=== PATIENT | male | born 1955 | race Caucasian/White ===

== ENCOUNTER 2018-09-21 05:11 | Emergency (ER) | payer MEDICAID, OTHER ==
[2018-09-21] MEDS ORDERED: TRANDATE 20 MG/5 ML SYRINGE IV ONE ×2 (05:46→06:04)
[2018-09-21] MEDS ORDERED: Sodium Chloride 0.9% 1000 ML 1,000 ML ONE (05:48)
[2018-09-21] MEDS ORDERED: Sodium Chloride 0.9% 1000 ML 1,000 ML IV SCH (06:00)
--- NOTE | 2018-09-21 06:01 | ERPHSYRPT ---
- History of Present Illness Source: family Exam Limitations: clinical condition Timing/Duration: today Severity: severe Character of Deficits: general (difuse) Deficits: cannot stand, cannot walk Baseline/Normal Cognition: alert oriented x 3 Current Cognition: alert but confused Baseline Gait: walks w/o assistance Associated Symptoms: denies symptoms <MATILDEVANI - Last Filed: 09/21/18 07:07> <RICHAR DURBIN - Last Filed: 09/21/18 11:16> - History of Present Illness Time Seen by Provider: 09/21/18 05:40 Physician History: According to his ex , he called is neighbor about one hour ago. His neighbor rushed to his home, she found him on the floor, he is alert, lethargic , verbally responding but confused. Upon arrival his rectal temperature is 93.4 F. He answers simple questions, denies any pain, headaches, chest pain, SOB, nausea, he moves all 4 extremities.His blood pressure was found elevated. According to his ex he has not been taking any medications. (VANI CLAYTON ) Allergies/Adverse Reactions: naproxen Allergy (Verified 09/21/18 05:14) - Review of Systems Constitutional: Other (hypothermia) Respiratory: No Symptoms Cardiac: No Symptoms Abdominal/Gastrointestinal: No Symptoms All Other Systems: Unable due to condition <VANI CLAYTON - Last Filed: 09/21/18 07:07> - [place] Coma Scale Best Eye Response ([place]): (4) open spontaneously Best Verbal Response (Vin[place]): (4) confused conversation Best Motor Response (Vin[place]): (5) localizes to pain [place] Total: 13 - Physical Exam General Appearance: no apparent distress Eye Exam: bilateral eye: PERRL, EOMI Ears, Nose, Throat Exam: normal ENT inspection, pharynx normal, moist mucous membranes Neck Exam: normal inspection, non-tender, supple, No carotid bruit, No JVD Respiratory: normal breath sounds, lungs clear, airway intact, No chest tenderness, No respiratory distress Cardiovascular: regular rate/rhythm, normal heart sounds, normal peripheral pulses, No murmur Gastrointestinal: soft, normal bowel sounds, No tenderness, No distention, No mass, No guarding, No ecchymosis, No pulsatile mass, No rebound, No organomegaly Male Genitalia: normal genitalia Back Exam: normal inspection, No CVA tenderness Extremity Exam: normal inspection, pelvis stable Peripheral Pulses: carotid (R): 3+, carotid (L): 3+, femoral (R): 2+, femoral (L ): 2+, dorsalis-pedis (R): 2+, dorsalis-pedis (L): 2+ Mental Status: alert, disoriented to place, disoriented to time, lethargy improvement manager Exam: normal speech Motor/Sensory: no motor deficit DTR: bicep (R): 2+, bicep (L): 2+, knee (R): 2+, knee (L): 2+, ankle (R): 2+, ankle (L): 2+ Skin Exam: normal color, warm, dry, No rash SpO2 Interpretation: normal O2 Delivery: Room Air <LEELAUNRULYVANI Filed: 09/21/18 07:07> - Nursing Vital Signs Nursing Vital Signs: Initial Vital Signs Temperature 93.2 F 09/21/18 05:15 Pulse Rate 66 09/21/18 05:15 Respiratory Rate 18 09/21/18 05:15 Blood Pressure 212/110 09/21/18 05:15 O2 Sat by Pulse Oximetry 94 L 09/21/18 05:15 Pain Scale Pain Intensity 0 - Course Nursing assessment & vital signs reviewed: Yes EKG Interpreted by Me: RATE (61/min), NORMAL AXIS, NORMAL INTERVALS, Right Bundle Branch Block, Non-specific ST Changes <LEELAUNRULYVANI Filed: 09/21/18 07:07> Ordered Tests: Active Orders 24 hr Category Date Time Status Crop Duster STAT Care 09/21/18 05:49 Active EKG-ER Only STAT Care 09/21/18 05:46 Active IV Insertion STAT Care 09/21/18 05:46 Active CERVICAL SPINE WO CONTRAST [CT] Stat Exams 09/21/18 05:51 Completed CHEST 1 VIEW (PORTABLE) Stat Exams 09/21/18 05:49 Completed HEAD WITHOUT CONTRAST [CT] Stat Exams 09/21/18 05:52 Completed PELVIS WITHOUT CONTRAST [CT] Stat Exams 09/21/18 07:08 Completed ARTERIAL BLOOD GASES Urgent Lab 09/21/18 06:07 Completed BLOOD CULTURE Stat Lab 09/21/18 07:56 Received CBC W DIFF Stat Lab 09/21/18 06:00 Completed CK-Creatinine Phosphokinase Stat Lab 09/21/18 06:00 Completed CMP Stat Lab 09/21/18 06:00 Completed ETHYL ALCOHOL Stat Lab 09/21/18 06:00 Completed Glucose,Critical Care Stat Lab 09/21/18 07:45 Completed Lactic Acid Stat Lab 09/21/18 06:07 Completed Lactic Acid Stat Lab 09/21/18 08:11 Completed Lactic Acid Stat Lab 09/21/18 10:45 Ordered MAGNESIUM Stat Lab 09/21/18 06:00 Completed NT PRO BNP Stat Lab 09/21/18 06:00 Completed PROTIME WITH INR Stat Lab 09/21/18 06:00 Completed PTT Stat Lab 09/21/18 06:00 Completed TROPONIN Q3H Lab 09/21/18 06:00 Completed TROPONIN Q3H Lab 09/21/18 07:52 Completed Medication Summary Discontinued Medications Generic Name Dose Route Start Last Admin Trade Name Freq PRN Reason Stop Dose Admin Sodium Chloride Confirm 09/21/18 05:48 Sodium Chloride 0.9% 1000 Ml Administered 09/21/18 05:49 Dose 1,000 mls @ ud .ROUTE .STK-MED ONE Sodium Chloride 1,000 mls @ 150 mls/hr 09/21/18 06:00 09/21/18 06:06 Sodium Chloride 0.9% 1000 Ml IV 10/21/18 05:59 150 mls/hr .Q6H40M BRUCE Administration Labetalol HCl 200 mg/ Sodium 190 mls @ 120 mls/hr 09/21/18 08:15 Chloride IV 10/21/18 08:14 .Q1H35M BRUCE Labetalol HCl 20 mg 09/21/18 05:46 09/21/18 06:05 Trandate 20 Mg/5 Ml Syringe IV 09/21/18 05:47 20 mg STAT ONE Administration Labetalol HCl Confirm 09/21/18 06:04 Trandate 20 Mg/5 Ml Syringe Administered 09/21/18 06:05 Dose 20 mg IV .STK-MED ONE Lab/Rad Data: Laboratory Result Diagrams 09/21/18 06:00 09/21/18 06:00 Laboratory Results 09/21/18 09/21/18 09/21/18 Range/Units 08:11 07:52 07:45 WBC (4.0-10.5) K/mm3 RBC (4.1-5.6) M/mm3 Hgb (12.5-18.0) gm/dl Hct (42-50) % MCV (78-100) fl MCH (26-32) pg MCHC (32-36) g/dl RDW (11.5-14.0) % Plt Count (150-450) K/mm3 MPV (6-9.5) fl Gran % (36.0-66.0) % Eos # (Auto) (0-0.5) Absolute Lymphs (auto) (1.0-4.6) Absolute Monos (auto) (0.0-1.3) Lymphocytes % (24.0-44.0) % Monocytes % (0.0-12.0) % Eosinophils % (0.00-5.0) % Basophils % (0.0-0.4) % Absolute Granulocytes (1.4-6.9) Basophils # (0-0.4) PT (8.83-12.87) SECONDS INR (0.8-3.0) APTT (24.1-36.1) SECONDS Puncture Site pCO2 (35-45) mmHg pO2 (75-100) mmHg Base Excess (-2.0-2.0) O2 Saturation (94-100) g/dF ABG pH (7.35-7.45) ABG HCO3 (22-28) ABG O2 Sat (Measured) (95-100) % Taiwo Test A-a Gradient a/A Ratio Hemoglobin Carboxyhemoglobin (0.0-6.9) % THgb Methemoglobin (1.4-1.5) % Temperature C POC O2 Flow Rate % Sodium (137-145) mmol/L Potassium (3.5-5.1) mmol/L Chloride (98-107) mmol/L Carbon Dioxide (22-30) mmol/L Anion Gap (5-15) MEQ/L BUN (9-20) mg/dL Creatinine (0.66-1.25) mg/dL Estimated GFR ML/MIN Glucose 215 H (74-106) mg/dL Lactic Acid 2.2 H (0.4-2.0) Calcium (8.4-10.2) mg/dL Magnesium (1.6-2.3) mg/dL Total Bilirubin (0.2-1.3) mg/dL AST (17-59) U/L ALT (0-50) U/L Alkaline Phosphatase (38-126) U/L Creatine Kinase (55-170) U/L Troponin I 0.026 (0.000-0.034) ng/mL NT-Pro-B Natriuret Pep (0-900) pg/mL Serum Total Protein (6.3-8.2) g/dL Albumin (3.5-5.0) g/dL Ethyl Alcohol (0-10) mg/dL 09/21/18 09/21/18 09/21/18 Range/Units 06:07 06:07 06:00 WBC (4.0-10.5) K/mm3 RBC (4.1-5.6) M/mm3 Hgb (12.5-18.0) gm/dl Hct (42-50) % MCV (78-100) fl MCH (26-32) pg MCHC (32-36) g/dl RDW (11.5-14.0) % Plt Count (150-450) K/mm3 MPV (6-9.5) fl Gran % (36.0-66.0) % Eos # (Auto) (0-0.5) Absolute Lymphs (auto) (1.0-4.6) Absolute Monos (auto) (0.0-1.3) Lymphocytes % (24.0-44.0) % Monocytes % (0.0-12.0) % Eosinophils % (0.00-5.0) % Basophils % (0.0-0.4) % Absolute Granulocytes (1.4-6.9) Basophils # (0-0.4) PT (8.83-12.87) SECONDS INR (0.8-3.0) APTT (24.1-36.1) SECONDS Puncture Site LEFT BRACHIAL pCO2 45 (35-45) mmHg pO2 71 L (75-100) mmHg Base Excess 1.7 (-2.0-2.0) O2 Saturation 93.4 L (94-100) g/dF ABG pH 7.39 (7.35-7.45) ABG HCO3 27.2 (22-28) ABG O2 Sat (Measured) 96.8 (95-100) % Taiwo Test NOT APPLICABLE A-a Gradient 22 a/A Ratio 0.76 Hemoglobin 15.1 Carboxyhemoglobin 2.7 (0.0-6.9) % THgb Methemoglobin 0.7 L (1.4-1.5) % Temperature 37.0 C POC O2 Flow Rate 21 % Sodium (137-145) mmol/L Potassium 3.0 L (3.5-5.1) mmol/L Chloride (98-107) mmol/L Carbon Dioxide (22-30) mmol/L Anion Gap (5-15) MEQ/L BUN (9-20) mg/dL Creatinine (0.66-1.25) mg/dL Estimated GFR ML/MIN Glucose (74-106) mg/dL Lactic Acid 2.3 H (0.4-2.0) Calcium (8.4-10.2) mg/dL Magnesium (1.6-2.3) mg/dL Total Bilirubin (0.2-1.3) mg/dL AST (17-59) U/L ALT (0-50) U/L Alkaline Phosphatase (38-126) U/L Creatine Kinase (55-170) U/L Troponin I 0.024 (0.000-0.034) ng/mL NT-Pro-B Natriuret Pep (0-900) pg/mL Serum Total Protein (6.3-8.2) g/dL Albumin (3.5-5.0) g/dL Ethyl Alcohol (0-10) mg/dL 09/21/18 09/21/18 09/21/18 Range/Units 06:00 06:00 06:00 WBC 8.2 (4.0-10.5) K/mm3 RBC 5.08 (4.1-5.6) M/mm3 Hgb 14.4 (12.5-18.0) gm/dl Hct 43.7 (42-50) % MCV 86.0 (78-100) fl MCH 28.3 (26-32) pg MCHC 33.0 (32-36) g/dl RDW 14.8 H (11.5-14.0) % Plt Count 305 (150-450) K/mm3 MPV 10.1 H (6-9.5) fl Gran % 71.2 H (36.0-66.0) % Eos # (Auto) 0.15 (0-0.5) Absolute Lymphs (auto) 1.76 (1.0-4.6) Absolute Monos (auto) 0.40 (0.0-1.3) Lymphocytes % 21.5 L (24.0-44.0) % Monocytes % 4.9 (0.0-12.0) % Eosinophils % 1.8 (0.00-5.0) % Basophils % 0.6 (0.0-0.4) % Absolute Granulocytes 5.81 (1.4-6.9) Basophils # 0.05 (0-0.4) PT 12.2 (8.83-12.87) SECONDS INR 1.05 (0.8-3.0) APTT 29.5 (24.1-36.1) SECONDS Puncture Site pCO2 (35-45) mmHg pO2 (75-100) mmHg Base Excess (-2.0-2.0) O2 Saturation (94-100) g/dF ABG pH (7.35-7.45) ABG HCO3 (22-28) ABG O2 Sat (Measured) (95-100) % Taiwo Test A-a Gradient a/A Ratio Hemoglobin Carboxyhemoglobin (0.0-6.9) % THgb Methemoglobin (1.4-1.5) % Temperature C POC O2 Flow Rate % Sodium 140 (137-145) mmol/L Potassium 3.1 L (3.5-5.1) mmol/L Chloride 104 (98-107) mmol/L Carbon Dioxide 28 (22-30) mmol/L Anion Gap 11.9 (5-15) MEQ/L BUN 16 (9-20) mg/dL Creatinine 1.14 (0.66-1.25) mg/dL Estimated GFR > 60.0 ML/MIN Glucose 248 H (74-106) mg/dL Lactic Acid (0.4-2.0) Calcium 9.4 (8.4-10.2) mg/dL Magnesium 2.1 (1.6-2.3) mg/dL Total Bilirubin 0.40 (0.2-1.3) mg/dL AST 23 (17-59) U/L ALT 31 (0-50) U/L Alkaline Phosphatase 86 (38-126) U/L Creatine Kinase 104 (55-170) U/L Troponin I (0.000-0.034) ng/mL NT-Pro-B Natriuret Pep 328 (0-900) pg/mL Serum Total Protein 7.7 (6.3-8.2) g/dL Albumin 4.1 (3.5-5.0) g/dL Ethyl Alcohol < 10 (0-10) mg/dL - Progress Progress: improved <VANI CLAYTON - Last Filed: 09/21/18 07:07> <RICHAR DURBIN - Last Filed: 09/21/18 11:16> - Progress Progress Note: 09/21/18 07:08 Case was discussed with Dr Durbin, he will follow up on patient's results. ( VANI CLAYTON) 09/21/18 07:57 + This is a 63-year-old white male initially seen by Dr. Umanzor patient apparently found on a somewhat lethargic is noted to be hypertensive and hypothermic on arrival. Patient is just back from CT. he appears to have a celebellar bleed on Ct my read. Patient is somnolent but does answer questions and opens eyes to command moves to command. Patient initially given labetalol on arrival initial blood pressure 212/110. Blood pressure is now 179/100. Call has been placed to [facility] family and consumer sciences teacher for possible transfer . 09/21/18 08:[address] intercranial bleed cerebellar area. Chest x-ray no acute disease process noted. CT C-spine my read no acute fractures noted. Patient with sinus rhythm 61 bpm normal axis of T wave inversion V1 through V3 no acute ST elevation Patient was hypertensive last blood pressure 179 over 104, labetalol drip is starting, I patient receiving normal saline at 150 mL per hour. Patient with [place] Coma Scale 12-13. I discussed case with Dr. north at [facility] she accepted patient for transfer. Diagnosis mental status change 2. Intercranial bleed 3. Hypertension or. Hypothermia. Patient will be sent by [facility] ambulance given a bear hugger. His 09/21/18 08:28 Physical examination patient will respond to patient's name. Opens eyes to command. Moves to command. Cannot understand speech at this time.. GCS 12-13. Head is atraumatic normocephalic. Eyes PERRLA EOMI fundi are unremarkable. Nose is clear throat is clear. Neck is nontender Lungs are clear. Heart regular rate and rhythm without murmur abdomen soft nontender nondistended positive bowel sounds. Extremities pulses equal symmetrical 2 over 4. Neuro as noted above. 09/21/18 11:15 (RICHAR DURBIN) <VANI CLAYTON - Last Filed: 09/21/18 07:07> - Departure Departure Disposition: Transfer ([facility]) Critical Care Time: No <RICHAR DURBIN - Last Filed: 09/21/18 11:16> - Departure Clinical Impression: Intracranial bleed Change in mental status Qualifiers: Altered mental status type: unspecified Qualified Code(s): R41.82 - Altered mental status, unspecified Hypothermia Qualifiers: Encounter type: initial encounter Qualified Code(s): T68.XXXA - Hypothermia, initial encounter Hypertension Qualifiers: Hypertension type: unspecified Qualified Code(s): I10 - Essential (primary) hypertension Condition: Fair Referrals: RONNIE RICCI PA [Primary Care Provider] -
[2018-09-21 06:18] LABS: BASOPHIL % 0.6 % (0.0-0.4); Basophil (Absolute #) 0.05 (0-0.4); Eosinophil % 1.8 % (0.00-5.0); Eosinophil (Absolute #) 0.15 (0-0.5); Granulocyte Absolute (ANC) 5.81 (1.4-6.9); Granulocytes % 71.2 % (36.0-66.0); Hematocrit 43.7 % (42-50); Hemoglobin 14.4 gm/dl (12.5-18.0); Lymphocyte (Absolute #) 1.76 (1.0-4.6); Lymphocytes % 21.5 % (24.0-44.0); Mean Corpuscular Hemoglobin 28.3 pg (26-32); Mean Platelet Volume 10.1 fl (6-9.5); Monocytes % 4.9 % (0.0-12.0); Platelet Count 305 K/mm3 (150-450); Red Blood Count 5.08 M/mm3 (4.1-5.6); Red Cell Distribution Width 14.8 % (11.5-14.0); White Blood Count 8.2 K/mm3 (4.0-10.5)
[2018-09-21 06:21] LABS: A-aADO2 22; ABG HEMOGLOBIN 15.1; ARTERIAL BLD GAS O2 SATURATION 96.8 % (95-100); ARTERIAL BLOOD GAS BASE EXCESS 1.7 (-2.0-2.0); ARTERIAL BLOOD GAS FIO2 21 %; ARTERIAL BLOOD GAS PCO2 45 mmHg (35-45); ARTERIAL BLOOD GAS PO2 71 mmHg (75-100); ARTERIAL BLOOD GAS pH 7.39 (7.35-7.45); CARBOXYHEMOGLOBIN 2.7 % THgb (0.0-6.9); HCO3- 27.2 (22-28); HGB O2 SAT 93.4 g/dF (94-100); Methhemoglobin 0.7 % (1.4-1.5); paO2 pAO1 0.76
[2018-09-21 06:22] LABS: ABG SITE LEFT BRACHIAL
[2018-09-21 06:24] LABS: Lactic Acid 2.3 (0.4-2.0)
[2018-09-21 06:35] LABS: INR 1.05 (0.8-3.0); PROTIME 12.2 SECONDS (8.83-12.87)
[2018-09-21 06:36] LABS: PTT 29.5 SECONDS (24.1-36.1)
[2018-09-21 06:38] LABS: ALBUMIN 4.1 g/dL (3.5-5.0); ALKALINE PHOSPHATASE 86 U/L (38-126); ANION GAP 11.9 MEQ/L (5-15); BLOOD UREA NITROGEN 16 mg/dL (9-20); CHLORIDE 104 mmol/L (98-107); CK-Creatinine Phosphokinase 104 U/L (55-170); Calcium 9.4 mg/dL (8.4-10.2); Carbon Dioxide 28 mmol/L (22-30); Creatinine 1 1.14 mg/dL (0.66-1.25); ETHYL ALCOHOL < 10 mg/dL (0-10); Glucose 248 mg/dL (74-106); MAGNESIUM 2.1 mg/dL (1.6-2.3); NT PRO BNP 328 pg/mL (0-900); Potassium 3.1 mmol/L (3.5-5.1); SGOT/AST 23 U/L (17-59); SGPT/ALT 31 U/L (0-50); SODIUM 140 mmol/L (137-145); Total Protein 7.7 g/dL (6.3-8.2)
[2018-09-21] MEDS ORDERED: TRANDATE 100 MG/20 ML MDV FOR DRIP*** 200 MG in Sodium Chloride 0.9% 150 ML 150 ML IV SCH (08:15)
[2018-09-21 08:30] VITALS: BP 179/104; PULSE 58; O2SAT 98
--- NOTE | 2018-09-21 08:35 | XRAY ---
Indication: Found unresponsive on floor. Multiple contiguous axial images obtained through the cervical spine. Sagittal and coronal reformatted images obtained. Comparison: None Axial images negative for acute fracture, suspicious bony lesions, or spinal canal stenosis. Minimal C5-C6 endplate spurring and mild multilevel bilateral degenerative facet hypertrophy. Sagittal and coronal reformatted images demonstrates normal alignment with vertebral body heights/disc spaces maintained. No acute compression fracture, subluxation, or jumped facet. Normal-appearing cranial cervical junction. Visualized noncontrasted soft tissues unremarkable. Incidental biapical pleural-parenchymal fibrosis/scarring. CT head reported separately. Impression: 1. Negative acute fracture/subluxation. 2. Incidental multilevel degenerative changes. CT DI 64.26
--- NOTE | 2018-09-21 08:35 | XRAY ---
Indication: Found unresponsive. Cerebellar bleed. Multiple contiguous axial images obtained through the head without contrast. Comparison: None Left cerebellum demonstrates 1.7 x 2.7 x 2.7 cm focus of acute parenchymal hemorrhage without significant mass effect. Small subcentimeter remote infarct in the left mid periventricular white matter. Fourth ventricle is midline without hydrocephalus. [place]-white matter differentiation preserved. Bony calvarium intact. Visualized paranasal sinuses and mastoid air cells are clear. Impression: 1. Left cerebellum acute parenchymal hemorrhage without mass effect as detailed. Rule out hypertension as etiology. 2. 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 CT DI 50.75
--- NOTE | 2018-09-21 08:41 | XRAY ---
Indication: Found unresponsive. Comparison: None Portable chest is slightly underinflated without focal infiltrate, consolidation, or large effusion. Heart is not enlarged with previous cardiac valvular surgery. Bony thorax intact with mild osteopenia. Impression: Nonacute chest with chronic features.
--- NOTE | 2018-09-21 08:41 | XRAY ---
Indication: Found unresponsive on floor. Multiple contiguous axial images obtained through the pelvis with special attention to the osseous structures. Sagittal and coronal reformatted images obtained. Comparison: None Age-related osteopenia. No acute fracture or suspicious bony lesions. Hips demonstrate mild/moderate degenerative arthropathy, left greater than right. L4-L5 broad-based disc bulge with spinal canal stenosis. Visualized noncontrasted soft tissues demonstrates sigmoid diverticulosis. Significantly distended urinary bladder concerning for outlet obstruction versus neurogenic bladder. [place] benign prostate calcifications and scattered aortoiliac calcifications. Impression: 1. Negative acute fracture/dislocation. 2. Osteopenia and bilateral hip degenerative arthropathy, left greater than right. 3. Abnormally distended urinary bladder. Rule out outlet obstruction versus neurogenic bladder. 4. L4-L5 disc bulge with spinal canal stenosis. Outpatient MRI may yield further information. 5. Sigmoid diverticulosis. CT DI 45.55
[2018-09-21 08:45] LABS: Lactic Acid 2.2 (0.4-2.0)
== END 2018-09-21 08:50 | disposition short-term general hospital (02) ==
LOC: ED 05:11
DX: I62.9 Nontraumatic intracranial hemorrhage, unspecified (principal); T68.XXXA Hypothermia, initial encounter; I10 Essential (primary) hypertension
CPT/HCPCS: 36415; 36600; 70450; 71045; 72125; 72192; 80053; 80307; 82375; 82550; 82803; 82947; 83605; 83735; 83880; 84484; 85025; 85610; 85730; 87040; 93005; 93041; 96374; 99285; 99291; 99292; G0480

== ENCOUNTER 2021-02-06 11:13 | Emergency (ER) | payer MEDICAID, MEDICARE ==
[2021-02-06] MEDS ORDERED: MORPHINE SULFATE 4 MG INJ IV ONE (11:50)
[2021-02-06] MEDS ORDERED: Zofran 4 MG/2 ML VIAL IV ONE (11:50)
[2021-02-06] MEDS ORDERED: Zofran 4 MG/2 ML VIAL ONE (11:56)
[2021-02-06] MEDS ORDERED: MORPHINE SULFATE 4 MG INJ ONE (11:56)
[2021-02-06 12:10] LABS: Absolute Neutrophil Ct (ANC) 3.99 (1.4-6.9); BASOPHIL % 0.5 % (0.0-0.4); Basophil (Absolute #) 0.03 (0-0.4); Eosinophil % 1.1 % (0.00-5.0); Eosinophil (Absolute #) 0.07 (0-0.5); Hemoglobin 14.4 gm/dl (12.5-18.0); Lymphocyte (Absolute #) 1.43 (1.0-4.6); Lymphocytes % 22.3 % (24.0-44.0); Mean Cell Volume 90.9 fl (78-100); Mean Corpuscular Hemoglobin 28.5 pg (26-32); Mean Corpuscular Hgb Concent. 31.3 g/dl (32-36); Mean Platelet Volume 10.2 fl (7.5-11.0); Monocyte (Absolute #) 0.88 (0.0-1.3); Monocytes % 13.8 % (0.0-12.0); Neutrophil % 62.3 % (36.0-66.0); Platelet Count 193 K/mm3 (150-450); Red Blood Count 5.06 M/mm3 (4.1-5.6); Red Cell Distribution Width 15.1 % (11.5-14.0); White Blood Count 6.4 K/mm3 (4.0-10.5)
--- NOTE | 2021-02-06 12:25 | ERPHSYRPT ---
- History of Present Illness Time Seen by Provider: 02/06/21 11:25 Source: patient Patient Subjective Stated Complaint: Pt states "My back really hurts, I am not sure if it is my back or the bottom of my lungs but it only hurts in the back." Triage Nursing Assessment: Pt presented alert and oriented X3, skin pwd Pt ambulates with an upright steady gait, able to speak in clear full sentences pt slightly tachypneic and grunting when he moves. Physician History: Patient is a 65-year-old male presents to emergency department with complaints of back pain that has been ongoing for approximately 1 week. Pain described as an ache that radiates around to the abdominal area. Pain currently rated 9 out of 10. However patient states that pain increased from 4 out of 10. Symptoms are constant. No associated trauma. No fever. No nausea vomiting or diaphoresis. Patient denies chest pain. No shortness of breath. Patient denies injury. No recent back procedures. No change in bowel bladder function. No saddle anesthesia. Patient voices no other complaints or concerns at this time. Timing/Duration: day(s) (3 days ago) Severity: moderate Modifying Factors: Improves With: nothing (RN states that movement reproduces pain however patient states that pain is not related to movement.) Associated Symptoms: denies symptoms Allergies/Adverse Reactions: naproxen Allergy (Verified 09/21/18 05:14) Home Medications: Amlodipine Besylate 10 mg PO HS 02/06/21 [History] Aspirin 81 mg PO DAILY 02/06/21 [History] Atorvastatin Calcium 10 mg PO HS 02/06/21 [History] Famotidine 20 mg PO BID 02/06/21 [History] Gabapentin 400 mg PO DAILY 02/06/21 [History] Hydrochlorothiazide 12.5 mg PO DAILY 02/06/21 [History] Metoprolol Tartrate 50 mg [Lopressor 50 MG] 50 mg PO BID 02/06/21 [H istory] lisinopriL [Lisinopril] 20 mg PO DAILY 02/06/21 [History] Hx Tetanus, Diphtheria Vaccination/Date Given: No Hx Influenza Vaccination/Date Given: No Hx Pneumococcal Vaccination/Date Given: No Immunizations Up to Date: Yes Travel Risk - International Travel Have you traveled outside of the country in past 3 weeks: No - Coronavirus Screening Are you exhibiting any of the following symptoms?: No Close contact with a COVID-19 positive Pt in past 14-21 Days: No - Vaccine Status Have you recieved a Covid-19 vaccination: No - Review of Systems Constitutional: No Symptoms, No Fever, No Chills Eyes: No Symptoms Ears, Nose, & Throat: No Symptoms Respiratory: No Symptoms, No Cough, No Dyspnea Cardiac: No Symptoms, No Chest Pain, No Edema, No Syncope Abdominal/Gastrointestinal: No Symptoms, No Abdominal Pain, No Nausea, No Vomiting, No Diarrhea Genitourinary Symptoms: No Symptoms, No Dysuria Musculoskeletal: No Symptoms, No Back Pain, No Neck Pain Skin: No Symptoms, No Rash Neurological: No Symptoms, No Dizziness, No Focal Weakness, No Sensory Changes Psychological: No Symptoms Endocrine: No Symptoms Hematologic/Lymphatic: No Symptoms Immunological/Allergic: No Symptoms All Other Systems: Reviewed and Negative - Past Medical History Pertinent Past Medical History: Yes Neurological History: No Pertinent History ENT History: No Pertinent History Cardiac History: Coronary Artery Disease Respiratory History: No Pertinent History Endocrine Medical History: No Pertinent History Musculoskeletal History: No Pertinent History GI Medical History: No Pertinent History History: No Pertinent History Psycho-Social History: No Pertinent History Male Reproductive Disorders: No Pertinent History - Past Surgical History Past Surgical History: Yes Neuro Surgical History: No Pertinent History Cardiac: CABG, Valve Replacement Respiratory: No Pertinent History Gastrointestinal: No Pertinent History Genitourinary: No Pertinent History Musculoskeletal: No Pertinent History Male Surgical History: No Pertinent History Other Surgical History: Triple Bypass and Valve Replacement 2009 - Social History Smoking Status: Former smoker Exposure to second hand smoke: Yes Drug Use: none Patient Lives Alone: Yes - Nursing Vital Signs Nursing Vital Signs: Initial Vital Signs Temperature 98.8 F 02/06/21 11:17 Pulse Rate 90 02/06/21 11:17 Respiratory Rate 24 02/06/21 11:17 Blood Pressure 128/84 02/06/21 11:17 O2 Sat by Pulse Oximetry 96 02/06/21 11:17 Pain Scale Pain Intensity [Lower Back] 8 Pain Intensity 0 - Physical Exam General Appearance: no apparent distress, alert Eye Exam: PERRL/EOMI, eyes nml inspection Ears, Nose, Throat Exam: normal ENT inspection, TMs normal, pharynx normal, moist mucous membranes Neck Exam: normal inspection, non-tender, supple, full range of motion Respiratory Exam: normal breath sounds, lungs clear, No respiratory distress Cardiovascular Exam: regular rate/rhythm, normal heart sounds, normal peripheral pulses Gastrointestinal/Abdomen Exam: soft, normal bowel sounds, No tenderness, No mass Back Exam: normal inspection, normal range of motion, other (No focal back tenderness. Unable to reproduce pain with movement and palpation. No signs of trauma.), No CVA tenderness, No vertebral tenderness Extremity Exam: normal inspection, normal range of motion, pelvis stable Neurologic Exam: alert, oriented x 3, cooperative, normal mood/affect, sensation nml, No motor deficits Skin Exam: normal color, warm, dry, No rash Lymphatic Exam: No adenopathy SpO2 Interpretation: normal SpO2: 96 O2 Delivery: Room Air - Course Nursing assessment & vital signs reviewed: Yes EKG Interpreted by Me: RATE (77), Sinus Rhythm, NORMAL AXIS, NORMAL INTERVALS Ordered Tests: Active Orders 24 hr Category Date Time Status EKG-ER Only STAT Care 02/06/21 11:50 Active IV Insertion STAT Care 02/06/21 11:50 Active ABDOMEN AND PELVIS W CONTRAST [CT] Stat Exams 02/06/21 11:51 Completed CBC W DIFF Stat Lab 02/06/21 12:05 Completed CMP Stat Lab 02/06/21 12:05 Completed LIPASE Stat Lab 02/06/21 12:05 Completed TROPONIN Q3H Lab 02/06/21 12:05 Completed TROPONIN Q3H Lab 02/06/21 15:30 Received TROPONIN Q3H Lab 02/06/21 18:00 Ordered TROPONIN Q3H Lab 02/06/21 21:00 Ordered TROPONIN Q3H Lab 02/07/21 00:00 Ordered UA W/RFX UR CULTURE Stat Lab 02/06/21 12:05 Completed Medication Summary Discontinued Medications Generic Name Dose Route Start Last Admin Trade Name Freq PRN Reason Stop Dose Admin Morphine Sulfate 4 mg 02/06/21 11:50 02/06/21 11:57 Morphine Sulfate 4 Mg Inj IV 02/06/21 11:51 4 mg STAT ONE Administration Morphine Sulfate Confirm 02/06/21 11:56 Morphine Sulfate 4 Mg Inj Administered 02/06/21 11:57 Dose 4 mg .ROUTE .STK-MED ONE Ondansetron HCl 4 mg 02/06/21 11:50 02/06/21 11:58 Zofran 4 Mg/2 Ml Vial IV 02/06/21 11:51 4 mg STAT ONE Administration Ondansetron HCl Confirm 02/06/21 11:56 Zofran 4 Mg/2 Ml Vial Administered 02/06/21 11:57 Dose 4 mg .ROUTE .STK-MED ONE Lab/Rad Data: Laboratory Result Diagrams 02/06/21 12:05 02/06/21 12:05 Laboratory Results 02/06/21 02/06/21 02/06/21 Range/Units 12:05 12:05 12:05 WBC (4.0-10.5) K/mm3 RBC (4.1-5.6) M/mm3 Hgb (12.5-18.0) gm/dl Hct (42-50) % MCV (78-100) fl MCH (26-32) pg MCHC (32-36) g/dl RDW (11.5-14.0) % Plt Count (150-450) K/mm3 MPV (7.5-11.0) fl Gran % (36.0-66.0) % Eos # (Auto) (0-0.5) Absolute Lymphs (auto) (1.0-4.6) Absolute Monos (auto) (0.0-1.3) Lymphocytes % (24.0-44.0) % Monocytes % (0.0-12.0) % Eosinophils % (0.00-5.0) % Basophils % (0.0-0.4) % Absolute Granulocytes (1.4-6.9) Basophils # (0-0.4) Sodium 138 (137-145) mmol/L Potassium 4.5 (3.5-5.1) mmol/L Chloride 101 (98-107) mmol/L Carbon Dioxide 26 (22-30) mmol/L Anion Gap 15.8 H (5-15) MEQ/L BUN 18 (9-20) mg/dL Creatinine 1.58 H (0.66-1.25) mg/dL Estimated GFR 46.9 ML/MIN Glucose 196 H (74-106) mg/dL Calcium 9.5 (8.4-10.2) mg/dL Total Bilirubin 0.40 (0.2-1.3) mg/dL AST 39 (17-59) U/L ALT 34 (0-50) U/L Alkaline Phosphatase 65 (38-126) U/L Troponin I < 0.012 (0.000-0.034) ng/mL Serum Total Protein 7.7 (6.3-8.2) g/dL Albumin 4.2 (3.5-5.0) g/dL Lipase 115 (23-300) U/L Urine Color YELLOW (YELLOW) Urine Appearance CLEAR (CLEAR) Urine pH 5.0 (5-6) Ur Specific [place] 1.015 (1.005-1.025) Urine Protein NEGATIVE (Negative) Urine Ketones NEGATIVE (NEGATIVE) Urine Blood NEGATIVE (0-5) Ryan/ul Urine Nitrite NEGATIVE (NEGATIVE) Urine Bilirubin NEGATIVE (NEGATIVE) Urine Urobilinogen NEGATIVE (0-1) mg/dL Ur Leukocyte Esterase NEGATIVE (NEGATIVE) Urine WBC (Auto) NONE (0-5) /HPF Urine RBC (Auto) NONE (0-2) /HPF U Hyaline Cast (Auto) 0-2 (0-2) /LPF Urine Mucus (Auto) SLIGHT (NEGATIVE) /HPF Urine Culture Reflexed NO (NO) Urine Glucose 50 (NEGATIVE) mg/dL 02/06/21 Range/Units 12:05 WBC 6.4 (4.0-10.5) K/mm3 RBC 5.06 (4.1-5.6) M/mm3 Hgb 14.4 (12.5-18.0) gm/dl Hct 46.0 (42-50) % MCV 90.9 (78-100) fl MCH 28.5 (26-32) pg MCHC 31.3 L (32-36) g/dl RDW 15.1 H (11.5-14.0) % Plt Count 193 (150-450) K/mm3 MPV 10.2 (7.5-11.0) fl Gran % 62.3 (36.0-66.0) % Eos # (Auto) 0.07 (0-0.5) Absolute Lymphs (auto) 1.43 (1.0-4.6) Absolute Monos (auto) 0.88 (0.0-1.3) Lymphocytes % 22.3 L (24.0-44.0) % Monocytes % 13.8 H (0.0-12.0) % Eosinophils % 1.1 (0.00-5.0) % Basophils % 0.5 (0.0-0.4) % Absolute Granulocytes 3.99 (1.4-6.9) Basophils # 0.03 (0-0.4) Sodium (137-145) mmol/L Potassium (3.5-5.1) mmol/L Chloride (98-107) mmol/L Carbon Dioxide (22-30) mmol/L Anion Gap (5-15) MEQ/L BUN (9-20) mg/dL Creatinine (0.66-1.25) mg/dL Estimated GFR ML/MIN Glucose (74-106) mg/dL Calcium (8.4-10.2) mg/dL Total Bilirubin (0.2-1.3) mg/dL AST (17-59) U/L ALT (0-50) U/L Alkaline Phosphatase (38-126) U/L Troponin I (0.000-0.034) ng/mL Serum Total Protein (6.3-8.2) g/dL Albumin (3.5-5.0) g/dL Lipase (23-300) U/L Urine Color (YELLOW) Urine Appearance (CLEAR) Urine pH (5-6) Ur Specific [place] (1.005-1.025) Urine Protein (Negative) Urine Ketones (NEGATIVE) Urine Blood (0-5) Ryan/ul Urine Nitrite (NEGATIVE) Urine Bilirubin (NEGATIVE) Urine Urobilinogen (0-1) mg/dL Ur Leukocyte Esterase (NEGATIVE) Urine WBC (Auto) (0-5) /HPF Urine RBC (Auto) (0-2) /HPF U Hyaline Cast (Auto) (0-2) /LPF Urine Mucus (Auto) (NEGATIVE) /HPF Urine Culture Reflexed (NO) Urine Glucose (NEGATIVE) mg/dL - Progress Progress: improved Progress Note: 02/06/21 15:25 Patient's 8.5 mm lung nodule will require follow-up CT in 3 months. Patient is acute renal injury. Creatinine 1.58. Case discussed with Dr. Evans who states he will see patient next week. Patient to call office today to schedule an appointment. Patient to drink plenty of fluids. Per Dr. Evans no indication for admission at this time. Will discharge home. Plan of care discussed with patient. He will follow-up with Dr. Evans within 48 hours to schedule a follow-up appointment. He voices no other complaints or concerns at this time. Pain well controlled. 02/06/21 15:51 Discussed with .: Basia Will see patient in: office Counseled pt/family regarding: lab results, diagnosis, need for follow-up, rad results - Departure Departure Disposition: Home Clinical Impression: Lung nodule, Hepatic steatosis, Supraumbilical hernia, Constipation, D iverticulosis, Arthritis of spine, Acute renal injury Condition: Stable Critical Care Time: No Referrals: VIN EVANS MD [Primary Care Provider] - Additional Instructions: Discharge/Care Plan MARLINE GROVER was seen on 02/06/21 in the Emergency Room. The patient was counseled regarding Diagnosis,Lab results, Imaging studies, need for follow up and when to return to the Emergency Room. Prescriptions given: Discharge Note I have spoken with the patient and/or caregivers. I have explained the patient's condition, diagnosis and treatment plan based on the information available to me at this time. I have answered the patient's and/or caregiver's questions and addressed any concerns. The patient and/or caregivers have as good understanding of the patient's diagnosis, condition and treatment plan as can be expected at this point. The vital signs have been stable. The patient's condition is stable and appropriate for discharge from the emergency department. The patient will pursue further outpatient evaluation with the primary care physician or other designated or consulting physician as outlined in the discharge instructions. The patient and/or caregivers are agreeable to this plan of care and follow-up instructions have been explained in detail. The patient and/or caregivers have received these instruction. The patient/and or caregivers are aware that any significant change in condition or worsening of symptoms should prompt an immediate return to this or the closest emergency department or call 911.
[2021-02-06 12:36] LABS: ALBUMIN 4.2 g/dL (3.5-5.0); ANION GAP 15.8 MEQ/L (5-15); BILIRUBIN,TOTAL 0.4 mg/dL (0.2-1.3); Calcium 9.5 mg/dL (8.4-10.2); Creatinine 1 1.58 mg/dL (0.66-1.25); EST GLOMERULAR FILTRATION RATE 46.9 ML/MIN; Potassium 4.5 mmol/L (3.5-5.1); Total Protein 7.7 g/dL (6.3-8.2)
[2021-02-06 12:40] LABS: Appearance CLEAR (CLEAR); Bilirubin NEGATIVE (NEGATIVE); Blood NEGATIVE Ery/ul (0-5); Glucose 50 mg/dL (NEGATIVE); Hyaline Casts 0-2 /LPF (0-2); Ketones NEGATIVE (NEGATIVE); Leukocyte Esterase NEGATIVE (NEGATIVE); Mucus SLIGHT /HPF (NEGATIVE); Nitrite NEGATIVE (NEGATIVE); Protein,Urine Dip NEGATIVE (Negative); Specific Gravity 1.015 (1.005-1.025); Urobilinogen NEGATIVE mg/dL (0-1)
[2021-02-06 14:05] VITALS: O2SAT 96
--- NOTE | 2021-02-06 14:51 | XRAY ---
Exam: CT of the abdomen and pelvis with IV contrast from 02/06/2021. CTDI: 8.88 mGy Comparison: None. Indication: Flank pain. Technique: Post-IV contrast axial images were obtained through the abdomen and pelvis during automated injection of 80 cc of Isovue-370 contrast material. Reconstructed coronal and sagittal images were created and reviewed. No oral contrast was given. Findings: The visualized lung bases reveal minimal posterior dependent linear atelectasis within the posterior sulci. There is an 8.5 mm relatively round, noncalcified nodule at the anterior right lung base. I have no previous films with which to compare. Management should be based on Fleischner Society guidelines. Whether the patient is at low risk or high risk, soft tissue lung nodules greater than 8 mm in diameter may be managed by a follow-up CT in 3 months, PET-CT fusion scan, or tissue sampling. Of course, if there are any other imaging studies elsewhere at this level to determine whether this finding is new or old, that would be very helpful. The heart size is normal without pericardial effusion. I again see a mitral valve replacement. The liver appears of normal size. There is mild diffuse decreased attenuation within the liver suggestive of hepatic steatosis. No intrahepatic biliary duct distention or liver mass is seen. The spleen is of unremarkable size and reveals no mass. A calcified, mildly tortuous splenic artery is seen. The pancreas and adrenal glands appear unremarkable. The kidneys appear of average size. No renal mass, renal calculi, or hydronephrosis is seen. I believe there is some minimal sclerotic vascular calcification within each kidney. Both kidneys function on delay images. Moderate atherosclerotic vascular calcification is seen within the abdominal aorta and iliac arteries. There is also some vascular calcification within the proximal right renal artery and origin of the left renal artery. I also see mild vascular calcification at the origin of both the celiac axis and SMA. No abdominal aortic aneurysm or abnormal retroperitoneal lymphadenopathy is seen. There is no free peritoneal air or anterior bowel containing ventral hernia. There is minimal protrusion of intraperitoneal fat into the subcutaneous fat at the level of the umbilicus. There is also a tiny fat-containing supraumbilical hernia noted on sagittal image #108. The bowel appears nonobstructed. Moderate scattered stool is seen throughout the colon suggesting some constipation. Sigmoid colon diverticulosis without evidence of diverticulitis is seen. The appendix is identified and reveals no evidence of appendicitis. There is abundant intraperitoneal fat. The pelvis also reveals moderate atherosclerotic vascular calcification. The urinary bladder is distended and reveals a slightly thickened wall measuring up to 5 mm in thickness. Consider bladder wall hypertrophy, perhaps due to bladder outlet obstruction. Cystitis would need to be considered as well. The seminal vesicles appear unremarkable. The prostate gland measures about 4.7 cm in width and 3.9 cm in AP dimension on axial image #90. It contains moderate internal calcification. No other pelvic mass, abnormal pelvic lymphadenopathy, or free intraperitoneal fluid is seen. The skeleton reveals no acute fracture or aggressive bone lesion. Moderate osteophytes are seen within the lower thoracic spine. Smaller vertebral endplate spurs are seen throughout the lumbar spine. The lumbar disc heights remain well-preserved. There appears to be some mild diffuse annular bulging of the L4-L5 disc, more prominent to the right of midline. For example, see axial image #58. There is also seen on some of the sagittal images. For example, see sagittal image #83. Impression: 1. I see no definite renal or ureteral calculi, hydronephrosis, or other evidence of obstructive uropathy. 2. 8.5 mm round noncalcified lung nodule at anterior right lung base within right middle lobe. See above. 3. Hepatic steatosis. 4. Normal appendix. 5. Moderate sigmoid colon diverticulosis without evidence of diverticulitis. I also note moderate scattered fecal residue throughout the colon. There is no evidence of bowel obstruction or free air/free fluid. 6. The urinary bladder wall is mildly prominent in a diffuse manner measuring up to 5 mm in thickness. This could be due to bladder wall hypertrophy, perhaps due to bladder outlet obstruction, or possibly cystitis. Correlate clinically. The prostate gland is mildly enlarged containing significant internal calcification. 7. Broad-based posterior disc bulge involving the right side greater than the left side at L4-L5. See axial image #58. Correlate clinically.
[2021-02-06 15:27] VITALS: BP 117/79; PULSE 92
== END 2021-02-06 16:20 | disposition home or self-care (01) ==
LOC: ED 11:13
DX: N17.9 Acute kidney failure, unspecified (principal); M54.9 Dorsalgia, unspecified; Z79.899 Other long term (current) drug therapy; K76.0 Fatty (change of) liver, not elsewhere classified; K59.00 Constipation, unspecified; K57.90 Diverticulosis of intestine, part unspecified, without perforation or abscess without bleeding; R91.1 Solitary pulmonary nodule; K43.9 Ventral hernia without obstruction or gangrene; M47.9 Spondylosis, unspecified
CPT/HCPCS: 36000; 36415; 74177; 80053; 81001; 83690; 84484; 85025; 93005; 96374; 96375; 99284; J2270; J2405

== ENCOUNTER 2021-05-20 12:37 | Inpatient (IN) | payer MEDICAID, MEDICARE ==
[2021-05-20 13:10] LABS: Hematocrit 47.7 % (42-50); Hemoglobin 14.8 gm/dl (12.5-18.0); Mean Cell Volume 91.6 fl (78-100); Mean Corpuscular Hemoglobin 28.4 pg (26-32); Mean Platelet Volume 10.3 fl (7.5-11.0); Platelet Count 270 K/mm3 (150-450); Red Blood Count 5.21 M/mm3 (4.1-5.6); Red Cell Distribution Width 15.6 % (11.5-14.0)
[2021-05-20] MEDS ORDERED: SUBLIMAZE 100 MCG/2 ML IV ONE (13:15)
[2021-05-20] MEDS ORDERED: Zofran 4 MG/2 ML VIAL IV ONE (13:15)
[2021-05-20] MEDS ORDERED: Zofran 4 MG/2 ML VIAL ONE (13:19)
[2021-05-20] MEDS ORDERED: SUBLIMAZE 100 MCG/2 ML ONE (13:20)
[2021-05-20 13:21] LABS: White Blood Count 12.6 K/mm3 (4.0-10.5)
--- NOTE | 2021-05-20 13:21 | ERPHSYRPT ---
- History of Present Illness Historian: patient Exam Limitations: other (Very poor historian) Patient Subjective Stated Complaint: Pt states "I have belly pain since yesterday." Triage Nursing Assessment: Pt presented alert and oriented X 3, skin pwd Pt moaning and grunting. Pt tachypneic. PT will occasionally hold his abdomen. Physician History: 65 yo wm w infra-unbilical abdominal pain x 1 day. Pt is a very poor historian. Pain is rated 8/10, and he can not describe it. He has had diarrhea, nausea, and vomiting x1. Pt denies melena/hemato chezia/hematemesis/fever/dysuria/hematuria/fever/chest pain/cough/coryza. Timing/Duration: yesterday Activities at Onset: rest Quality: other (Can not describe) Abdominal Pain Onset Location: periumbilical Pain Radiation: no radiation Severity of Pain-Max: severe Severity of Pain-Current: severe Modifying Factors: Improves With: nothing Associated Symptoms: diarrhea, loss of appetite, nausea, vomiting, weakness, No back, No chest pain, No diaphoresis, No fever/chills, No fatigue, No headache, No heartburn, No neck pain, No rash, No shortness of breath, No syncope, No t esticular pain Previous symptoms: no prior history Allergies/Adverse Reactions: naproxen Allergy (Verified 05/20/21 20:19) Home Medications: Amlodipine Besylate 10 mg PO HS 02/06/21 [History] Aspirin 81 mg PO DAILY 02/06/21 [History] Atorvastatin Calcium 20 mg PO HS 02/06/21 [History] Famotidine 20 mg PO BID 02/06/21 [History] Gabapentin 400 mg PO BID 02/06/21 [History] Hydrochlorothiazide 12.5 mg PO DAILY 02/06/21 [History] Metoprolol Tartrate 50 mg [Lopressor 50 MG] 50 mg PO BID 02/06/21 [History] lisinopriL [Lisinopril] 20 mg PO DAILY 02/06/21 [History] Isosorbide Mononitrate [Isosorbide Mononitrate ER] 30 mg PO DAILY 05/20/21 [History] Hx Tetanus, Diphtheria Vaccination/Date Given: No Hx Influenza Vaccination/Date Given: No Hx Pneumococcal Vaccination/Date Given: No Immunizations Up to Date: Yes Travel Risk - International Travel Have you traveled outside of the country in past 3 weeks: No - Coronavirus Screening Are you exhibiting any of the following symptoms?: Yes Symptoms: Vomiting/Diarrhea Close contact with a COVID-19 positive Pt in past 14-21 Days: No - Vaccine Status Have you recieved a Covid-19 vaccination: No - Review of Systems Constitutional: No Symptoms Eyes: No Symptoms Ears, Nose, & Throat: No Symptoms Respiratory: No Symptoms Cardiac: No Symptoms Abdominal/Gastrointestinal: No Symptoms, Abdominal Pain, Nausea, Vomiting, Diarrhea Genitourinary Symptoms: No Symptoms Musculoskeletal: No Symptoms Skin: No Symptoms Neurological: No Symptoms Psychological: No Symptoms Endocrine: No Symptoms Hematologic/Lymphatic: No Symptoms Immunological/Allergic: No Symptoms - Past Medical History Pertinent Past Medical History: Yes Neurological History: No Pertinent History ENT History: No Pertinent History Cardiac History: Coronary Artery Disease Respiratory History: No Pertinent History Endocrine Medical History: No Pertinent History Musculoskeletal History: No Pertinent History GI Medical History: No Pertinent History History: No Pertinent History Psycho-Social History: No Pertinent History Male Reproductive Disorders: No Pertinent History - Past Surgical History Past Surgical History: Yes Neuro Surgical History: No Pertinent History Cardiac: CABG, Valve Replacement Respiratory: No Pertinent History Gastrointestinal: No Pertinent History Genitourinary: No Pertinent History Musculoskeletal: No Pertinent History Male Surgical History: No Pertinent History Other Surgical History: Triple Bypass and Valve Replacement 2009 - Social History Smoking Status: Never smoker Exposure to second hand smoke: No Drug Use: none Patient Lives Alone: No Significant Family History: no pertinent family hx - Nursing Vital Signs Nursing Vital Signs: Initial Vital Signs Temperature 97.1 F 05/20/21 12:38 Pulse Rate 81 05/20/21 12:38 Respiratory Rate 24 05/20/21 12:38 Blood Pressure 130/77 05/20/21 12:38 O2 Sat by Pulse Oximetry 96 05/20/21 12:38 Pain Scale Pain Intensity 6 WNL - Physical Exam General Appearance: mild distress (Due to pain) Eye Exam: PERRL/EOMI, eyes nml inspection Ears, Nose, Throat Exam: normal ENT inspection, TMs normal, pharynx normal, moist mucous membranes Neck Exam: normal inspection, non-tender, supple, full range of motion, No meningismus, No mass, No Brudzinski, No Kernig's Respiratory Exam: normal breath sounds, lungs clear, airway intact, No respiratory distress Cardiovascular Exam: regular rate/rhythm, normal heart sounds, normal peripheral pulses, No murmur Gastrointestinal/Abdomen Exam: soft, tenderness (Infra-umbilical ttp w guardinh), distention Back Exam: normal inspection, normal range of motion, No CVA tenderness Extremity Exam: normal inspection, normal range of motion Neurologic Exam: alert, oriented x 3, cooperative, intensive care unit registered nurse II-XII nml as tested, normal mood/affect, sensation nml, No motor deficits, No sensory deficit Skin Exam: normal color, warm, dry, No rash Lymphatic Exam: No adenopathy SpO2 Interpretation: normal SpO2: 96 O2 Delivery: Room Air - Course Nursing assessment & vital signs reviewed: Yes EKG Interpreted by Me: RATE (NSR/R83/RBBB/Poor Rwave progression/Prolonged QTc/non-specific ST changes) - CT Exams Abdomen/Pelvis CT Interpretation: Discussed w/radiologist (Fluid distended stomach-small bowel loops w fluid leveling/ileus vs gastroenteritis) Ordered Tests: Active Orders 24 hr Category Date Time Status EKG-ER Only STAT Care 05/20/21 12:39 Completed IV Insertion STAT Care 05/20/21 12:39 Completed Clear Liquid Diet 05/20/21 Breakfast Active ABDOMEN AND PELVIS W/0 CONTRAS [CT] Stat Exams 05/20/21 13:45 Completed AMYLASE Stat Lab 05/20/21 13:00 Completed CBC W DIFF Stat Lab 05/20/21 13:00 Results CMP AM.LAB Lab 05/21/21 04:00 Ordered CMP Stat Lab 05/20/21 13:00 Completed LIPASE Stat Lab 05/20/21 13:00 Completed Manual Differential NC Stat Lab 05/20/21 13:00 Results Pathologist Review Stat Lab 05/20/21 13:00 Results TROPONIN Q3H Lab 05/20/21 13:00 Completed TROPONIN Q3H Lab 05/20/21 15:35 Completed TROPONIN Q3H Lab 05/20/21 18:26 Completed TROPONIN Q3H Lab 05/20/21 21:45 Ordered TROPONIN Q3H Lab 05/21/21 00:45 Ordered UA W/RFX UR CULTURE Stat Lab 05/20/21 12:39 Ordered Transfer Order Routine Transfer 05/20/21 Completed Medication Summary Generic Name Dose Route Start Last Admin Trade Name Freq PRN Reason Stop Dose Admin Hydromorphone HCl 0.5 mg 05/20/21 17:35 Hydromorphone 1 Mg/1ml Inj 1 Mg/Ml Syringe IV 05/25/21 17:34 Q4H PRN PRN PAIN Sodium Chloride 1,000 mls @ 100 mls/hr 05/20/21 17:45 05/20/21 20:04 Sodium Chloride 0.9% 1000 Ml IV 06/19/21 17:44 100 mls/hr .Q10H BRUCE Administration Ondansetron HCl 4 mg 05/20/21 17:35 Ondansetron Hcl 4 Mg/2 Ml Vial IV 06/19/21 17:34 Q6H PRN PRN NAUSEA/VOMITING Pantoprazole Sodium 40 mg 05/21/21 10:00 Pantoprazole 40 Mg Vial IV 06/20/21 09:59 Q24H10 BRUCE Discontinued Medications Generic Name Dose Route Start Last Admin Trade Name Freq PRN Reason Stop Dose Admin Fentanyl Citrate 25 mcg 05/20/21 13:15 05/20/21 13:21 Fentanyl Citrate 100 Mcg/2 Ml* Vial IV 05/20/21 13:16 25 mcg STAT ONE Administration Fentanyl Citrate Confirm 05/20/21 13:20 Fentanyl Citrate 100 Mcg/2 Ml* Vial Administered 05/20/21 13:21 Dose 100 mcg .ROUTE .STK-MED ONE Sodium Chloride 1,000 mls @ 999 mls/hr 05/20/21 14:32 05/20/21 15:57 Sodium Chloride 0.9% 1000 Ml IV 05/20/21 15:32 Infused .Q1H1M STA Infusion Sodium Chloride Confirm 05/20/21 14:51 Sodium Chloride 0.9% 1000 Ml Administered 05/20/21 14:52 Dose 1,000 mls @ ud .ROUTE .STK-MED ONE Sodium Chloride 1,000 mls @ 999 mls/hr 05/20/21 18:41 05/20/21 19:00 Sodium Chloride 0.9% 1000 Ml IV 05/20/21 19:41 999 mls/hr .Q1H1M STA Administration Ondansetron HCl 4 mg 05/20/21 13:15 05/20/21 13:21 Ondansetron Hcl 4 Mg/2 Ml Vial IV 05/20/21 13:16 4 mg STAT ONE Administration Ondansetron HCl Confirm 05/20/21 13:19 Ondansetron Hcl 4 Mg/2 Ml Vial Administered 05/20/21 13:20 Dose 4 mg .ROUTE .K-MED ONE Lab/Rad Data: Laboratory Result Diagrams 05/20/21 13:00 05/20/21 13:00 Laboratory Results 05/20/21 05/20/21 05/20/21 Range/Units 18:26 16:30 15:35 WBC (4.0-10.5) K/mm3 RBC (4.1-5.6) M/mm3 Hgb (12.5-18.0) gm/dl Hct (42-50) % MCV (78-100) fl MCH (26-32) pg MCHC (32-36) g/dl RDW (11.5-14.0) % Plt Count (150-450) K/mm3 MPV (7.5-11.0) fl Segmented Neutrophils (36.-66.) % Band Neutrophils (0.0-2.0) % Lymphocytes (Manual) (24-44) % Monocytes (Manual) (0.0-12.0) % Metamyelocytes % Toxic Granulation Dohle Bodies Platelet Estimate (NORMAL) RBC Morphology Anisocytosis Smear Path Review Sodium (137-145) mmol/L Potassium (3.5-5.1) mmol/L Chloride (98-107) mmol/L Carbon Dioxide (22-30) mmol/L Anion Gap (5-15) MEQ/L BUN (9-20) mg/dL Creatinine (0.66-1.25) mg/dL Estimated GFR ML/MIN Glucose (74-106) mg/dL Calcium (8.4-10.2) mg/dL Total Bilirubin (0.2-1.3) mg/dL AST (17-59) U/L ALT (0-50) U/L Alkaline Phosphatase (38-126) U/L Troponin I 0.031 0.027 (0.000-0.034) ng/mL Serum Total Protein (6.3-8.2) g/dL Albumin (3.5-5.0) g/dL Amylase (30-110) U/L Lipase (23-300) U/L Influenza Type A Ag NEGATIVE (NEGATIVE) Influenza Type B Ag NEGATIVE (NEGATIVE) RSV (PCR) NEGATIVE (Negative) SARS-CoV-2 (PCR) NEGATIVE (NEGATIVE) 05/20/21 05/20/21 05/20/21 Range/Units 13:00 13:00 13:00 WBC 12.6 H (4.0-10.5) K/mm3 RBC 5.21 (4.1-5.6) M/mm3 Hgb 14.8 (12.5-18.0) gm/dl Hct 47.7 (42-50) % MCV 91.6 (78-100) fl MCH 28.4 (26-32) pg MCHC 31.0 L (32-36) g/dl RDW 15.6 H (11.5-14.0) % Plt Count 270 (150-450) K/mm3 MPV 10.3 (7.5-11.0) fl Segmented Neutrophils 35 L (36.-66.) % Band Neutrophils 34 H (0.0-2.0) % Lymphocytes (Manual) 16 L (24-44) % Monocytes (Manual) 14 H (0.0-12.0) % Metamyelocytes 1 % Toxic Granulation 1+ Dohle Bodies 1+ Platelet Estimate NORMAL (NORMAL) RBC Morphology ABNORMAL Anisocytosis 1+ Smear Path Review Pending Sodium 136 L (137-145) mmol/L Potassium 4.8 (3.5-5.1) mmol/L Chloride 102 (98-107) mmol/L Carbon Dioxide 17 L (22-30) mmol/L Anion Gap 21.2 H (5-15) MEQ/L BUN 64 H (9-20) mg/dL Creatinine 2.53 H (0.66-1.25) mg/dL Estimated GFR 27.2 ML/MIN Glucose 144 H (74-106) mg/dL Calcium 8.4 (8.4-10.2) mg/dL Total Bilirubin 1.00 (0.2-1.3) mg/dL AST 16 L (17-59) U/L ALT 22 (0-50) U/L Alkaline Phosphatase 75 (38-126) U/L Troponin I 0.035 H (0.000-0.034) ng/mL Serum Total Protein 7.1 (6.3-8.2) g/dL Albumin 4.0 (3.5-5.0) g/dL Amylase < 30 L (30-110) U/L Lipase 24 (23-300) U/L Influenza Type A Ag (NEGATIVE) Influenza Type B Ag (NEGATIVE) RSV (PCR) (Negative) SARS-CoV-2 (PCR) (NEGATIVE) - Progress Progress Note: 05/20/21 16:[address] Norman 05/20/21 20:29 [id number] IV x1/4mg IV Zofran 1L NS bolus x2 Counseled pt/family regarding: lab results, diagnosis, rad results - Departure Departure Disposition: Observation Clinical Impression: Gastroenteritis, Prerenal azotemia Condition: Stable Critical Care Time: No
[2021-05-20 13:24] LABS: ALKALINE PHOSPHATASE 75 U/L (38-126); AMYLASE < 30 U/L (30-110); ANION GAP 21.2 MEQ/L (5-15); BLOOD UREA NITROGEN 64 mg/dL (9-20); CHLORIDE 102 mmol/L (98-107); Calcium 8.4 mg/dL (8.4-10.2); Carbon Dioxide 17 mmol/L (22-30); Creatinine 1 2.53 mg/dL (0.66-1.25); EST GLOMERULAR FILTRATION RATE 27.2 ML/MIN; Glucose 144 mg/dL (74-106); LIPASE 24 U/L (23-300); Potassium 4.8 mmol/L (3.5-5.1); SGOT/AST 16 U/L (17-59); SGPT/ALT 22 U/L (0-50); SODIUM 136 mmol/L (137-145); Total Protein 7.1 g/dL (6.3-8.2)
--- NOTE | 2021-05-20 14:17 | XRAY ---
Indication: Pain and diarrhea. Multiple contiguous axial images obtained through the abdomen and pelvis without contrast. Comparison: February 06, 2021. Lung bases again demonstrates minimal bibasilar dependent atelectasis and 9 mm inferior right middle lobe noncalcified nodule. No infiltrate or effusion. Heart not enlarged again with mitral valve replacement surgery. Stomach and jejunal/ileal bowel loops are now mildly fluid distended up to 3.2 cm in diameter with fluid leveling, ileus versus gastroenteritis. Tiny fluid left colic gutter presumed reactive. Normal appendix. Normal colonic bowel gas with again scattered descending and sigmoid diverticulosis. Urinary bladder is now markedly distended concerning for neurogenic bladder versus solid obstruction. No free air. Stable fatty liver. Remaining liver, gallbladder, pancreas, spleen, adrenal glands, kidneys, ureters, and bladder are unremarkable for noncontrast exam. There remains moderate aortoiliac calcifications without AAA. Stable small distal periaortic nodes. Osseous structures intact again with minimal/mild degenerative changes throughout the thoracolumbar spine. Impression: 1. New fluid distended stomach and small bowel loops with fluid leveling, ileus versus gastroenteritis. Tiny left colic fluid presumed reactive. 2. Again colonic diverticulosis, fatty liver, and chronic bony findings. 3. Stable indeterminant subcentimeter right middle lobe noncalcified nodule. Again recommend follow-up per Fleischner guidelines.
[2021-05-20] MEDS ORDERED: Sodium Chloride 0.9% 1000 ML 1,000 ML IV STA ×2 (14:32→18:41)
[2021-05-20] MEDS ORDERED: Sodium Chloride 0.9% 1000 ML 1,000 ML ONE (14:51)
[2021-05-20 14:54] LABS: BAND 34 % (0.0-2.0); Lymphocytes 16 % (24-44); Metamyelocyte 1 %; Monocyte 14 % (0.0-12.0); Neutrophils 35 % (36.-66.); Total Cells Counted 100
[2021-05-20 14:57] LABS: Dohle Bodies 1+; Toxic Granulation 1+
[2021-05-20 14:58] LABS: ANISOCYTOSIS 1+; Platelet Estimate NORMAL (NORMAL)
[2021-05-20 17:13] LABS: INFLUENZA A NEGATIVE (NEGATIVE); INFLUENZA B NEGATIVE (NEGATIVE); RESPIRATORY SYNCTIAL VIRUS NEGATIVE (Negative); SARS-CoV-2 Xpert Express NEGATIVE (NEGATIVE)
[2021-05-20] MEDS ORDERED: Zofran 4 MG/2 ML VIAL IV PRN (17:35)
[2021-05-20] MEDS: Sodium Chloride 0.9% 1000 ML 1,000 ML IV SCH (20:04)
[2021-05-20 22:38] LABS: Appearance CLEAR (CLEAR); Bilirubin NEGATIVE (NEGATIVE); Blood NEGATIVE Ery/ul (0-5); Glucose NEGATIVE (NEGATIVE); Ketones NEGATIVE (NEGATIVE); Leukocyte Esterase NEGATIVE (NEGATIVE); Mucus SLIGHT /HPF (NEGATIVE); Nitrite NEGATIVE (NEGATIVE); Protein,Urine Dip NEGATIVE (Negative); Specific Gravity 1.018 (1.005-1.025); Urobilinogen NEGATIVE mg/dL (0-1); WBC 0-2 /HPF (0-5)
[2021-05-20] MEDS ORDERED: Lopressor 50 MG PO ONE (23:00)
[2021-05-20] MEDS ORDERED: ZOCOR 20MG PO ONE (23:00)
[2021-05-20] MEDS ORDERED: NORVASC 5 MG PO ONE (23:00)
[2021-05-20] MEDS ORDERED: Neurontin 400 MG PO ONE (23:00)
--- NOTE | 2021-05-21 | PCM.HP ---
History of Present Illness - Chief Complaint Chief Complaint: c/o abdominal pain for 1-2 days History of Present Illness: is a 65 year old male.w infra-unbilical abdominal pain x 1 day. Pt is a very poor historian. Pain is rated 8/10, and he can not describe it. He has had diarrhea, nausea, and vomiting x1. Pt denies melena/hematochezia/hematemesis/fever/dysuria/hematuria/fever/chest pain/cough/coryza. Timing/Duration: yesterday Activities at Onset: rest Quality: other (Can not describe) Abdominal Pain Onset Location: periumbilical Pain Radiation: no radiation Severity of Pain-Max: severe Severity of Pain-Current: severe Modifying Factors: Improves With: nothing Associated Symptoms: diarrhea, loss of appetite, nausea, vomiting, weakness, No back, No chest pain, No diaphoresis, No fever/chills, No fatigue, No headache, No heartburn, No neck pain, No rash, No shortness of breath, No syncope, No testicular pain - Review of Systems Constitutional: No Fever, No Chills Eyes: No Symptoms Ears, Nose, & Throat: No Symptoms Respiratory: No Cough, No Short Of Breath Cardiac: No Chest Pain, No Edema, No Syncope Abdominal/Gastrointestinal: Abdominal Pain, No Nausea, No Vomiting, No Diarrhea Genitourinary Symptoms: No Dysuria Musculoskeletal: No Back Pain, No Neck Pain Skin: No Rash Neurological: No Dizziness, No Focal Weakness, No Sensory Changes Psychological: No Symptoms Endocrine: No Symptoms Hematologic/Lymphatic: No Symptoms Immunological/Allergic: No Symptoms Medications & Allergies Home Medications: Home Medication List Amlodipine Besylate 10 mg PO HS 02/06/21 [History Confirmed 05/20/21] Aspirin 81 mg PO DAILY 02/06/21 [History Confirmed 05/20/21] Atorvastatin Calcium 20 mg PO HS 02/06/21 [History Confirmed 05/20/21] Famotidine 20 mg PO BID 02/06/21 [History Confirmed 05/20/21] Gabapentin 400 mg PO BID 02/06/21 [History Confirmed 05/20/21] Hydrochlorothiazide 12.5 mg PO DAILY 02/06/21 [History Confirmed 05/20/21] Metoprolol Tartrate 50 mg [Lopressor 50 MG] 75 mg PO BID 02/06/21 [History Confirmed 05/20/21] lisinopriL [Lisinopril] 20 mg PO DAILY 02/06/21 [History Confirmed 05/20/21] Isosorbide Mononitrate [Isosorbide Mononitrate ER] 30 mg PO DAILY 05/20/21 [History Confirmed 05/20/21] Allergies/Adverse Reactions: Allergies Allergy/AdvReac Type Severity Reaction Status Date / Time naproxen Allergy Verified 05/20/21 20:19 - Past Medical History Past Medical History: Yes Neurological History: Other ENT History: No Pertinent History Cardiac History: Coronary Artery Disease, Hypertension Respiratory History: No Pertinent History Endocrine Medical History: No Pertinent History Musculoskelatal History: No Pertinent History GI Medical History: GERD History: No Pertinent History Pyscho-Social History: No Pertinent History Male Reproductive Disorders: No Pertinent History - Past Surgical History Past Surgical History: Yes Neuro Surgical History: No Pertinent History Cardiac History: CABG, Valve Replacement Respiratory Surgery: No Pertinent History GI Surgical History: No Pertinent History Genitourinary Surgical Hx: No Pertinent History Musculskeletal Surgical Hx: No Pertinent History Male Surgical History: No Pertinent History Other Surgical History: Triple Bypass and Valve Replacement 2009 - Social History Smoking Status: Former smoker How long have you smoked: 10 years Exposure to second hand smoke: No Alcohol: None Drug Use: none Significant Family History: no pertinent family hx - Physical Exam Vital Signs: Vital Signs - 24 hr Temp Pulse Resp BP Pulse Ox 05/20/21 23:53 93 L 05/20/21 22:55 99.8 F 100 H 16 103/51 93 L 05/20/21 20:31 98.3 F 89 20 107/60 89 L 05/20/21 20:30 96 05/20/21 17:17 97.5 F 85 20 96/64 98 05/20/21 16:37 97.5 F 86 20 125/62 98 05/20/21 15:47 97.1 F 77 20 111/65 98 05/20/21 14:47 97.1 F 88 20 95/62 98 05/20/21 13:46 91 H 16 100/70 98 05/20/21 12:38 97.1 F 81 24 130/77 96 General Appearance: no apparent distress, alert Neurologic Exam: alert, oriented x 3, cooperative, normal mood/affect, nml cerebellar function, nml station & gait, sensation nml, No motor deficits Eye Exam: PERRL/EOMI, eyes nml inspection Ears, Nose, Throat Exam: normal ENT inspection, TMs normal, pharynx normal, moist mucous membranes Neck Exam: normal inspection, non-tender, supple, full range of motion Respiratory Exam: normal breath sounds, lungs clear, No respiratory distress Cardiovascular Exam: regular rate/rhythm, normal heart sounds, normal peripheral pulses Gastrointestinal/Abdomen Exam: soft, normal bowel sounds, No tenderness, No mass Back Exam: normal inspection, normal range of motion, No CVA tenderness, No vertebral tenderness Extremity Exam: normal inspection, normal range of motion, pelvis stable Skin Exam: normal color, warm, dry, No rash Lymphatic Exam: No adenopathy Results - Labs Lab/Micro Results: Lab Results-Last 24 Hours 05/20/21 05/20/21 05/20/21 Range/Units 13:00 13:00 13:00 WBC 12.6 H (4.0-10.5) K/mm3 RBC 5.21 (4.1-5.6) M/mm3 Hgb 14.8 (12.5-18.0) gm/dl Hct 47.7 (42-50) % MCV 91.6 (78-100) fl MCH 28.4 (26-32) pg MCHC 31.0 L (32-36) g/dl RDW 15.6 H (11.5-14.0) % Plt Count 270 (150-450) K/mm3 MPV 10.3 (7.5-11.0) fl Segmented Neutrophils 35 L (36.-66.) % Band Neutrophils 34 H (0.0-2.0) % Lymphocytes (Manual) 16 L (24-44) % Monocytes (Manual) 14 H (0.0-12.0) % Metamyelocytes 1 % Toxic Granulation 1+ Dohle Bodies 1+ Platelet Estimate NORMAL (NORMAL) RBC Morphology ABNORMAL Anisocytosis 1+ Smear Path Review Pending Sodium 136 L (137-145) mmol/L Potassium 4.8 (3.5-5.1) mmol/L Chloride 102 (98-107) mmol/L Carbon Dioxide 17 L (22-30) mmol/L Anion Gap 21.2 H (5-15) MEQ/L BUN 64 H (9-20) mg/dL Creatinine 2.53 H (0.66-1.25) mg/dL Estimated GFR 27.2 ML/MIN Glucose 144 H (74-106) mg/dL Calcium 8.4 (8.4-10.2) mg/dL Total Bilirubin 1.00 (0.2-1.3) mg/dL AST 16 L (17-59) U/L ALT 22 (0-50) U/L Alkaline Phosphatase 75 (38-126) U/L Troponin I 0.035 H (0.000-0.034) ng/mL Serum Total Protein 7.1 (6.3-8.2) g/dL Albumin 4.0 (3.5-5.0) g/dL Amylase < 30 L (30-110) U/L Lipase 24 (23-300) U/L Urine Color (YELLOW) Urine Appearance (CLEAR) Urine pH (5-6) Ur Specific Schuyler (1.005-1.025) Urine Protein (Negative) Urine Ketones (NEGATIVE) Urine Blood (0-5) Ryan/ul Urine Nitrite (NEGATIVE) Urine Bilirubin (NEGATIVE) Urine Urobilinogen (0-1) mg/dL Ur Leukocyte Esterase (NEGATIVE) Urine WBC (Auto) (0-5) /HPF Urine RBC (Auto) (0-2) /HPF U Hyaline Cast (Auto) (0-2) /LPF Urine Bacteria (Auto) (NEGATIVE) /HPF Urine Mucus (Auto) (NEGATIVE) /HPF Urine Culture Reflexed (NO) Urine Glucose (NEGATIVE) mg/dL Influenza Type A Ag (NEGATIVE) Influenza Type B Ag (NEGATIVE) RSV (PCR) (Negative) SARS-CoV-2 (PCR) (NEGATIVE) 05/20/21 05/20/21 05/20/21 Range/Units 15:35 16:30 18:26 WBC (4.0-10.5) K/mm3 RBC (4.1-5.6) M/mm3 Hgb (12.5-18.0) gm/dl Hct (42-50) % MCV (78-100) fl MCH (26-32) pg MCHC (32-36) g/dl RDW (11.5-14.0) % Plt Count (150-450) K/mm3 MPV (7.5-11.0) fl Segmented Neutrophils (36.-66.) % Band Neutrophils (0.0-2.0) % Lymphocytes (Manual) (24-44) % Monocytes (Manual) (0.0-12.0) % Metamyelocytes % Toxic Granulation Dohle Bodies Platelet Estimate (NORMAL) RBC Morphology Anisocytosis Smear Path Review Sodium (137-145) mmol/L Potassium (3.5-5.1) mmol/L Chloride (98-107) mmol/L Carbon Dioxide (22-30) mmol/L Anion Gap (5-15) MEQ/L BUN (9-20) mg/dL Creatinine (0.66-1.25) mg/dL Estimated GFR ML/MIN Glucose (74-106) mg/dL Calcium (8.4-10.2) mg/dL Total Bilirubin (0.2-1.3) mg/dL AST (17-59) U/L ALT (0-50) U/L Alkaline Phosphatase (38-126) U/L Troponin I 0.027 0.031 (0.000-0.034) ng/mL Serum Total Protein (6.3-8.2) g/dL Albumin (3.5-5.0) g/dL Amylase (30-110) U/L Lipase (23-300) U/L Urine Color (YELLOW) Urine Appearance (CLEAR) Urine pH (5-6) Ur Specific Schuyler (1.005-1.025) Urine Protein (Negative) Urine Ketones (NEGATIVE) Urine Blood (0-5) Ryan/ul Urine Nitrite (NEGATIVE) Urine Bilirubin (NEGATIVE) Urine Urobilinogen (0-1) mg/dL Ur Leukocyte Esterase (NEGATIVE) Urine WBC (Auto) (0-5) /HPF Urine RBC (Auto) (0-2) /HPF U Hyaline Cast (Auto) (0-2) /LPF Urine Bacteria (Auto) (NEGATIVE) /HPF Urine Mucus (Auto) (NEGATIVE) /HPF Urine Culture Reflexed (NO) Urine Glucose (NEGATIVE) mg/dL Influenza Type A Ag NEGATIVE (NEGATIVE) Influenza Type B Ag NEGATIVE (NEGATIVE) RSV (PCR) NEGATIVE (Negative) SARS-CoV-2 (PCR) NEGATIVE (NEGATIVE) 05/20/21 05/20/21 Range/Units 22:00 22:00 WBC (4.0-10.5) K/mm3 RBC (4.1-5.6) M/mm3 Hgb (12.5-18.0) gm/dl Hct (42-50) % MCV (78-100) fl MCH (26-32) pg MCHC (32-36) g/dl RDW (11.5-14.0) % Plt Count (150-450) K/mm3 MPV (7.5-11.0) fl Segmented Neutrophils (36.-66.) % Band Neutrophils (0.0-2.0) % Lymphocytes (Manual) (24-44) % Monocytes (Manual) (0.0-12.0) % Metamyelocytes % Toxic Granulation Dohle Bodies Platelet Estimate (NORMAL) RBC Morphology Anisocytosis Smear Path Review Sodium (137-145) mmol/L Potassium (3.5-5.1) mmol/L Chloride (98-107) mmol/L Carbon Dioxide (22-30) mmol/L Anion Gap (5-15) MEQ/L BUN (9-20) mg/dL Creatinine (0.66-1.25) mg/dL Estimated GFR ML/MIN Glucose (74-106) mg/dL Calcium (8.4-10.2) mg/dL Total Bilirubin (0.2-1.3) mg/dL AST (17-59) U/L ALT (0-50) U/L Alkaline Phosphatase (38-126) U/L Troponin I 0.026 (0.000-0.034) ng/mL Serum Total Protein (6.3-8.2) g/dL Albumin (3.5-5.0) g/dL Amylase (30-110) U/L Lipase (23-300) U/L Urine Color YELLOW (YELLOW) Urine Appearance CLEAR (CLEAR) Urine pH 5.0 (5-6) Ur Specific Schuyler 1.018 (1.005-1.025) Urine Protein NEGATIVE (Negative) Urine Ketones NEGATIVE (NEGATIVE) Urine Blood NEGATIVE (0-5) Ryan/ul Urine Nitrite NEGATIVE (NEGATIVE) Urine Bilirubin NEGATIVE (NEGATIVE) Urine Urobilinogen NEGATIVE (0-1) mg/dL Ur Leukocyte Esterase NEGATIVE (NEGATIVE) Urine WBC (Auto) 0-2 (0-5) /HPF Urine RBC (Auto) NONE (0-2) /HPF U Hyaline Cast (Auto) 3-5 (0-2) /LPF Urine Bacteria (Auto) NONE (NEGATIVE) /HPF Urine Mucus (Auto) SLIGHT (NEGATIVE) /HPF Urine Culture Reflexed NO (NO) Urine Glucose NEGATIVE (NEGATIVE) mg/dL Influenza Type A Ag (NEGATIVE) Influenza Type B Ag (NEGATIVE) RSV (PCR) (Negative) SARS-CoV-2 (PCR) (NEGATIVE) - Radiology Impressions Radiology Exams & Impressions: Radiology Procedures Category Date Time Status ABDOMEN AND PELVIS W/0 CONTRAS [CT] Stat Exams 05/20/21 13:45 Completed - Other Procedures and Tests Respiratory Therapy 05/20/21 23:31 Oxygen Nasal Cannula 2 lpm Assessment/Plan (1) Abdominal pain Current Visit: Yes Status: Acute Qualifiers: Abdominal location: periumbilical Qualified Code(s): R10.33 - Periumbilical pain Assessment & Plan: Chief Complaint Diagnosis gastroenteritis Allergies Allergy/AdvReac Type Severity Reaction Status Date / Time naproxen Allergy Verified 05/20/21 20:19 Vital Signs (Last 24 hours) Temp Pulse Resp BP Pulse Ox 05/20/21 23:53 93 L 05/20/21 22:55 99.8 F 100 H 16 103/51 93 L 05/20/21 20:31 98.3 F 89 20 107/60 89 L 05/20/21 20:30 96 05/20/21 17:17 97.5 F 85 20 96/64 98 05/20/21 16:37 97.5 F 86 20 125/62 98 05/20/21 15:47 97.1 F 77 20 111/65 98 05/20/21 14:47 97.1 F 88 20 95/62 98 05/20/21 13:46 91 H 16 100/70 98 05/20/21 12:38 97.1 F 81 24 130/77 96 Home Medications Medication Instructions Recorded Confirmed Last Taken Type Isosorbide Mononitrate [Isosorbide 30 mg PO DAILY 05/20/21 05/20/21 05/19/21 09:00 History Mononitrate ER] Current Medications Generic Name Dose Route Start Last Admin Trade Name Freq PRN Reason Stop Dose Admin Amlodipine Besylate 10 mg 05/20/21 23:00 Amlodipine Besylate 5 Mg Tablet PO 05/20/21 23:01 ONCE ONE Gabapentin 400 mg 05/20/21 23:00 05/20/21 22:58 Gabapentin 400 Mg Capsule PO 05/20/21 23:01 400 mg ONCE ONE Administration Hydromorphone HCl 0.5 mg 05/20/21 17:35 Hydromorphone 1 Mg/1ml Inj 1 Mg/Ml Syringe IV 05/25/21 17:34 Q4H PRN PRN PAIN Sodium Chloride 1,000 mls @ 100 mls/hr 05/20/21 17:45 05/20/21 20:04 Sodium Chloride 0.9% 1000 Ml IV 06/19/21 17:44 100 mls/hr .Q10H BRUCE Administration Metoprolol Tartrate 75 mg 05/20/21 23:00 05/20/21 22:57 Metoprolol Tartrate 50 Mg Tablet PO 05/20/21 23:01 75 mg ONCE ONE Administration Ondansetron HCl 4 mg 05/20/21 17:35 Ondansetron Hcl 4 Mg/2 Ml Vial IV 06/19/21 17:34 Q6H PRN PRN NAUSEA/VOMITING Pantoprazole Sodium 40 mg 05/21/21 10:00 Pantoprazole 40 Mg Vial IV 06/20/21 09:59 Q24H10 BRUCE Simvastatin 20 mg 05/20/21 23:00 05/20/21 22:58 Simvastatin 20 Mg Tablet PO 05/20/21 23:01 20 mg ONCE ONE Administration Discontinued Medications Generic Name Dose Route Start Last Admin Trade Name Freq PRN Reason Stop Dose Admin Fentanyl Citrate 25 mcg 05/20/21 13:15 05/20/21 13:21 Fentanyl Citrate 100 Mcg/2 Ml* Vial IV 05/20/21 13:16 25 mcg STAT ONE Administration Fentanyl Citrate Confirm 05/20/21 13:20 Fentanyl Citrate 100 Mcg/2 Ml* Vial Administered 05/20/21 13:21 Dose 100 mcg .ROUTE .STK-MED ONE Sodium Chloride 1,000 mls @ 999 mls/hr 05/20/21 14:32 05/20/21 15:57 Sodium Chloride 0.9% 1000 Ml IV 05/20/21 15:32 Infused .Q1H1M STA Infusion Sodium Chloride Confirm 05/20/21 14:51 Sodium Chloride 0.9% 1000 Ml Administered 05/20/21 14:52 Dose 1,000 mls @ ud .ROUTE .STK-MED ONE Sodium Chloride 1,000 mls @ 999 mls/hr 05/20/21 18:41 11/29/21 19:00 Sodium Chloride 0.9% 1000 Ml IV 05/20/21 19:41 999 mls/hr .Q1H1M STA Administration Ondansetron HCl 4 mg 05/20/21 13:15 05/20/21 13:21 Ondansetron Hcl 4 Mg/2 Ml Vial IV 05/20/21 13:16 4 mg STAT ONE Administration Ondansetron HCl Confirm 05/20/21 13:19 Ondansetron Hcl 4 Mg/2 Ml Vial Administered 05/20/21 13:20 Dose 4 mg .ROUTE .STK-MED ONE Intake & Output (Last 24 hours) 05/18/21 05/19/21 05/20/21 05/21/21 11:59 11:59 11:59 11:59 Weight 88.4 kg Laboratory Results (Last 24 hours) 05/20/21 05/20/21 05/20/21 22:00 22:00 18:26 WBC RBC Hgb Hct MCV MCH MCHC RDW Plt Count MPV Segmented Neutrophils Band Neutrophils Lymphocytes (Manual) Monocytes (Manual) Metamyelocytes Toxic Granulation Dohle Bodies Platelet Estimate RBC Morphology Anisocytosis Sodium Potassium Chloride Carbon Dioxide Anion Gap BUN Creatinine Estimated GFR Glucose Calcium Total Bilirubin AST ALT Alkaline Phosphatase Troponin I 0.026 0.031 Serum Total Protein Albumin Amylase Lipase Urine Color YELLOW Urine Appearance CLEAR Urine pH 5.0 Ur Specific Schuyler 1.018 Urine Protein NEGATIVE Urine Ketones NEGATIVE Urine Blood NEGATIVE Urine Nitrite NEGATIVE Urine Bilirubin NEGATIVE Urine Urobilinogen NEGATIVE Ur Leukocyte Esterase NEGATIVE Urine WBC (Auto) 0-2 Urine RBC (Auto) NONE U Hyaline Cast (Auto) 3-5 Urine Bacteria (Auto) NONE Urine Mucus (Auto) SLIGHT Urine Culture Reflexed NO Urine Glucose NEGATIVE Influenza Type A Ag Influenza Type B Ag RSV (PCR) SARS-CoV-2 (PCR) 05/20/21 05/20/21 05/20/21 16:30 15:35 13:00 WBC RBC Hgb Hct MCV MCH MCHC RDW Plt Count MPV Segmented Neutrophils Band Neutrophils Lymphocytes (Manual) Monocytes (Manual) Metamyelocytes Toxic Granulation Dohle Bodies Platelet Estimate RBC Morphology Anisocytosis Sodium Potassium Chloride Carbon Dioxide Anion Gap BUN Creatinine Estimated GFR Glucose Calcium Total Bilirubin AST ALT Alkaline Phosphatase Troponin I 0.027 0.035 H Serum Total Protein Albumin Amylase Lipase Urine Color Urine Appearance Urine pH Ur Specific Schuyler Urine Protein Urine Ketones Urine Blood Urine Nitrite Urine Bilirubin Urine Urobilinogen Ur Leukocyte Esterase Urine WBC (Auto) Urine RBC (Auto) U Hyaline Cast (Auto) Urine Bacteria (Auto) Urine Mucus (Auto) Urine Culture Reflexed Urine Glucose Influenza Type A Ag NEGATIVE Influenza Type B Ag NEGATIVE RSV (PCR) NEGATIVE SARS-CoV-2 (PCR) NEGATIVE 05/20/21 05/20/21 13:00 13:00 WBC 12.6 H RBC 5.21 Hgb 14.8 Hct 47.7 MCV 91.6 MCH 28.4 MCHC 31.0 L RDW 15.6 H Plt Count 270 MPV 10.3 Segmented Neutrophils 35 L Band Neutrophils 34 H Lymphocytes (Manual) 16 L Monocytes (Manual) 14 H Metamyelocytes 1 Toxic Granulation 1+ Dohle Bodies 1+ Platelet Estimate NORMAL RBC Morphology ABNORMAL Anisocytosis 1+ Sodium 136 L Potassium 4.8 Chloride 102 Carbon Dioxide 17 L Anion Gap 21.2 H BUN 64 H Creatinine 2.53 H Estimated GFR 27.2 Glucose 144 H Calcium 8.4 Total Bilirubin 1.00 AST 16 L ALT 22 Alkaline Phosphatase 75 Troponin I Serum Total Protein 7.1 Albumin 4.0 Amylase < 30 L Lipase 24 Urine Color Urine Appearance Urine pH Ur Specific Schuyler Urine Protein Urine Ketones Urine Blood Urine Nitrite Urine Bilirubin Urine Urobilinogen Ur Leukocyte Esterase Urine WBC (Auto) Urine RBC (Auto) U Hyaline Cast (Auto) Urine Bacteria (Auto) Urine Mucus (Auto) Urine Culture Reflexed Urine Glucose Influenza Type A Ag Influenza Type B Ag RSV (PCR) SARS-CoV-2 (PCR) Orders (Last 24 hours) Category Date Time Status Bedrest ROUTINE Activity 05/20/21 17:36 Active Code Status Order ROUTINE Care 05/20/21 17:35 Active EKG-ER Only STAT Care 05/20/21 12:39 Completed IV Care Q6H Care 05/20/21 17:35 Active IV Insertion STAT Care 05/20/21 12:[address] in Observation ROUTINE Care 05/20/21 17:35 Active Shoes Salesperson/Discharge Plan ROUTINE Cons 05/20/21 20:54 Active Clear Liquid Diet 05/20/21 Breakfast Active ABDOMEN AND PELVIS W/0 CONTRAS [CT] Stat Exams 05/20/21 13:45 Completed AMYLASE Stat Lab 05/20/21 13:00 Completed CBC W DIFF Stat Lab 05/20/21 13:00 Results CMP AM.LAB Lab 05/21/21 04:00 Ordered CMP Stat Lab 05/20/21 13:00 Completed LIPASE Stat Lab 05/20/21 13:00 Completed Manual Differential NC Stat Lab 05/20/21 13:00 Results Pathologist Review Stat Lab 05/20/21 13:00 Results TROPONIN Q3H Lab 05/20/21 13:00 Completed TROPONIN Q3H Lab 05/20/21 15:35 Completed TROPONIN Q3H Lab 05/20/21 18:26 Completed TROPONIN Q3H Lab 05/20/21 22:00 Completed TROPONIN Q3H Lab 05/21/21 00:45 Ordered UA W/RFX UR CULTURE Stat Lab 05/20/21 22:00 Completed Amlodipine Besylate 5 mg [Norvasc 5 mg] Med 05/20/21 23:00 Once 10 mg PO ONCE ONE Fentanyl Citrate 100 Mcg/2 ml* [Sublimaze 100 Mcg/2 ml* Med 05/20/21 13:20 Discontinued ] 100 mcg .ROUTE .STK-MED ONE Fentanyl Citrate 100 Mcg/2 ml* [Sublimaze 100 Mcg/2 ml* Med 05/20/21 13:15 Discontinued ] 25 mcg IV STAT ONE Gabapentin 400 mg [Neurontin 400 MG] Med 05/20/21 23:00 Once 400 mg PO ONCE ONE Hydromorphone 1 mg/1Ml Inj [Hydromorphone 1 mg/ml Med 05/20/21 17:35 Ordered Injection] 0.5 mg IV Q4H PRN PRN Metoprolol Tartrate 50 mg [Lopressor 50 MG] Med 05/20/21 23:00 Once 75 mg PO ONCE ONE NaCl 0.9% 1000 ml [Sodium Chloride 0.9% 1000 ML] 1,000 Med 05/20/21 14:51 Discontinued ml .ROUTE UD NaCl 0.9% 1000 ml [Sodium Chloride 0.9% 1000 ML] 1,000 Med 05/20/21 17:45 Ordered ml IV 100 mls/hr NaCl 0.9% 1000 ml [Sodium Chloride 0.9% 1000 ML] 1,000 Med 05/20/21 14:32 Discontinued ml IV 999 mls/hr NaCl 0.9% 1000 ml [Sodium Chloride 0.9% 1000 ML] 1,000 Med 05/20/21 18:41 D iscontinued ml IV 999 mls/hr Ondansetron HCl 4 mg/2 ml [Zofran 4 MG/2 ML VIAL] Med 05/20/21 13:19 Discontinued 4 mg .ROUTE .STK-MED ONE Ondansetron HCl 4 mg/2 ml [Zofran 4 MG/2 ML VIAL] Med 05/20/21 17:35 Ordered 4 mg IV Q6H PRN PRN Ondansetron HCl 4 mg/2 ml [Zofran 4 MG/2 ML VIAL] Med 05/20/21 13:15 Discontinued 4 mg IV STAT ONE Pantoprazole 40 mg [Protonix 40 mg IV] Med 05/21/21 10:00 Ordered 40 mg IV Q24H10 Simvastatin 20Mg [Zocor 20Mg] Med 05/20/21 23:00 Once 20 mg PO ONCE ONE Oxygen Nasal Cannula 2 lpm RT 05/20/21 23:31 Active Pulse Oximetry .spot check RT 05/20/21 23:31 Active Transfer Order Routine Transfer 05/20/21 Completed Patient Care Notes (Last 24 hours) 05/20/21 22:43 Nursing Note by Blanca Barone This nurse contacted Dr. Norman and discussed home medications and informed him that patient was hypotensive in ER, most recent BP 107/60. Order received to continue norvasc, lipitor, gabapentin, and metoprolol tartrate. Initialized on 05/20/21 22:43 - END OF NOTE Code(s): R10.9 - UNSPECIFIED ABDOMINAL PAIN (2) Gastroenteritis Current Visit: Yes Status: Acute Code(s): K52.9 - NONINFECTIVE GASTROENTERITIS AND COLITIS, UNSPECIFIED (3) Acute renal injury Current Visit: No Status: Acute Code(s): N17.9 - ACUTE KIDNEY FAILURE, UNSPECIFIED
[2021-05-21] MEDS: TYLENOL 325 MG PO PRN (01:06)
[2021-05-21] MEDS: Sodium Chloride 0.9% 1000 ML 1,000 ML IV SCH ×3 (04:50→21:33)
[2021-05-21 06:23] LABS: Hemoglobin 11.8 gm/dl (12.5-18.0); Mean Cell Volume 93.6 fl (78-100); Mean Corpuscular Hemoglobin 29.1 pg (26-32); Mean Corpuscular Hgb Concent. 31.1 g/dl (32-36); Mean Platelet Volume 10.8 fl (7.5-11.0); Platelet Count 232 K/mm3 (150-450); Red Blood Count 4.06 M/mm3 (4.1-5.6); Red Cell Distribution Width 15.4 % (11.5-14.0); White Blood Count 8.2 K/mm3 (4.0-10.5)
[2021-05-21 07:17] LABS: ALBUMIN 2.7 g/dL (3.5-5.0); ANION GAP 13.1 MEQ/L (5-15); BILIRUBIN,TOTAL 0.5 mg/dL (0.2-1.3); Calcium 7.1 mg/dL (8.4-10.2); Creatinine 1 1.95 mg/dL (0.66-1.25); EST GLOMERULAR FILTRATION RATE 36.8 ML/MIN; Potassium 4.5 mmol/L (3.5-5.1); Total Protein 5.4 g/dL (6.3-8.2)
--- NOTE | 2021-05-21 08:10 | PCM.NOTE ---
Date and Time: 05/21/21808 Subjective Assessment: lethargic - Review of Systems Constitutional: Lethargy, Weakness, No Fever, No Chills Eyes: No Symptoms Ears, Nose, & Throat: No Symptoms Respiratory: No Cough, No Short Of Breath Cardiac: No Chest Pain, No Edema, No Syncope Abdominal/Gastrointestinal: No Abdominal Pain, No Nausea, No Vomiting, No Diarrhea Genitourinary Symptoms: No Dysuria Musculoskeletal: No Back Pain, No Neck Pain Skin: No Rash Neurological: No Dizziness, No Focal Weakness, No Sensory Changes Psychological: No Symptoms Endocrine: No Symptoms Hematologic/Lymphatic: No Symptoms Immunological/Allergic: No Symptoms Objective Exam General Appearance: no apparent distress, alert Neurologic Exam: alert, oriented x 3, cooperative, sensation nml, No motor deficits Skin Exam: normal color, warm, dry Eye Exam: PERRL, EOMI, eyes nml inspection Ears, Nose, Throat Exam: normal ENT inspection, pharynx normal, moist mucous membranes Neck Exam: normal inspection, non-tender, supple, full range of motion Respiratory Exam: normal breath sounds, lungs clear, No respiratory distress Cardiovascular Exam: regular rate/rhythm, normal heart sounds Gastrointestinal/Abdomen Exam: soft, No tenderness, No mass Extremity Exam: normal inspection, normal range of motion Back Exam: normal inspection, normal range of motion, No CVA tenderness, No vertebral tenderness Male Genitalia Exam: deferred Rectal Exam: deferred OBJECTIVE DATA Vital Signs: Vital Signs - 24 hr Temp Pulse Resp BP Pulse Ox 05/21/21 08:00 98.9 F 67 16 101/51 05/21/21 07:43 93 L 05/21/21 06:30 65 99/57 05/21/21 06:01 91 L 05/21/21 06:00 98.9 F 60 16 80/42 90 L 05/21/21 02:04 98.7 F 05/21/21 00:54 100.7 F 84 16 90/55 94 L 05/20/21 23:53 93 L 05/20/21 22:55 99.8 F 100 H 16 103/51 93 L 05/20/21 20:31 98.3 F 89 20 107/60 89 L 05/20/21 20:30 96 05/20/21 17:17 97.5 F 85 20 96/64 98 05/20/21 16:37 97.5 F 86 20 125/62 98 05/20/21 15:47 97.1 F 77 20 111/65 98 05/20/21 14:47 97.1 F 88 20 95/62 98 05/20/21 13:46 91 H 16 100/70 98 05/20/21 12:38 97.1 F 81 24 130/77 96 Pain Assessment - Last Documented Pain Intensity 1 Intake and Output: Intake & Output 05/18/21 05/19/21 05/20/21 05/21/21 11:59 11:59 11:59 11:59 Intake Total 2044 Output Total 650 Balance 1394 Weight 89.8 kg Lab Results: Lab Results-Last 24 Hours 05/20/21 05/20/21 05/20/21 Range/Units 13:00 13:00 13:00 WBC 12.6 H (4.0-10.5) K/mm3 RBC 5.21 (4.1-5.6) M/mm3 Hgb 14.8 (12.5-18.0) gm/dl Hct 47.7 (42-50) % MCV 91.6 (78-100) fl MCH 28.4 (26-32) pg MCHC 31.0 L (32-36) g/dl RDW 15.6 H (11.5-14.0) % Plt Count 270 (150-450) K/mm3 MPV 10.3 (7.5-11.0) fl Segmented Neutrophils 35 L (36.-66.) % Band Neutrophils 34 H (0.0-2.0) % Lymphocytes (Manual) 16 L (24-44) % Monocytes (Manual) 14 H (0.0-12.0) % Metamyelocytes 1 % Toxic Granulation 1+ Dohle Bodies 1+ Platelet Estimate NORMAL (NORMAL) RBC Morphology ABNORMAL Anisocytosis 1+ Smear Path Review Pending Sodium 136 L (137-145) mmol/L Potassium 4.8 (3.5-5.1) mmol/L Chloride 102 (98-107) mmol/L Carbon Dioxide 17 L (22-30) mmol/L Anion Gap 21.2 H (5-15) MEQ/L BUN 64 H (9-20) mg/dL Creatinine 2.53 H (0.66-1.25) mg/dL Estimated GFR 27.2 ML/MIN Glucose 144 H (74-106) mg/dL Calcium 8.4 (8.4-10.2) mg/dL Total Bilirubin 1.00 (0.2-1.3) mg/dL AST 16 L (17-59) U/L ALT 22 (0-50) U/L Alkaline Phosphatase 75 (38-126) U/L Troponin I 0.035 H (0.000-0.034) ng/mL Serum Total Protein 7.1 (6.3-8.2) g/dL Albumin 4.0 (3.5-5.0) g/dL Amylase < 30 L (30-110) U/L Lipase 24 (23-300) U/L Urine Color (YELLOW) Urine Appearance (CLEAR) Urine pH (5-6) Ur Specific [place] (1.005-1.025) Urine Protein (Negative) Urine Ketones (NEGATIVE) Urine Blood (0-5) Ryan/ul Urine Nitrite (NEGATIVE) Urine Bilirubin (NEGATIVE) Urine Urobilinogen (0-1) mg/dL Ur Leukocyte Esterase (NEGATIVE) Urine WBC (Auto) (0-5) /HPF Urine RBC (Auto) (0-2) /HPF U Hyaline Cast (Auto) (0-2) /LPF Urine Bacteria (Auto) (NEGATIVE) /HPF Urine Mucus (Auto) (NEGATIVE) /HPF Urine Culture Reflexed (NO) Urine Glucose (NEGATIVE) mg/dL Influenza Type A Ag (NEGATIVE) Influenza Type B Ag (NEGATIVE) RSV (PCR) (Negative) SARS-CoV-2 (PCR) (NEGATIVE) 05/20/21 05/20/21 05/20/21 Range/Units 15:35 16:30 18:26 WBC (4.0-10.5) K/mm3 RBC (4.1-5.6) M/mm3 Hgb (12.5-18.0) gm/dl Hct (42-50) % MCV (78-100) fl MCH (26-32) pg MCHC (32-36) g/dl RDW (11.5-14.0) % Plt Count (150-450) K/mm3 MPV (7.5-11.0) fl Segmented Neutrophils (36.-66.) % Band Neutrophils (0.0-2.0) % Lymphocytes (Manual) (24-44) % Monocytes (Manual) (0.0-12.0) % Metamyelocytes % Toxic Granulation Dohle Bodies Platelet Estimate (NORMAL) RBC Morphology Anisocytosis Smear Path Review Sodium (137-145) mmol/L Potassium (3.5-5.1) mmol/L Chloride (98-107) mmol/L Carbon Dioxide (22-30) mmol/L Anion Gap (5-15) MEQ/L BUN (9-20) mg/dL Creatinine (0.66-1.25) mg/dL Estimated GFR ML/MIN Glucose (74-106) mg/dL Calcium (8.4-10.2) mg/dL Total Bilirubin (0.2-1.3) mg/dL AST (17-59) U/L ALT (0-50) U/L Alkaline Phosphatase (38-126) U/L Troponin I 0.027 0.031 (0.000-0.034) ng/mL Serum Total Protein (6.3-8.2) g/dL Albumin (3.5-5.0) g/dL Amylase (30-110) U/L Lipase (23-300) U/L Urine Color (YELLOW) Urine Appearance (CLEAR) Urine pH (5-6) Ur Specific [place] (1.005-1.025) Urine Protein (Negative) Urine Ketones (NEGATIVE) Urine Blood (0-5) Ryan/ul Urine Nitrite (NEGATIVE) Urine Bilirubin (NEGATIVE) Urine Urobilinogen (0-1) mg/dL Ur Leukocyte Esterase (NEGATIVE) Urine WBC (Auto) (0-5) /HPF Urine RBC (Auto) (0-2) /HPF U Hyaline Cast (Auto) (0-2) /LPF Urine Bacteria (Auto) (NEGATIVE) /HPF Urine Mucus (Auto) (NEGATIVE) /HPF Urine Culture Reflexed (NO) Urine Glucose (NEGATIVE) mg/dL Influenza Type A Ag NEGATIVE (NEGATIVE) Influenza Type B Ag NEGATIVE (NEGATIVE) RSV (PCR) NEGATIVE (Negative) SARS-CoV-2 (PCR) NEGATIVE (NEGATIVE) 05/20/21 05/20/21 05/21/21 Range/Units 22:00 22:00 00:45 WBC (4.0-10.5) K/mm3 RBC (4.1-5.6) M/mm3 Hgb (12.5-18.0) gm/dl Hct (42-50) % MCV (78-100) fl MCH (26-32) pg MCHC (32-36) g/dl RDW (11.5-14.0) % Plt Count (150-450) K/mm3 MPV (7.5-11.0) fl Segmented Neutrophils (36.-66.) % Band Neutrophils (0.0-2.0) % Lymphocytes (Manual) (24-44) % Monocytes (Manual) (0.0-12.0) % Metamyelocytes % Toxic Granulation Dohle Bodies Platelet Estimate (NORMAL) RBC Morphology Anisocytosis Smear Path Review Sodium (137-145) mmol/L Potassium (3.5-5.1) mmol/L Chloride (98-107) mmol/L Carbon Dioxide (22-30) mmol/L Anion Gap (5-15) MEQ/L BUN (9-20) mg/dL Creatinine (0.66-1.25) mg/dL Estimated GFR ML/MIN Glucose (74-106) mg/dL Calcium (8.4-10.2) mg/dL Total Bilirubin (0.2-1.3) mg/dL AST (17-59) U/L ALT (0-50) U/L Alkaline Phosphatase (38-126) U/L Troponin I 0.026 0.028 (0.000-0.034) ng/mL Serum Total Protein (6.3-8.2) g/dL Albumin (3.5-5.0) g/dL Amylase (30-110) U/L Lipase (23-300) U/L Urine Color YELLOW (YELLOW) Urine Appearance CLEAR (CLEAR) Urine pH 5.0 (5-6) Ur Specific [place] 1.018 (1.005-1.025) Urine Protein NEGATIVE (Negative) Urine Ketones NEGATIVE (NEGATIVE) Urine Blood NEGATIVE (0-5) Ryan/ul Urine Nitrite NEGATIVE (NEGATIVE) Urine Bilirubin NEGATIVE (NEGATIVE) Urine Urobilinogen NEGATIVE (0-1) mg/dL Ur Leukocyte Esterase NEGATIVE (NEGATIVE) Urine WBC (Auto) 0-2 (0-5) /HPF Urine RBC (Auto) NONE (0-2) /HPF U Hyaline Cast (Auto) 3-5 (0-2) /LPF Urine Bacteria (Auto) NONE (NEGATIVE) /HPF Urine Mucus (Auto) SLIGHT (NEGATIVE) /HPF Urine Culture Reflexed NO (NO) Urine Glucose NEGATIVE (NEGATIVE) mg/dL Influenza Type A Ag (NEGATIVE) Influenza Type B Ag (NEGATIVE) RSV (PCR) (Negative) SARS-CoV-2 (PCR) (NEGATIVE) 05/21/21 05/21/21 Range/Units 04:37 04:37 WBC 8.2 (4.0-10.5) K/mm3 RBC 4.06 L (4.1-5.6) M/mm3 Hgb 11.8 L D (12.5-18.0) gm/dl Hct 38.0 L (42-50) % MCV 93.6 (78-100) fl MCH 29.1 (26-32) pg MCHC 31.1 L (32-36) g/dl RDW 15.4 H (11.5-14.0) % Plt Count 232 (150-450) K/mm3 MPV 10.8 (7.5-11.0) fl Segmented Neutrophils (36.-66.) % Band Neutrophils (0.0-2.0) % Lymphocytes (Manual) (24-44) % Monocytes (Manual) (0.0-12.0) % Metamyelocytes % Toxic Granulation Dohle Bodies Platelet Estimate (NORMAL) RBC Morphology Anisocytosis Smear Path Review Sodium 134 L (137-145) mmol/L Potassium 4.5 (3.5-5.1) mmol/L Chloride 110 H (98-107) mmol/L Carbon Dioxide 16 L* (22-30) mmol/L Anion Gap 13.1 (5-15) MEQ/L BUN 60 H (9-20) mg/dL Creatinine 1.95 H (0.66-1.25) mg/dL Estimated GFR 36.8 ML/MIN Glucose 108 H (74-106) mg/dL Calcium 7.1 L D (8.4-10.2) mg/dL Total Bilirubin 0.50 (0.2-1.3) mg/dL AST 11 L (17-59) U/L ALT 13 (0-50) U/L Alkaline Phosphatase 51 (38-126) U/L Troponin I (0.000-0.034) ng/mL Serum Total Protein 5.4 L (6.3-8.2) g/dL Albumin 2.7 L (3.5-5.0) g/dL Amylase (30-110) U/L Lipase (23-300) U/L Urine Color (YELLOW) Urine Appearance (CLEAR) Urine pH (5-6) Ur Specific [place] (1.005-1.025) Urine Protein (Negative) Urine Ketones (NEGATIVE) Urine Blood (0-5) Ryan/ul Urine Nitrite (NEGATIVE) Urine Bilirubin (NEGATIVE) Urine Urobilinogen (0-1) mg/dL Ur Leukocyte Esterase (NEGATIVE) Urine WBC (Auto) (0-5) /HPF Urine RBC (Auto) (0-2) /HPF U Hyaline Cast (Auto) (0-2) /LPF Urine Bacteria (Auto) (NEGATIVE) /HPF Urine Mucus (Auto) (NEGATIVE) /HPF Urine Culture Reflexed (NO) Urine Glucose (NEGATIVE) mg/dL Influenza Type A Ag (NEGATIVE) Influenza Type B Ag (NEGATIVE) RSV (PCR) (Negative) SARS-CoV-2 (PCR) (NEGATIVE) Radiology Exams: Radiology Procedures Category Date Time Status ABDOMEN AND PELVIS W/0 CONTRAS [CT] Stat Exams 05/20/21 13:45 Completed Assessment/Plan (1) Abdominal pain Current Visit: Yes Status: Acute Qualifiers: Abdominal location: periumbilical Qualified Code(s): R10.33 - Periumbilical pain Code(s): R10.9 - UNSPECIFIED ABDOMINAL PAIN (2) Gastroenteritis Current Visit: Yes Status: Acute Code(s): K52.9 - NONINFECTIVE GASTROENTERITIS AND COLITIS, UNSPECIFIED (3) Acute renal injury Current Visit: Yes Status: Acute Code(s): N17.9 - ACUTE KIDNEY FAILURE, UNSPECIFIED
[2021-05-21] MEDS: PROTONIX 40 MG IV IV SCH (09:13)
[2021-05-21 09:34] LABS: A-aADO2 76; ABG HEMOGLOBIN 12.9; ABG POTASSIUM 4.1 (3.5-5.1); ABG SITE LEFT RADIAL; ALLEN TEST OK? YES; ARTERIAL BLD GAS O2 SATURATION 97.1 % (95-100); ARTERIAL BLOOD GAS BASE EXCESS -8.9 (-2.0-2.0); ARTERIAL BLOOD GAS FIO2 28 %; ARTERIAL BLOOD GAS PCO2 35 mmHg (35-45); ARTERIAL BLOOD GAS PO2 80 mmHg (75-100); ARTERIAL BLOOD GAS pH 7.29 (7.35-7.45); CARBOXYHEMOGLOBIN 1.5 % THgb (0.0-6.9); HCO3- 16.8 (22-28); Lactic Acid 0.5 (0.4-2.0); Methhemoglobin 1.7 % (1.4-1.5)
[2021-05-21 10:39] LABS: ANISOCYTOSIS 1+; ATYPICAL LYMPHS 1 %; Eosinophil 2 % (0.00-3.0); Lymphocytes 33 % (24-44); Monocyte 11 % (0.0-12.0); Neutrophils 53 % (36.-66.); Platelet Estimate NORMAL (NORMAL); Total Cells Counted 100
[2021-05-21] MEDS: ROCEPHIN 1 Gm-D5w 50 ml Bag** 1 G/50 ML IVPB IV SCH (13:06)
[2021-05-21] MEDS: hydroDIURIL 25 MG PO SCH (17:05)
[2021-05-21] MEDS: Imdur 30 MG PO SCH (17:05)
[2021-05-21] MEDS: ECOTRIN 81 MG PO SCH (17:05)
[2021-05-21] MEDS: Zestril 20 MG PO SCH (17:06)
[2021-05-21] MEDS: Neurontin 400 MG PO SCH (21:34)
[2021-05-21] MEDS: Lopressor 50 MG PO SCH (21:34)
[2021-05-21] MEDS: ZOCOR 20MG PO SCH (21:35)
[2021-05-21] MEDS: Pepcid 20 MG PO SCH (21:35)
[2021-05-21] MEDS: Lopressor 25MG Tab PO SCH (21:35)
[2021-05-21] MEDS ORDERED: NON-FORMULARY ITEM (Amlodipine Besylate [Amlodipine Besylate] 10 MG Tablet) PO SCH (22:00)
[2021-05-21] MEDS ORDERED: NON-FORMULARY ITEM (Atorvastatin Calcium [Atorvastatin Calcium] 10 MG Tablet) PO SCH (22:00)
[2021-05-21] MEDS: NORVASC 5 MG PO SCH (23:47)
[2021-05-22] MEDS: Sodium Chloride 0.9% 1000 ML 1,000 ML IV SCH ×3 (05:35→21:59)
[2021-05-22] MEDS: ROCEPHIN 1 Gm-D5w 50 ml Bag** 1 G/50 ML IVPB IV SCH (09:47)
[2021-05-22] MEDS: TYLENOL 325 MG PO PRN (09:47)
[2021-05-22] MEDS: hydroDIURIL 25 MG PO SCH (09:48)
[2021-05-22] MEDS: Neurontin 400 MG PO SCH ×2 (09:48→22:40)
[2021-05-22] MEDS: Zestril 20 MG PO SCH (09:48)
[2021-05-22] MEDS: Imdur 30 MG PO SCH (09:48)
[2021-05-22] MEDS: Pepcid 20 MG PO SCH ×2 (09:48→21:58)
[2021-05-22] MEDS: Lopressor 50 MG PO SCH ×2 (09:48→22:40)
[2021-05-22] MEDS: ECOTRIN 81 MG PO SCH (09:48)
[2021-05-22] MEDS: PROTONIX 40 MG IV IV SCH (09:49)
[2021-05-22] MEDS: Lopressor 25MG Tab PO SCH ×2 (09:49→21:58)
[2021-05-22 09:55] LABS: Absolute Neutrophil Ct (ANC) 4.28 (1.4-6.9); BASOPHIL % 0.1 % (0.0-0.4); Basophil (Absolute #) 0.01 (0-0.4); Eosinophil % 6.6 % (0.00-5.0); Eosinophil (Absolute #) 0.48 (0-0.5); Hematocrit 37.2 % (42-50); Hemoglobin 11.4 gm/dl (12.5-18.0); Lymphocyte (Absolute #) 1.65 (1.0-4.6); Lymphocytes % 22.7 % (24.0-44.0); Mean Cell Volume 94.4 fl (78-100); Mean Corpuscular Hemoglobin 28.9 pg (26-32); Mean Corpuscular Hgb Concent. 30.6 g/dl (32-36); Mean Platelet Volume 10.5 fl (7.5-11.0); Monocyte (Absolute #) 0.86 (0.0-1.3); Monocytes % 11.8 % (0.0-12.0); Neutrophil % 58.8 % (36.0-66.0); Platelet Count 211 K/mm3 (150-450); Red Blood Count 3.94 M/mm3 (4.1-5.6); White Blood Count 7.3 K/mm3 (4.0-10.5)
[2021-05-22] MEDS ORDERED: NON-FORMULARY ITEM (Aspirin [Aspirin] 81 MG Tablet) PO SCH (10:00)
[2021-05-22] MEDS ORDERED: NON-FORMULARY ITEM (Hydrochlorothiazide [Hydrochlorothiazide] 12.5 MG Capsule) PO SCH (10:00)
[2021-05-22 10:08] LABS: ALBUMIN 2.7 g/dL (3.5-5.0); ANION GAP 9.4 MEQ/L (5-15); BILIRUBIN,TOTAL 0.3 mg/dL (0.2-1.3); Calcium 7.3 mg/dL (8.4-10.2); Creatinine 1 1.48 mg/dL (0.66-1.25); EST GLOMERULAR FILTRATION RATE 50.5 ML/MIN; Potassium 4.7 mmol/L (3.5-5.1); Total Protein 5.4 g/dL (6.3-8.2)
[2021-05-22] MEDS: NORVASC 5 MG PO SCH (21:59)
[2021-05-22] MEDS: ZOCOR 20MG PO SCH (21:59)
[2021-05-23] MEDS: Hydromorphone 1 mg/ml Injection IV PRN (01:23)
[2021-05-23 06:07] LABS: Hematocrit 38.2 % (42-50); Hemoglobin 11.6 gm/dl (12.5-18.0); Mean Cell Volume 93.6 fl (78-100); Mean Corpuscular Hemoglobin 28.4 pg (26-32); Mean Corpuscular Hgb Concent. 30.4 g/dl (32-36); Mean Platelet Volume 10.6 fl (7.5-11.0); Platelet Count 239 K/mm3 (150-450); Red Blood Count 4.08 M/mm3 (4.1-5.6); Red Cell Distribution Width 14.9 % (11.5-14.0); White Blood Count 9.9 K/mm3 (4.0-10.5)
[2021-05-23 06:22] LABS: ANION GAP 10.4 MEQ/L (5-15); BILIRUBIN,TOTAL 0.3 mg/dL (0.2-1.3); Calcium 7.8 mg/dL (8.4-10.2); Creatinine 1 1.28 mg/dL (0.66-1.25); EST GLOMERULAR FILTRATION RATE 59.8 ML/MIN; Potassium 4.6 mmol/L (3.5-5.1); Total Protein 5.7 g/dL (6.3-8.2)
[2021-05-23] MEDS: DUONEB 0.5-3 MG/3 ml Neb IH SCH ×6 (07:05→22:55)
[2021-05-23] MEDS ORDERED: Lasix 20 MG/2 ML IV ONE (07:12)
[2021-05-23 08:09] LABS: BAND 2 % (0.0-2.0); Eosinophil 1 % (0.00-3.0); Lymphocytes 20 % (24-44); Monocyte 5 % (0.0-12.0); Neutrophils 72 % (36.-66.); Platelet Estimate NORMAL (NORMAL); Total Cells Counted 100
--- NOTE | 2021-05-23 08:48 | XRAY ---
Indication: Short of breath. Comparison: September 21, 2018. Portable chest demonstrates new diffuse bilateral hazy airspace disease, right greater than left without consolidation/large effusion. Heart not enlarged again with cardiac valve replacement surgery. Bony thorax intact.
[2021-05-23] MEDS: Sodium Chloride 0.9% 1000 ML 1,000 ML IV SCH (09:01)
[2021-05-23] MEDS: Lopressor 50 MG PO SCH ×2 (09:17→22:05)
[2021-05-23] MEDS: Imdur 30 MG PO SCH (09:17)
[2021-05-23] MEDS: PROTONIX 40 MG IV IV SCH (09:17)
[2021-05-23] MEDS: Lopressor 25MG Tab PO SCH ×2 (09:17→22:05)
[2021-05-23] MEDS: Pepcid 20 MG PO SCH ×2 (09:17→22:04)
[2021-05-23] MEDS: ECOTRIN 81 MG PO SCH (09:17)
[2021-05-23] MEDS: Neurontin 400 MG PO SCH ×2 (09:18→22:05)
[2021-05-23] MEDS: hydroDIURIL 25 MG PO SCH (09:18)
[2021-05-23] MEDS: ROCEPHIN 1 Gm-D5w 50 ml Bag** 1 G/50 ML IVPB IV SCH (09:18)
[2021-05-23] MEDS: Zestril 20 MG PO SCH (09:19)
--- NOTE | 2021-05-23 10:40 | XRAY ---
Indication: Abdomen pain. Constipation. Bloating. Multiple contiguous axial images obtained through the abdomen and pelvis without contrast. Comparison: May 20, 2021. Lung bases demonstrates new posterior bibasilar consolidating/nonconsolidating airspace disease and new small bibasilar effusions. Aspiration pneumonia is of primary concern. Stable 9 mm right middle lobe noncalcified nodule. Heart not enlarged. Noncontrasted stomach unremarkable. Noncontrasted bowel loops again demonstrates mild fluid distended small bowel loops with fluid leveling similar to previous exam, again ileus versus enteritis. Normal air-filled appendix. No free fluid/air. Normal colonic bowel gas throughout. Stable descending/sigmoid diverticulosis, enlarged prostate gland, and mild diffuse fatty liver. Remaining liver, gallbladder, pancreas, spleen, adrenal glands, kidneys, ureters, and bladder are unremarkable for noncontrast exam. Stable scattered aortoiliac calcifications including both renal arteries. Stable small distal periaortic lymph nodes, none pathologically enlarged. Impression: 1. New posterior bibasilar consolidating/nonconsolidating airspace disease with new bibasilar effusions. Rule out aspiration pneumonia. 2. Grossly stable mild fluid distended small bowel loops with fluid leveling, again ileus versus enteritis. 3. Again incidental colonic diverticulosis, fatty liver, and small indeterminant right middle lobe noncalcified nodule.
[2021-05-23] MEDS: Zithromax 500 MG/ 250 ML NaCl Premix 500 MG/250 ML IVPB IV SCH (15:57)
--- NOTE | 2021-05-23 17:57 | XRAY ---
Indication: Pain. Two-dimensional right upper quadrant abdominal sonogram performed. Comparison: None Diffuse fatty echogenic liver without focal solid/cystic mass or ascites. Gallbladder normally distended with minimal sludge in the dependent portion. No gallstones, wall thickening, or pericholecystic fluid. Common bile duct measures 2.8 mm. Remaining visualized pancreas and right kidney are sonographically unremarkable. Right kidney measures 9.3 cm in length. Impression: 1. Gallbladder sludge and fatty liver. 2. Remaining right upper quadrant sonogram negative.
--- NOTE | 2021-05-23 18:56 | PCM.NOTE ---
05/22/2021 Subjective Assessment: abdominal pain and shortness of breath - Review of Systems Constitutional: No Fever, No Chills Eyes: No Symptoms Ears, Nose, & Throat: No Symptoms Respiratory: Short Of Breath, No Cough Cardiac: No Chest Pain, No Edema, No Syncope Abdominal/Gastrointestinal: Abdominal Pain, No Nausea, No Vomiting, No Diarrhea Genitourinary Symptoms: No Dysuria Musculoskeletal: No Back Pain, No Neck Pain Skin: No Rash Neurological: No Dizziness, No Focal Weakness, No Sensory Changes Psychological: No Symptoms Endocrine: No Symptoms Hematologic/Lymphatic: No Symptoms Immunological/Allergic: No Symptoms Objective Exam General Appearance: mild distress, alert Neurologic Exam: alert, oriented x 3, cooperative, normal mood/affect, nml cerebellar function, sensation nml, No motor deficits Skin Exam: normal color, warm, dry Eye Exam: PERRL, EOMI, eyes nml inspection Ears, Nose, Throat Exam: normal ENT inspection, pharynx normal, moist mucous membranes Neck Exam: normal inspection, non-tender, supple, full range of motion Respiratory Exam: diminished breath sounds, crackles/rales, rhonchi, wheezing, No respiratory distress Cardiovascular Exam: regular rate/rhythm, normal heart sounds Gastrointestinal/Abdomen Exam: soft, No tenderness, No mass Extremity Exam: normal inspection, normal range of motion Back Exam: normal inspection, normal range of motion, No CVA tenderness, No vertebral tenderness Male Genitalia Exam: deferred Rectal Exam: deferred OBJECTIVE DATA Vital Signs: Vital Signs - 24 hr Temp Pulse Resp BP Pulse Ox 05/23/21 15:56 98.9 F 74 16 138/70 96 05/23/21 14:15 78 24 90 L 05/23/21 12:00 100.2 F 76 18 150/75 94 L 05/23/21 10:46 79 22 91 L 05/23/21 07:55 100.4 F 90 26 H 186/86 92 L 05/23/21 07:51 92 L 05/23/21 07:08 93 H 24 87 L 05/23/21 03:59 100.7 F 76 22 136/64 92 L 05/23/21 00:00 100.2 F 71 18 147/67 93 L 05/22/21 20:00 96.9 F 78 18 180/84 95 Pain Assessment - Last Documented Pain Intensity 3 Pain Scale Used FLACC Intake and Output: Intake & Output 11/30/21 12/01/21 12/02/21 12/03/21 11:59 11:59 11:59 11:59 Intake Total 3116 4462 5569 Output Total 501 5879 0885 300 Balance 7445 1912 -8410 -300 Weight 89.8 kg Lab Results: Lab Results-Last 24 Hours 05/23/21 05/23/21 Range/Units 05:51 05:51 WBC 9.9 (4.0-10.5) K/mm3 RBC 4.08 L (4.1-5.6) M/mm3 Hgb 11.6 L (12.5-18.0) gm/dl Hct 38.2 L (42-50) % MCV 93.6 (78-100) fl MCH 28.4 (26-32) pg MCHC 30.4 L (32-36) g/dl RDW 14.9 H (11.5-14.0) % Plt Count 239 (150-450) K/mm3 MPV 10.6 (7.5-11.0) fl Segmented Neutrophils 72 H (36.-66.) % Band Neutrophils 2 (0.0-2.0) % Lymphocytes (Manual) 20 L (24-44) % Monocytes (Manual) 5 (0.0-12.0) % Eosinophils (Manual) 1 (0.00-3.0) % Platelet Estimate NORMAL (NORMAL) RBC Morphology NORMAL Sodium 142 (137-145) mmol/L Potassium 4.6 (3.5-5.1) mmol/L Chloride 113 H (98-107) mmol/L Carbon Dioxide 23 (22-30) mmol/L Anion Gap 10.4 (5-15) MEQ/L BUN 19 (9-20) mg/dL Creatinine 1.28 H (0.66-1.25) mg/dL Estimated GFR 59.8 ML/MIN Glucose 124 H (74-106) mg/dL Calcium 7.8 L (8.4-10.2) mg/dL Total Bilirubin 0.30 (0.2-1.3) mg/dL AST 14 L (17-59) U/L ALT 12 (0-50) U/L Alkaline Phosphatase 68 (38-126) U/L Serum Total Protein 5.7 L (6.3-8.2) g/dL Albumin 3.0 L (3.5-5.0) g/dL Radiology Exams: Radiology Procedures Category Date Time Status ABDOMEN AND PELVIS W/0 CONTRAS [CT] Urgent Exams 05/23/21 09:28 Completed ABDOMINAL-LIMITED [US] Urgent Exams 05/23/21 16:45 Completed CHEST 1 VIEW (PORTABLE) Stat Exams 05/23/21 07:15 Completed ECHO W/2D AND DOPPLER [US] Routine Exams 05/23/21 15:24 Taken MODIFIED BARIUM SWALLOW (RAD) [MODIFIED BARIUM SWALLOW Exams 05/24/21 13:00 Ordered EXAM] Routine Assessment/Plan (1) Abdominal pain Current Visit: Yes Status: Acute Qualifiers: Abdominal location: periumbilical Qualified Code(s): R10.33 - Periumbilical pain Code(s): R10.9 - UNSPECIFIED ABDOMINAL PAIN (2) Gastroenteritis Current Visit: Yes Status: Acute Code(s): K52.9 - NONINFECTIVE GASTROENTERITIS AND COLITIS, UNSPECIFIED (3) Acute renal injury Current Visit: Yes Status: Acute Code(s): N17.9 - ACUTE KIDNEY FAILURE, UNSPECIFIED (4) Hypoxia Current Visit: Yes Status: Acute Code(s): R09.02 - HYPOXEMIA
--- NOTE | 2021-05-23 19:00 | PCM.NOTE ---
Date and Time: 05/23/211855 Subjective Assessment: had hypoxic episode last night - Review of Systems Constitutional: No Fever, No Chills Eyes: No Symptoms Ears, Nose, & Throat: No Symptoms Respiratory: Orthopnea, Short Of Breath, No Cough Cardiac: No Chest Pain, No Edema, No Syncope Abdominal/Gastrointestinal: No Abdominal Pain, No Nausea, No Vomiting, No Diarrhea Genitourinary Symptoms: No Dysuria Musculoskeletal: No Back Pain, No Neck Pain Skin: No Rash Neurological: No Dizziness, No Focal Weakness, No Sensory Changes Psychological: No Symptoms Endocrine: No Symptoms Hematologic/Lymphatic: No Symptoms Immunological/Allergic: No Symptoms Objective Exam General Appearance: no apparent distress, alert Neurologic Exam: alert, oriented x 3, cooperative, normal mood/affect, nml cerebellar function, sensation nml, No motor deficits Skin Exam: normal color, warm, dry Eye Exam: PERRL, EOMI, eyes nml inspection Ears, Nose, Throat Exam: normal ENT inspection, pharynx normal, moist mucous membranes Neck Exam: normal inspection, non-tender, supple, full range of motion Respiratory Exam: diminished breath sounds, crackles/rales, rhonchi, wheezing, No respiratory distress Cardiovascular Exam: regular rate/rhythm, normal heart sounds Gastrointestinal/Abdomen Exam: soft, No tenderness, No mass Extremity Exam: normal inspection, normal range of motion Back Exam: normal inspection, normal range of motion, No CVA tenderness, No vertebral tenderness Male Genitalia Exam: deferred Rectal Exam: deferred OBJECTIVE DATA Vital Signs: Vital Signs - 24 hr Temp Pulse Resp BP Pulse Ox 05/23/21 15:56 98.9 F 74 16 138/70 96 05/23/21 14:15 78 24 90 L 05/23/21 12:00 100.2 F 76 18 150/75 94 L 05/23/21 10:46 79 22 91 L 05/23/21 07:55 100.4 F 90 26 H 186/86 92 L 05/23/21 07:51 92 L 05/23/21 07:08 93 H 24 87 L 05/23/21 03:59 100.7 F 76 22 136/64 92 L 05/23/21 00:00 100.2 F 71 18 147/67 93 L 05/22/21 20:00 96.9 F 78 18 180/84 95 Pain Assessment - Last Documented Pain Intensity 3 Pain Scale Used FLACC Intake and Output: Intake & Output 05/21/21 05/22/21 05/23/21 05/24/21 11:59 11:59 11:59 11:59 Intake Total 1535 8281 2422 Output Total 129 5294 9304 300 Balance 1394 2015 -2617 -300 Weight 89.8 kg Lab Results: Lab Results-Last 24 Hours 05/23/21 05/23/21 Range/Units 05:51 05:51 WBC 9.9 (4.0-10.5) K/mm3 RBC 4.08 L (4.1-5.6) M/mm3 Hgb 11.6 L (12.5-18.0) gm/dl Hct 38.2 L (42-50) % MCV 93.6 (78-100) fl MCH 28.4 (26-32) pg MCHC 30.4 L (32-36) g/dl RDW 14.9 H (11.5-14.0) % Plt Count 239 (150-450) K/mm3 MPV 10.6 (7.5-11.0) fl Segmented Neutrophils 72 H (36.-66.) % Band Neutrophils 2 (0.0-2.0) % Lymphocytes (Manual) 20 L (24-44) % Monocytes (Manual) 5 (0.0-12.0) % Eosinophils (Manual) 1 (0.00-3.0) % Platelet Estimate NORMAL (NORMAL) RBC Morphology NORMAL Sodium 142 (137-145) mmol/L Potassium 4.6 (3.5-5.1) mmol/L Chloride 113 H (98-107) mmol/L Carbon Dioxide 23 (22-30) mmol/L Anion Gap 10.4 (5-15) MEQ/L BUN 19 (9-20) mg/dL Creatinine 1.28 H (0.66-1.25) mg/dL Estimated GFR 59.8 ML/MIN Glucose 124 H (74-106) mg/dL Calcium 7.8 L (8.4-10.2) mg/dL Total Bilirubin 0.30 (0.2-1.3) mg/dL AST 14 L (17-59) U/L ALT 12 (0-50) U/L Alkaline Phosphatase 68 (38-126) U/L Serum Total Protein 5.7 L (6.3-8.2) g/dL Albumin 3.0 L (3.5-5.0) g/dL Radiology Exams: Radiology Procedures Category Date Time Status ABDOMEN AND PELVIS W/0 CONTRAS [CT] Urgent Exams 05/23/21 09:28 Completed ABDOMINAL-LIMITED [US] Urgent Exams 05/23/21 16:45 Completed CHEST 1 VIEW (PORTABLE) Stat Exams 05/23/21 07:15 Completed ECHO W/2D AND DOPPLER [US] Routine Exams 05/23/21 15:24 Taken MODIFIED BARIUM SWALLOW (RAD) [MODIFIED BARIUM SWALLOW Exams 05/24/21 13:00 Ordered EXAM] Routine US/ABDOMINAL-LIMITED Indication: Pain. Two-dimensional right upper quadrant abdominal sonogram performed. Comparison: None Diffuse fatty echogenic liver without focal solid/cystic mass or ascites. Gallbladder normally distended with minimal sludge in the dependent portion. No gallstones, wall thickening, or pericholecystic fluid. Common bile duct measures 2.8 mm. Remaining visualized pancreas and right kidney are sonographically unremarkable. Right kidney measures 9.3 cm in length. Impression: 1. Gallbladder sludge and fatty liver. 2. Remaining right upper quadrant sonogram negative. Assessment/Plan (1) Abdominal pain Current Visit: Yes Status: Acute Qualifiers: Abdominal location: periumbilical Qualified Code(s): R10.33 - Periumbilical pain Code(s): R10.9 - UNSPECIFIED ABDOMINAL PAIN (2) Gastroenteritis Current Visit: Yes Status: Acute Code(s): K52.9 - NONINFECTIVE GASTROENTERITIS AND COLITIS, UNSPECIFIED (3) Acute renal injury Current Visit: Yes Status: Acute Code(s): N17.9 - ACUTE KIDNEY FAILURE, UNSPECIFIED (4) Hypoxia Current Visit: Yes Status: Acute Code(s): R09.02 - HYPOXEMIA (5) Pneumonia Current Visit: Yes Status: Acute Qualifiers: Pneumonia type: aspiration pneumonia Laterality: bilateral Lung location: lower lobe of lung Assessment & Plan: Chief Complaint Diagnosis PNEUMONIA, GASTROENTERITIS Allergies Allergy/AdvReac Type Severity Reaction Status Date / Time naproxen Allergy Verified 05/20/21 20:19 Vital Signs (Last 24 hours) Temp Pulse Resp BP Pulse Ox 05/23/21 15:56 98.9 F 74 16 138/70 96 05/23/21 14:15 78 24 90 L 05/23/21 12:00 100.2 F 76 18 150/75 94 L 05/23/21 10:46 79 22 91 L 05/23/21 07:55 100.4 F 90 26 H 186/86 92 L 05/23/21 07:51 92 L 05/23/21 07:08 93 H 24 87 L 05/23/21 03:59 100.7 F 76 22 136/64 92 L 05/23/21 00:00 100.2 F 71 18 147/67 93 L 05/22/21 20:00 96.9 F 78 18 180/84 95 Home Medications Medication Instructions Recorded Confirmed Last Taken Type Isosorbide Mononitrate [Isosorbide 30 mg PO DAILY 05/20/21 05/20/21 05/19/21 09:00 History Mononitrate ER] Current Medications Generic Name Dose Route Start Last Admin Trade Name Freq PRN Reason Stop Dose Admin Acetaminophen 650 mg 05/21/21 00:45 05/22/21 09:47 Acetaminophen 325 Mg Tablet PO 06/20/21 00:44 650 mg Q4H PRN PRN Administration PAIN, FEVER, HEADACHE Albuterol/Ipratropium 3 ml 05/23/21 07:00 05/23/21 14:14 Ipratropium/Albuterol Sulfate 3 Ml Ampul.Neb IH 06/22/21 06:59 3 ml Q4HRT BRUCE Administration Amlodipine Besylate 10 mg 05/21/21 22:00 05/22/21 21:59 Amlodipine Besylate 5 Mg Tablet PO 06/20/21 21:59 10 mg HS BRUCE Administration Aspirin 81 mg 05/21/21 16:00 05/23/21 09:17 Aspirin 81 Mg Tablet.Ec PO 06/20/21 15:59 81 mg DAILY BRUCE Administration Famotidine 20 mg 05/21/21 22:00 05/23/21 09:17 Famotidine 20 Mg Tablet PO 06/20/21 21:59 20 mg BID BRUCE Administration Gabapentin 400 mg 05/21/21 22:00 05/23/21 09:18 Gabapentin 400 Mg Capsule PO 06/20/21 21:59 400 mg BID BRUCE Administration Hydrochlorothiazide 12.5 mg 05/21/21 16:00 05/23/21 09:18 Hydrochlorothiazide 25 Mg Tablet PO 06/20/21 15:59 12.5 mg DAILY RBUCE Administration Hydromorphone HCl 0.5 mg 05/20/21 17:35 05/23/21 01:23 Hydromorphone 1 Mg/1ml Inj 1 Mg/Ml Syringe IV 05/25/21 17:34 0.5 mg Q4H PRN PRN Administration PAIN Sodium Chloride 1,000 mls @ 25 mls/hr 05/20/21 17:45 05/23/21 09:01 Sodium Chloride 0.9% 1000 Ml IV 06/19/21 17:44 25 mls/hr .Q24H BRUCE Administration Ceftriaxone Sodium/Dextrose 1 g in 50 mls @ 100 mls/hr 05/21/21 13:00 05/23/21 09:18 Rocephin 1 Gm-D5w 50 Ml Bag IV 05/25/21 12:59 100 mls/hr Q24H10 BRUCE Administration Azithromycin 500 mg in 250 mls @ 250 mls/hr 05/23/21 15:00 05/23/21 15:57 Zithromax 500 Mg/ 250 Ml Nacl Premix IV 06/22/21 14:59 250 mls/hr Q24H10 BRUCE Administration Isosorbide Mononitrate 30 mg 05/21/21 16:00 05/23/21 09:17 Isosorbide Mononitrate 30 Mg Tab PO 06/20/21 15:59 30 mg DAILY BRUCE Administration Lisinopril 20 mg 05/21/21 16:00 05/23/21 09:19 Lisinopril 20 Mg Tablet PO 06/20/21 15:59 20 mg DAILY BRUCE Administration Metoprolol Tartrate 50 mg 05/21/21 22:00 05/23/21 09:17 Metoprolol Tartrate 50 Mg Tablet PO 06/20/21 21:59 50 mg BID BRUCE Administration Metoprolol Tartrate 25 mg 05/21/21 22:00 05/23/21 09:17 Metoprolol Tartrate 25 Mg Tab PO 06/20/21 21:59 25 mg BID BRUCE Administration Ondansetron HCl 4 mg 05/20/21 17:35 Ondansetron Hcl 4 Mg/2 Ml Vial IV 06/19/21 17:34 Q6H PRN PRN NAUSEA/VOMITING Pantoprazole Sodium 40 mg 05/21/21 10:00 05/23/21 09:17 Pantoprazole 40 Mg Vial IV 06/20/21 09:59 40 mg Q24H10 BRUCE Administration Simvastatin 20 mg 05/21/21 22:00 05/22/21 21:59 Simvastatin 20 Mg Tablet PO 06/20/21 21:59 20 mg HS BRUCE Administration Discontinued Medications Generic Name Dose Route Start Last Admin Trade Name Gregorio PRN Reason Stop Dose Admin Amlodipine Besylate 10 mg 05/20/21 23:00 05/21/21 00:56 Amlodipine Besylate 5 Mg Tablet PO 05/20/21 23:01 Not Given ONCE ONE Fentanyl Citrate 25 mcg 05/20/21 13:15 05/20/21 13:21 Fentanyl Citrate 100 Mcg/2 Ml* Vial IV 05/20/21 13:16 25 mcg STAT ONE Administration Fentanyl Citrate Confirm 05/20/21 13:20 Fentanyl Citrate 100 Mcg/2 Ml* Vial Administered 05/20/21 13:21 Dose 100 mcg .ROUTE .STK-MED ONE Furosemide 20 mg 05/23/21 07:12 05/23/21 07:35 Furosemide 20 Mg/Vial IV 05/23/21 07:13 20 mg ONCE ONE Administration Gabapentin 400 mg 05/20/21 23:00 05/20/21 22:58 Gabapentin 400 Mg Capsule PO 05/20/21 23:01 400 mg ONCE ONE Administration Sodium Chloride 1,000 mls @ 999 mls/hr 05/20/21 14:32 05/20/21 15:57 Sodium Chloride 0.9% 1000 Ml IV 05/20/21 15:32 Infused .Q1H1M STA Infusion Sodium Chloride Confirm 05/20/21 14:51 Sodium Chloride 0.9% 1000 Ml Administered 05/20/21 14:52 Dose 1,000 mls @ ud .ROUTE .STK-MED ONE Sodium Chloride 1,000 mls @ 999 mls/hr 05/20/21 18:41 05/20/21 19:00 Sodium Chloride 0.9% 1000 Ml IV 05/20/21 19:41 999 mls/hr .Q1H1M STA Administration Metoprolol Tartrate 75 mg 05/20/21 23:00 05/20/21 22:57 Metoprolol Tartrate 50 Mg Tablet PO 05/20/21 23:01 75 mg ONCE ONE Administration Ondansetron HCl 4 mg 05/20/21 13:15 05/20/21 13:21 Ondansetron Hcl 4 Mg/2 Ml Vial IV 05/20/21 13:16 4 mg STAT ONE Administration Ondansetron HCl Confirm 05/20/21 13:19 Ondansetron Hcl 4 Mg/2 Ml Vial Administered 05/20/21 13:20 Dose 4 mg .ROUTE .STK-MED ONE Simvastatin 20 mg 05/20/21 23:00 05/20/21 22:58 Simvastatin 20 Mg Tablet PO 05/20/21 23:01 20 mg ONCE ONE Administration Intake & Output (Last 24 hours) 05/21/21 05/22/21 05/23/21 05/24/21 11:59 11:59 11:59 11:59 Intake Total 6963 9802 5440 Output Total 650 1547 3074 300 Balance 1394 2015 -2617 -300 Weight 89.8 kg Microbiology Results (Last 24 hours) 05/23/21 16:45 Stool Salmonella/Shigella Screen - Pending 05/23/21 16:45 Stool Stool Culture Result 1 - Final Not Reportable 05/23/21 16:45 Stool Stool Culture Result 2 - Final Not Reportable 05/23/21 16:45 Stool Stool Culture Result 3 - Final Not Reportable 05/23/21 16:45 Stool Stool Culture Result 4 - Final Not Reportable 05/23/21 16:45 Stool Stool Culture Organism Suscept - Final Not Reportable 05/23/21 16:45 Stool Campylobacter Culture - Pending 05/23/21 16:45 Stool Campylobacter Result 1 - Final Not Reportable 05/23/21 16:45 Stool Campylobacter Result 2 - Final Not Reportable 05/23/21 16:45 Stool Campylobactor Result 3 - Final Not Reportable 05/23/21 16:45 Stool Campylobacter Result 4 - Final Not Reportable 05/23/21 16:45 Stool Campylobactor Susceptibility - Final Not Reportable 05/23/21 16:45 Stool Escherichia coli Shiga Toxins EIA - Pending 05/23/21 16:45 Stool Ova and Parasite Concentrate Exam - Pending 05/23/21 16:45 Stool Ova and Parasite Result 1 - Pending 05/23/21 16:45 Stool Ova and Parasite Result 2 - Pending 05/23/21 16:45 Stool Ova and Parasite Result 3 - Pending 05/23/21 16:45 Stool Ova and Parasite Result 4 - Pending 05/23/21 16:45 Stool Antimicrobic Susceptibility - Pending 05/23/21 16:45 Stool Giardia lamblia (PCR) - Pending 05/23/21 16:45 Stool Cryptosporidium Antigen - Pending 05/21/21 09:28 Blood Blood Culture Gram Stain - Pending 05/21/21 09:28 Blood Blood Culture - Preliminary NO GROWTH TO DATE 05/21/21 09:40 Blood Blood Culture Gram Stain - Pending 05/21/21 09:40 Blood Blood Culture - Preliminary NO GROWTH TO DATE 05/21/21 Unknown Clean Catch Midstream Urine Culture - Final NO GROWTH Laboratory Results (Last 24 hours) 05/23/21 05/23/21 05:51 05:51 WBC 9.9 RBC 4.08 L Hgb 11.6 L Hct 38.2 L MCV 93.6 MCH 28.4 MCHC 30.4 L RDW 14.9 H Plt Count 239 MPV 10.6 Segmented Neutrophils 72 H Band Neutrophils 2 Lymphocytes (Manual) 20 L Monocytes (Manual) 5 Eosinophils (Manual) 1 Platelet Estimate NORMAL RBC Morphology NORMAL Sodium 142 Potassium 4.6 Chloride 113 H Carbon Dioxide 23 Anion Gap 10.4 BUN 19 Creatinine 1.28 H Estimated GFR 59.8 Glucose 124 H Calcium 7.8 L Total Bilirubin 0.30 AST 14 L ALT 12 Alkaline Phosphatase 68 Serum Total Protein 5.7 L Albumin 3.0 L Orders (Last 24 hours) Category Date Time Status Admission Status Change [Change to Full Admit] ROUTINE Care 05/23/21 07:22 Active Consult Surgery ROUTINE Cons 05/23/21 14:30 Completed NPO Diet 05/23/21 14:30 Active ABDOMEN AND PELVIS W/0 CONTRAS [CT] Urgent Exams 05/23/21 09:28 Completed ABDOMINAL-LIMITED [US] Urgent Exams 05/23/21 16:45 Completed CHEST 1 VIEW (PORTABLE) Stat Exams 05/23/21 07:15 Completed ECHO W/2D AND DOPPLER [US] Routine Exams 05/23/21 15:24 Taken MODIFIED BARIUM SWALLOW (RAD) [MODIFIED BARIUM SWALLOW Exams 05/24/21 13:00 Ordered EXAM] Routine C.Difficile by PCR Urgent Lab 05/23/21 16:45 Ordered CBC W DIFF AM.LAB Lab 05/23/21 05:51 Completed CMP AM.LAB Lab 05/23/21 05:51 Completed Manual Differential NC Routine Lab 05/23/21 05:51 Completed O&P+Crypto+Giardia [MR] Urgent Lab 05/23/21 16:45 Ordered Stool Culture [MR] Urgent Lab 05/23/21 16:45 Ordered Albuterol/Ipratropium 3ml Neb* [DUONEB 0.5-3 MG/3 ml Med 05/23/21 07:00 Active Neb] 3 ml IH Q4HRT Azithromycin 500 mg/250 ml [Zithromax 500 MG/ 250 ML Med 05/23/21 15:00 Active NaCl Premix] 500 mg in 250 ml IV Q24H10 Furosemide 20 mg/2 ml [Lasix 20 MG/2 ML] Med 05/23/21 07:12 Discontinued 20 mg IV ONCE ONE Respiratory Therapy Assessment DAILY RT 05/23/21 07:[address] Eval & Treat ( Order) .as ordered ST 05/23/21 16:58 Active Patient Care Notes (Last 24 hours) 05/23/21 18:14 Nursing Note by Yisel Vázquez Reported abdominal ultrasound results to Ernestina Marie at this time. Ernestina Marie states she will be in to check on pt tomorrow afternoon and is ok with pt starting a clear liqud diet and advancing as tolerated after having modified barium swallow and passing. Initialized on 05/23/21 18:14 - END OF NOTE 05/23/21 16:25 Nursing Note by Kamila Barnett is here rounding on patient for a new consult. Initialized on 05/23/21 16:25 - END OF NOTE 05/23/21 07:22 SBAR Note by Asuncion Lou SITUATION I am calling about MARLINE GROVER the patient's code status is Full Code The problem I am calling about is: pt co difficulty breathing, RT called placed on 3 L O2, fluids decreased from 125/hr to 25/hr, lung sounds-rales/wheezes. ASSESSMENT RECOMMENDATION Physician notified at 07 New Orders received: lasix 20mg IV x one, CXR Vital Signs (Last 4 hours) Temp Pulse Resp BP Pulse Ox 05/23/21 07:08 93 H 24 87 L 05/23/21 03:59 100.7 F 76 22 136/64 92 L Diagnois, Code Status Date of Arrival on Unit 05/20/21 Admitted From Emergency Dept Diagnosis c/o abdominal pain for 1-2 days Resucitation Status Full Code Intake and Output 12 Hours 05/23/21 05/23/21 06:59 18:59 Intake Total 2358 Output Total 3325 Balance -967 Intake: Intake, Oral Amount 880 Intake, IV Amount 1478 Output: Output, Urine Amount 3325 Other: Number of Voids 1 Physical Assessment Anxiety Level Sleeping Mental Status Alert Patient Orientation Person,Place,Time Coma Scale Total 15 Breath Sounds [Anterior/ Crackles Posterior Right Bases] Breath Sounds [Anterior] Clear,Diminished Breath Sounds [Anterior/ Wheezes,Diminished Posterior Bilateral Throughout ] Bowel Sounds [All Quadrants] Present Abdomen Description Soft,Large,Round,Tender Urine Appearance Clear Urine Color Pale,Yellow Skin Color Normal for Race Skin Temperature Warm Pain Scale (Last 12 Hours) Pain Intensity 0 Pain Intensity 0 Pain Intensity 5 Pain Intensity 0 PAST MEDICAL HISTORY Neurological History Other ENT History No Pertinent History Endocrine Medical History No Pertinent History Respiratory History No Pertinent History Cardiac History Coronary Artery Disease,Hypertension GI Medical History GERD History No Pertinent History Pyscho-Social History No Pertinent History Communicable Disease No Pertinent History Lab Results (Last 12 Hours) 05/23/21 05/23/21 Range/Units 05:51 05:51 WBC 9.9 (4.0-10.5) K/mm3 RBC 4.08 L (4.1-5.6) M/mm3 Hgb 11.6 L (12.5-18.0) gm/dl Hct 38.2 L (42-50) % MCV 93.6 (78-100) fl MCH 28.4 (26-32) pg MCHC 30.4 L (32-36) g/dl RDW 14.9 H (11.5-14.0) % Plt Count 239 (150-450) K/mm3 MPV 10.6 (7.5-11.0) fl Sodium 142 (137-145) mmol/L Potassium 4.6 (3.5-5.1) mmol/L Chloride 113 H (98-107) mmol/L Carbon Dioxide 23 (22-30) mmol/L Anion Gap 10.4 (5-15) MEQ/L BUN 19 (9-20) mg/dL Creatinine 1.28 H (0.66-1.25) mg/dL Estimated GFR 59.8 ML/MIN Glucose 124 H (74-106) mg/dL Calcium 7.8 L (8.4-10.2) mg/dL Total Bilirubin 0.30 (0.2-1.3) mg/dL AST 14 L (17-59) U/L ALT 12 (0-50) U/L Alkaline Phosphatase 68 (38-126) U/L Serum Total Protein 5.7 L (6.3-8.2) g/dL Albumin 3.0 L (3.5-5.0) g/dL Microbiology Results (Last 12 Hours) 05/21/21 09:28 Blood Culture Gram Stain - Pending Blood Blood Culture - Preliminary NO GROWTH TO DATE 05/21/21 09:40 Blood Culture Gram Stain - Pending Blood Blood Culture - Preliminary NO GROWTH TO DATE 05/21/21 Unknown Urine Culture - Final Clean Catch Midstream NO GROWTH Orders (Last 12 Hours) Category Date Time Status CHEST 1 VIEW (PORTABLE) Stat Exams 05/23/21 07:15 Ordered Albuterol/Ipratropium 3ml Neb* [DUONEB 0.5-3 MG/3 ml Med 05/23/21 07:00 Active Neb] 3 ml IH Q4HRT Respiratory Therapy Assessment DAILY RT 05/23/21 07:08 Active Active Visit Medications Generic Name Dose Route Start Last Admin Trade Name Freq PRN Reason Stop Dose Admin Acetaminophen 650 mg 05/21/21 00:45 05/22/21 09:47 Acetaminophen 325 Mg Tablet PO 06/20/21 00:44 650 mg Q4H PRN PRN Administration PAIN, FEVER, HEADACHE Albuterol/Ipratropium 3 ml 05/23/21 07:00 05/23/21 07:05 Ipratropium/Albuterol Sulfate 3 Ml Ampul.Neb IH 06/22/21 06:59 3 ml Q4HRT BRUCE Administration Amlodipine Besylate 10 mg 05/21/21 22:00 05/22/21 21:59 Amlodipine Besylate 5 Mg Tablet PO 06/20/21 21:59 10 mg HS BRUCE Administration Aspirin 81 mg 05/21/21 16:00 05/22/21 09:48 Aspirin 81 Mg Tablet.Ec PO 06/20/21 15:59 81 mg DAILY BRUCE Administration Famotidine 20 mg 05/21/21 22:00 05/22/21 21:58 Famotidine 20 Mg Tablet PO 06/20/21 21:59 20 mg BID BRUCE Administration Gabapentin 400 mg 05/21/21 22:00 05/22/21 22:40 Gabapentin 400 Mg Capsule PO 06/20/21 21:59 400 mg BID BRUCE Administration Hydrochlorothiazide 12.5 mg 05/21/21 16:00 05/22/21 09:48 Hydrochlorothiazide 25 Mg Tablet PO 06/20/21 15:59 12.5 mg DAILY BRUCE Administration Hydromorphone HCl 0.5 mg 05/20/21 17:35 05/23/21 01:23 Hydromorphone 1 Mg/1ml Inj 1 Mg/Ml Syringe IV 05/25/21 17:34 0.5 mg Q4H PRN PRN Administration PAIN Sodium Chloride 1,000 mls @ 125 mls/hr 05/20/21 17:45 05/22/21 21:59 Sodium Chloride 0.9% 1000 Ml IV 06/19/21 17:44 100 mls/hr .Q8H BRUCE Administration Ceftriaxone Sodium/Dextrose 1 g in 50 mls @ 100 mls/hr 05/21/21 13:00 05/22/21 09:47 Rocephin 1 Gm-D5w 50 Ml Bag IV 05/24/21 12:59 100 mls/hr Q24H10 BRUCE Administration Isosorbide Mononitrate 30 mg 05/21/21 16:00 05/22/21 09:48 Isosorbide Mononitrate 30 Mg Tab PO 06/20/21 15:59 30 mg DAILY BRUCE Administration Lisinopril 20 mg 05/21/21 16:00 05/22/21 09:48 Lisinopril 20 Mg Tablet PO 06/20/21 15:59 Not Given DAILY BRUCE Metoprolol Tartrate 50 mg 05/21/21 22:00 05/22/21 22:40 Metoprolol Tartrate 50 Mg Tablet PO 06/20/21 21:59 50 mg BID BRUCE Administration Metoprolol Tartrate 25 mg 05/21/21 22:00 05/22/21 21:58 Metoprolol Tartrate 25 Mg Tab PO 06/20/21 21:59 25 mg BID BRUCE Administration Ondansetron HCl 4 mg 05/20/21 17:35 Ondansetron Hcl 4 Mg/2 Ml Vial IV 06/19/21 17:34 Q6H PRN PRN NAUSEA/VOMITING Pantoprazole Sodium 40 mg 05/21/21 10:00 05/22/21 09:49 Pantoprazole 40 Mg Vial IV 06/20/21 09:59 40 mg Q24H10 BRUCE Administration Simvastatin 20 mg 05/21/21 22:00 05/22/21 21:59 Simvastatin 20 Mg Tablet PO 06/20/21 21:59 20 mg HS BRUCE Administration Home Medications Medication Instructions Recorded Confirmed Last Taken Type Isosorbide Mononitrate [Isosorbide 30 mg PO DAILY 05/20/21 05/20/21 05/19/21 09:00 History Mononitrate ER] Initialized on 05/23/21 07:22 - END OF NOTE Code(s): J18.9 - PNEUMONIA, UNSPECIFIED ORGANISM (6) Gall bladder disease Current Visit: Yes Status: Acute Code(s): K82.9 - DISEASE OF GALLBLADDER, UNSPECIFIED
[2021-05-23] MEDS: ZOCOR 20MG PO SCH (22:04)
[2021-05-23] MEDS: NORVASC 5 MG PO SCH (22:05)
[2021-05-24] MEDS: DUONEB 0.5-3 MG/3 ml Neb IH SCH ×5 (02:53→19:04)
--- NOTE | 2021-05-24 07:24 | PCM.NOTE ---
Date and Time: 05/24/21719 Subjective Assessment: doing little better. still cough and chest congestion. c/o abdominal distension - Review of Systems Constitutional: No Fever, No Chills Eyes: No Symptoms Ears, Nose, & Throat: No Symptoms Respiratory: Cough, Short Of Breath Cardiac: No Chest Pain, No Edema, No Syncope Abdominal/Gastrointestinal: Constipation, No Nausea, No Vomiting, No Diarrhea Genitourinary Symptoms: No Dysuria Musculoskeletal: No Back Pain, No Neck Pain Skin: No Rash Neurological: No Dizziness, No Focal Weakness, No Sensory Changes Psychological: No Symptoms Endocrine: No Symptoms Hematologic/Lymphatic: No Symptoms Immunological/Allergic: No Symptoms Objective Exam General Appearance: no apparent distress, alert Neurologic Exam: alert, oriented x 3, cooperative, normal mood/affect, nml cerebellar function, sensation nml, No motor deficits Skin Exam: normal color, warm, dry Eye Exam: PERRL, EOMI, eyes nml inspection Ears, Nose, Throat Exam: normal ENT inspection, pharynx normal, moist mucous membranes Neck Exam: normal inspection, non-tender, supple, full range of motion Respiratory Exam: diminished breath sounds, crackles/rales, rhonchi, wheezing, No respiratory distress Cardiovascular Exam: regular rate/rhythm, normal heart sounds Gastrointestinal/Abdomen Exam: distention, No tenderness, No mass Extremity Exam: normal inspection, normal range of motion Back Exam: normal inspection, normal range of motion, No CVA tenderness, No vertebral tenderness Male Genitalia Exam: deferred Rectal Exam: deferred OBJECTIVE DATA Vital Signs: Vital Signs - 24 hr Temp Pulse Resp BP Pulse Ox 05/24/21 03:00 98.6 F 68 18 142/76 95 05/24/21 02:53 65 18 95 05/23/21 23:00 100.2 F 63 18 120/58 94 L 05/23/21 19:11 64 20 91 L 05/23/21 19:00 97.5 F 73 18 138/66 95 05/23/21 15:56 98.9 F 74 16 138/70 96 05/23/21 14:15 78 24 90 L 05/23/21 12:00 100.2 F 76 18 150/75 94 L 05/23/21 10:46 79 22 91 L 05/23/21 07:55 100.4 F 90 26 H 186/86 92 L 05/23/21 07:51 92 L Pain Assessment - Last Documented Pain Intensity 0 Pain Scale Used FLACC Intake and Output: Intake & Output 05/21/21 05/22/21 05/23/21 05/24/21 11:59 11:59 11:59 11:59 Intake Total 2044 4140 2358 Output Total 650 6752 2812 1250 Balance 1394 9953 -1234 -1250 Weight 89.8 kg Lab Results: Lab Results-Last 24 Hours 05/23/21 Range/Units 05:51 Segmented Neutrophils 72 H (36.-66.) % Band Neutrophils 2 (0.0-2.0) % Lymphocytes (Manual) 20 L (24-44) % Monocytes (Manual) 5 (0.0-12.0) % Eosinophils (Manual) 1 (0.00-3.0) % Platelet Estimate NORMAL (NORMAL) RBC Morphology NORMAL Radiology Exams: Radiology Procedures Category Date Time Status ABDOMEN AND PELVIS W/0 CONTRAS [CT] Urgent Exams 05/23/21 09:28 Completed ABDOMINAL-LIMITED [US] Urgent Exams 05/23/21 16:45 Completed CHEST 1 VIEW (PORTABLE) Stat Exams 05/23/21 07:15 Completed ECHO W/2D AND DOPPLER [US] Routine Exams 05/23/21 15:24 Taken MODIFIED BARIUM SWALLOW (RAD) [MODIFIED BARIUM SWALLOW Exams 05/24/21 13:00 Ordered EXAM] Routine 0007 CT/ABDOMEN AND PELVIS W/0 CONTRAS Indication: Abdomen pain. Constipation. Bloating. Multiple contiguous axial images obtained through the abdomen and pelvis without contrast. Comparison: May 20, 2021. Lung bases demonstrates new posterior bibasilar consolidating/nonconsolidating airspace disease and new small bibasilar effusions. Aspiration pneumonia is of primary concern. Stable 9 mm right middle lobe noncalcified nodule. Heart not enlarged. Noncontrasted stomach unremarkable. Noncontrasted bowel loops again demonstrates mild fluid distended small bowel loops with fluid leveling similar to previous exam, again ileus versus enteritis. Normal air-filled appendix. No free fluid/air. Normal colonic bowel gas throughout. Stable descending/sigmoid diverticulosis, enlarged prostate gland, and mild diffuse fatty liver. Remaining liver, gallbladder, pancreas, spleen, adrenal glands, kidneys, ureters, and bladder are unremarkable for noncontrast exam. Stable scattered aortoiliac calcifications including both renal arteries. Stable small distal periaortic lymph nodes, none pathologically enlarged. Impression: 1. New posterior bibasilar consolidating/nonconsolidating airspace disease with new bibasilar effusions. Rule out aspiration pneumonia. 2. Grossly stable mild fluid distended small bowel loops with fluid leveling, again ileus versus enteritis. 3. Again incidental colonic diverticulosis, fatty liver, and small indeterminant right middle lobe noncalcified nodule. US/ABDOMINAL-LIMITED Indication: Pain. Two-dimensional right upper quadrant abdominal sonogram performed. Comparison: None Diffuse fatty echogenic liver without focal solid/cystic mass or ascites. Gallbladder normally distended with minimal sludge in the dependent portion. No gallstones, wall thickening, or pericholecystic fluid. Common bile duct measures 2.8 mm. Remaining visualized pancreas and right kidney are sonographically unremarkable. Right kidney measures 9.3 cm in length. Impression: 1. Gallbladder sludge and fatty liver. 2. Remaining right upper quadrant sonogram negative. Assessment/Plan (1) Pneumonia Current Visit: Yes Status: Acute Qualifiers: Pneumonia type: aspiration pneumonia Laterality: bilateral Lung location: lower lobe of lung Assessment & Plan: Chief Complaint Diagnosis PNEUMONIA, GASTROENTERITIS Allergies Allergy/AdvReac Type Severity Reaction Status Date / Time naproxen Allergy Verified 05/20/21 20:19 Vital Signs (Last 24 hours) Temp Pulse Resp BP Pulse Ox 05/24/21 03:00 98.6 F 68 18 142/76 95 05/24/21 02:53 65 18 95 05/23/21 23:00 100.2 F 63 18 120/58 94 L 05/23/21 19:11 64 20 91 L 05/23/21 19:00 97.5 F 73 18 138/66 95 05/23/21 15:56 98.9 F 74 16 138/70 96 05/23/21 14:15 78 24 90 L 05/23/21 12:00 100.2 F 76 18 150/75 94 L 05/23/21 10:46 79 22 91 L 05/23/21 07:55 100.4 F 90 26 H 186/86 92 L 05/23/21 07:51 92 L Home Medications Medication Instructions Recorded Confirmed Last Taken Type Isosorbide Mononitrate [Isosorbide 30 mg PO DAILY 05/20/21 05/20/21 05/19/21 09:00 History Mononitrate ER] Current Medications Generic Name Dose Route Start Last Admin Trade Name Frejayy PRN Reason Stop Dose Admin Acetaminophen 650 mg 05/21/21 00:45 05/22/21 09:47 Acetaminophen 325 Mg Tablet PO 06/20/21 00:44 650 mg Q4H PRN PRN Administration PAIN, FEVER, HEADACHE Albuterol/Ipratropium 3 ml 05/23/21 07:00 05/24/21 02:53 Ipratropium/Albuterol Sulfate 3 Ml Ampul.Neb IH 06/22/21 06:59 3 ml Q4HRT BRUCE Administration Amlodipine Besylate 10 mg 05/21/21 22:00 05/23/21 22:05 Amlodipine Besylate 5 Mg Tablet PO 06/20/21 21:59 10 mg HS BRUCE Administration Aspirin 81 mg 05/21/21 16:00 05/23/21 09:17 Aspirin 81 Mg Tablet.Ec PO 06/20/21 15:59 81 mg DAILY BRUCE Administration Famotidine 20 mg 05/21/21 22:00 05/23/21 22:04 Famotidine 20 Mg Tablet PO 06/20/21 21:59 20 mg BID BRUCE Administration Gabapentin 400 mg 05/21/21 22:00 05/23/21 22:05 Gabapentin 400 Mg Capsule PO 06/20/21 21:59 400 mg BID BRUCE Administration Hydrochlorothiazide 12.5 mg 05/21/21 16:00 05/23/21 09:18 Hydrochlorothiazide 25 Mg Tablet PO 06/20/21 15:59 12.5 mg DAILY BRUCE Administration Hydromorphone HCl 0.5 mg 05/20/21 17:35 05/23/21 01:23 Hydromorphone 1 Mg/1ml Inj 1 Mg/Ml Syringe IV 05/25/21 17:34 0.5 mg Q4H PRN PRN Administration PAIN Sodium Chloride 1,000 mls @ 25 mls/hr 05/20/21 17:45 05/23/21 09:01 Sodium Chloride 0.9% 1000 Ml IV 06/19/21 17:44 25 mls/hr .Q24H BRUCE Administration Ceftriaxone Sodium/Dextrose 1 g in 50 mls @ 100 mls/hr 05/21/21 13:00 05/23/21 09:18 Rocephin 1 Gm-D5w 50 Ml Bag IV 05/25/21 12:59 100 mls/hr Q24H10 BRUCE Administration Azithromycin 500 mg in 250 mls @ 250 mls/hr 05/23/21 15:00 05/23/21 15:57 Zithromax 500 Mg/ 250 Ml Nacl Premix IV 06/22/21 14:59 250 mls/hr Q24H10 BRUCE Administration Isosorbide Mononitrate 30 mg 05/21/21 16:00 05/23/21 09:17 Isosorbide Mononitrate 30 Mg Tab PO 06/20/21 15:59 30 mg DAILY BRUCE Administration Lisinopril 20 mg 05/21/21 16:00 05/23/21 09:19 Lisinopril 20 Mg Tablet PO 06/20/21 15:59 20 mg DAILY BRUCE Administration Metoprolol Tartrate 50 mg 05/21/21 22:00 05/23/21 22:05 Metoprolol Tartrate 50 Mg Tablet PO 06/20/21 21:59 50 mg BID BRUCE Administration Metoprolol Tartrate 25 mg 05/21/21 22:00 05/23/21 22:05 Metoprolol Tartrate 25 Mg Tab PO 06/20/21 21:59 25 mg BID BRUCE Administration Ondansetron HCl 4 mg 05/20/21 17:35 Ondansetron Hcl 4 Mg/2 Ml Vial IV 06/19/21 17:34 Q6H PRN PRN NAUSEA/VOMITING Pantoprazole Sodium 40 mg 05/21/21 10:00 05/23/21 09:17 Pantoprazole 40 Mg Vial IV 06/20/21 09:59 40 mg Q24H10 BRUCE Administration Simvastatin 20 mg 05/21/21 22:00 05/23/21 22:04 Simvastatin 20 Mg Tablet PO 06/20/21 21:59 20 mg HS BRUCE Administration Discontinued Medications Generic Name Dose Route Start Last Admin Trade Name Freq PRN Reason Stop Dose Admin Amlodipine Besylate 10 mg 05/20/21 23:00 05/21/21 00:56 Amlodipine Besylate 5 Mg Tablet PO 05/20/21 23:01 Not Given ONCE ONE Fentanyl Citrate 25 mcg 05/20/21 13:15 05/20/21 13:21 Fentanyl Citrate 100 Mcg/2 Ml* Vial IV 05/20/21 13:16 25 mcg STAT ONE Administration Fentanyl Citrate Confirm 05/20/21 13:20 Fentanyl Citrate 100 Mcg/2 Ml* Vial Administered 05/20/21 13:21 Dose 100 mcg .ROUTE .STK-MED ONE Furosemide 20 mg 05/23/21 07:12 05/23/21 07:35 Furosemide 20 Mg/Vial IV 05/23/21 07:13 20 mg ONCE ONE Administration Gabapentin 400 mg 05/20/21 23:00 05/20/21 22:58 Gabapentin 400 Mg Capsule PO 05/20/21 23:01 400 mg ONCE ONE Administration Sodium Chloride 1,000 mls @ 999 mls/hr 05/20/21 14:32 05/20/21 15:57 Sodium Chloride 0.9% 1000 Ml IV 05/20/21 15:32 Infused .Q1H1M STA Infusion Sodium Chloride Confirm 05/20/21 14:51 Sodium Chloride 0.9% 1000 Ml Administered 05/20/21 14:52 Dose 1,000 mls @ ud .ROUTE .STK-MED ONE Sodium Chloride 1,000 mls @ 999 mls/hr 05/20/21 18:41 05/20/21 19:00 Sodium Chloride 0.9% 1000 Ml IV 05/20/21 19:41 999 mls/hr .Q1H1M STA Administration Metoprolol Tartrate 75 mg 05/20/21 23:00 05/20/21 22:57 Metoprolol Tartrate 50 Mg Tablet PO 05/20/21 23:01 75 mg ONCE ONE Administration Ondansetron HCl 4 mg 05/20/21 13:15 05/20/21 13:21 Ondansetron Hcl 4 Mg/2 Ml Vial IV 05/20/21 13:16 4 mg STAT ONE Administration Ondansetron HCl Confirm 05/20/21 13:19 Ondansetron Hcl 4 Mg/2 Ml Vial Administered 05/20/21 13:20 Dose 4 mg .ROUTE .STK-MED ONE Simvastatin 20 mg 05/20/21 23:00 05/20/21 22:58 Simvastatin 20 Mg Tablet PO 05/20/21 23:01 20 mg ONCE ONE Administration Intake & Output (Last 24 hours) 05/21/21 05/22/21 05/23/21 05/24/21 11:59 11:59 11:59 11:59 Intake Total 2045 4140 2358 Output Total 650 2125 4975 1250 Balance 1394 9635 -9937 -3610 Weight 89.8 kg Microbiology Results (Last 24 hours) 05/23/21 16:45 Stool Salmonella/Shigella Screen - Pending 05/23/21 16:45 Stool Stool Culture Result 1 - Final Not Reportable 05/23/21 16:45 Stool Stool Culture Result 2 - Final Not Reportable 05/23/21 16:45 Stool Stool Culture Result 3 - Final Not Reportable 05/23/21 16:45 Stool Stool Culture Result 4 - Final Not Reportable 05/23/21 16:45 Stool Stool Culture Organism Suscept - Final Not Reportable 05/23/21 16:45 Stool Campylobacter Culture - Pending 05/23/21 16:45 Stool Campylobacter Result 1 - Final Not Reportable 05/23/21 16:45 Stool Campylobacter Result 2 - Final Not Reportable 05/23/21 16:45 Stool Campylobactor Result 3 - Final Not Reportable 05/23/21 16:45 Stool Campylobacter Result 4 - Final Not Reportable 05/23/21 16:45 Stool Campylobactor Susceptibility - Final Not Reportable 05/23/21 16:45 Stool Escherichia coli Shiga Toxins EIA - Pending 05/23/21 16:45 Stool Ova and Parasite Concentrate Exam - Pending 05/23/21 16:45 Stool Ova and Parasite Result 1 - Pending 05/23/21 16:45 Stool Ova and Parasite Result 2 - Pending 05/23/21 16:45 Stool Ova and Parasite Result 3 - Pending 05/23/21 16:45 Stool Ova and Parasite Result 4 - Pending 05/23/21 16:45 Stool Antimicrobic Susceptibility - Pending 05/23/21 16:45 Stool Giardia lamblia (PCR) - Pending 05/23/21 16:45 Stool Cryptosporidium Antigen - Pending 05/21/21 09:28 Blood Blood Culture Gram Stain - Pending 05/21/21 09:28 Blood Blood Culture - Preliminary NO GROWTH TO DATE 05/21/21 09:40 Blood Blood Culture Gram Stain - Pending 05/21/21 09:40 Blood Blood Culture - Preliminary NO GROWTH TO DATE 05/21/21 Unknown Clean Catch Midstream Urine Culture - Final NO GROWTH Laboratory Results (Last 24 hours) 05/23/21 05:51 Segmented Neutrophils 72 H Band Neutrophils 2 Lymphocytes (Manual) 20 L Monocytes (Manual) 5 Eosinophils (Manual) 1 Platelet Estimate NORMAL RBC Morphology NORMAL Orders (Last 24 hours) Category Date Time Status Admission Status Change [Change to Full Admit] ROUTINE Care 05/23/21 07:22 Active Consult Surgery ROUTINE Cons 05/23/21 14:30 Completed NPO Diet 05/23/21 14:30 Active ABDOMEN AND PELVIS W/0 CONTRAS [CT] Urgent Exams 05/23/21 09:28 Completed ABDOMINAL-LIMITED [US] Urgent Exams 05/23/21 16:45 Completed CHEST 1 VIEW (PORTABLE) Stat Exams 05/23/21 07:15 Completed ECHO W/2D AND DOPPLER [US] Routine Exams 05/23/21 15:24 Taken MODIFIED BARIUM SWALLOW (RAD) [MODIFIED BARIUM SWALLOW Exams 05/24/21 13:00 Ordered EXAM] Routine C.Difficile by PCR Urgent Lab 05/23/21 16:45 Ordered O&P+Crypto+Giardia [MR] Urgent Lab 05/23/21 16:45 Ordered Stool Culture [MR] Urgent Lab 05/23/21 16:45 Ordered Albuterol/Ipratropium 3ml Neb* [DUONEB 0.5-3 MG/3 ml Med 05/23/21 07:00 Active Neb] 3 ml IH Q4HRT Azithromycin 500 mg/250 ml [Zithromax 500 MG/ 250 ML Med 05/23/21 15:00 Active NaCl Premix] 500 mg in 250 ml IV Q24H10 Furosemide 20 mg/2 ml [Lasix 20 MG/2 ML] Med 05/23/21 07:12 Discontinued 20 mg IV ONCE ONE Respiratory Therapy Assessment DAILY RT 05/23/21 07:[address] Eval & Treat ( Order) .as ordered ST 05/23/21 16:58 Active Patient Care Notes (Last 24 hours) 05/23/21 18:14 Nursing Note by Yisel Vázquez Reported abdominal ultrasound results to Ernestina Marie at this time. Ernestina Marie states she will be in to check on pt tomorrow afternoon and is ok with pt starting a clear liqud diet and advancing as tolerated after having modified barium swallow 05/23/21 16:25 Nursing Note by Kamila Barnett is here rounding on patient for a new consult. Code(s): J18.9 - PNEUMONIA, UNSPECIFIED ORGANISM (2) Abdominal pain Current Visit: Yes Status: Acute Qualifiers: Abdominal location: periumbilical Qualified Code(s): R10.33 - Periumbilical pain Code(s): R10.9 - UNSPECIFIED ABDOMINAL PAIN (3) Gastroenteritis Current Visit: Yes Status: Acute Code(s): K52.9 - NONINFECTIVE GASTROENTERITIS AND COLITIS, UNSPECIFIED (4) Acute renal injury Current Visit: Yes Status: Acute Code(s): N17.9 - ACUTE KIDNEY FAILURE, UNSPECIFIED (5) Hypoxia Current Visit: Yes Status: Acute Code(s): R09.02 - HYPOXEMIA (6) Gall bladder disease Current Visit: Yes Status: Acute Code(s): K82.9 - DISEASE OF GALLBLADDER, UNSPECIFIED
--- NOTE | 2021-05-24 08:32 | CONS ---
CONSULT DATE: 05/23/2021 HISTORY: This is a 65-year-old gentleman at [facility] who was admitted a couple days back with some abdominal pain and concern for possible sepsis. He had an elevated white blood cell count as well. He was worked up by the medical team at that time. He had a CT scan that was nonspecific and nonsurgical. They continued to treat him medically. He improved significantly per her registered nurse. On our discussion however, he then had an episode where he started having pain after eating and then he also had abdominal distention and shortness of breath. At this time he was then further worked up. He was given Lasix and he had a CT scan ordered. After the CT scan was complete, we were consulted and the CT scan reads that there is a questionable aspiration pneumonia with mild fluid distention of the small bowel, possible mild ileus versus gastroenteritis. I discussed this with the patient his history. He states that he does have some upper abdominal pain after eating that pain radiates lower in his abdomen. He did have some nausea, vomiting and diarrhea prior to coming to the hospital. He does not know if he had any sick contacts. He did say that he knows that stomach flu is going around but he is not sure if anyone that he was in contact with had the stomach flu. He is not sure of anything he ate caused these symptoms. I did ask if he had ever had any of the symptoms whether it be nausea, vomiting, diarrhea or pain in the past or currently and he stated that he is not sure. It is hard to gather a history from him regarding these symptoms in the past. He said he might have had these symptoms but they were not as bad. He also notes that he is still having some diarrhea and then after he ate today he did have pain that radiated inferiorly. Otherwise he is not having any other complaints. He does not complain of chest pain or shortness of breath currently. He is resting comfortably in bed. PAST MEDICAL HISTORY: Reviewed and in the chart. Significant for hypertension, reflux disease, hyperlipidemia. PAST SURGICAL HISTORY: Reviewed and in the chart. He denies any past abdominal surgeries. MEDICATIONS: Reviewed and in the chart. Amlodipine, aspirin 81 mg, atorvastatin, famotidine, gabapentin, hydrochlorothiazide, metoprolol, lisinopril, isosorbide mononitrate. ALLERGIES: NAPROXEN. SOCIAL HISTORY: Reviewed and in the chart. Positive for tobacco in the past. No current alcohol use. FAMILY HISTORY: Reviewed and in the chart. He denies any pertinent family history. PHYSICAL EXAMINATION: His current vital signs are temperature 100.7F, heart rate 76, blood pressure 136/64. Saturation 92% on 3 liters. GENERAL: No acute distress. Alert, oriented. CVS: Regular rate and rhythm. PULMONARY: Nonlabored respirations. ABDOMEN: Soft, very minimally tender in his mid-abdomen. No rebound, no guarding, no obvious ventral abdominal wall hernia. EXTREMITIES: Normal. LAB DATA AND TESTS: Initial white blood cell count 12.6, current white blood cell count 9.9, hemoglobin was 14.8, current hemoglobin 11.6, PLT count 270,000. Creatinine was 2.53 and now 1.28, lipase 24, ALT 22. The patient denies any bleeding. He is not having any fever or chills. He has no other symptoms. He is not having any difficulty urinating. His urine culture was negative. ASSESSMENT: This is a 65-year-old gentleman with vague upper abdominal pain that radiates inferiorly after eating. His history is very hard to obtain regarding his prior symptoms before hospitalization and so I am going to check a right upper quadrant ultrasound because of the pain after eating. He may have gallbladder disease. When he points to his abdomen, he points generally to the middle but then sometimes he points slightly to his right side and it is after eating and he said that he might have had pain after eating prior so we will check that. I also think that he may have gastritis or peptic ulcer disease that is also in my differential. He may need an EGD at some point and then he may also need a colonoscopy as an outpatient. He is having some diarrhea and so we have added ova and parasite, Clostridium difficile and stool culture to his labs. He is getting a swallow test tomorrow due to his possible aspiration ordered by Dr. Norman. At this time his creatinine has significantly improved. He may have had a gastroenteritis that caused him significant dehydration that he is continuing to get over but we will keep the gallbladder disease as well as peptic ulcer disease, gastritis and possible other GI concerns in our differential. I think his possibility of having a bowel obstruction is quite low based on his two CT scans at this exact moment. PLAN: Plan will be for him to have his swallow test and based on his medical evaluation when it is medically safe for him to eat as long as he is not having any significant abdominal pain he could trial a clear liquid diet and advance as tolerated. He needs to stop if he has any further abdominal pain. I will also review all of his studies regarding his gallbladder as well.
[2021-05-24] MEDS: ECOTRIN 81 MG PO SCH (09:20)
[2021-05-24] MEDS: Lopressor 50 MG PO SCH ×2 (09:20→21:46)
[2021-05-24] MEDS: hydroDIURIL 25 MG PO SCH (09:20)
[2021-05-24] MEDS: Imdur 30 MG PO SCH (09:20)
[2021-05-24] MEDS: Lopressor 25MG Tab PO SCH ×2 (09:20→21:47)
[2021-05-24] MEDS: Zestril 20 MG PO SCH (09:21)
[2021-05-24] MEDS: PROTONIX 40 MG IV IV SCH (09:21)
[2021-05-24] MEDS: Pepcid 20 MG PO SCH ×2 (09:21→21:47)
[2021-05-24] MEDS: Neurontin 400 MG PO SCH ×2 (09:21→21:46)
[2021-05-24] MEDS: Zithromax 500 MG/ 250 ML NaCl Premix 500 MG/250 ML IVPB IV SCH (09:28)
[2021-05-24 09:29] LABS: Hematocrit 39.2 % (42-50); Hemoglobin 12.3 gm/dl (12.5-18.0); Mean Cell Volume 91.2 fl (78-100); Mean Corpuscular Hemoglobin 28.6 pg (26-32); Mean Corpuscular Hgb Concent. 31.4 g/dl (32-36); Platelet Count 222 K/mm3 (150-450); Red Cell Distribution Width 14.7 % (11.5-14.0); White Blood Count 9.3 K/mm3 (4.0-10.5)
[2021-05-24 10:02] LABS: ALBUMIN 3.1 g/dL (3.5-5.0); ALKALINE PHOSPHATASE 76 U/L (38-126); ANION GAP 13.7 MEQ/L (5-15); BLOOD UREA NITROGEN 15 mg/dL (9-20); CHLORIDE 107 mmol/L (98-107); Calcium 8.8 mg/dL (8.4-10.2); Carbon Dioxide 26 mmol/L (22-30); Creatinine 1 1.21 mg/dL (0.66-1.25); EST GLOMERULAR FILTRATION RATE > 60.0 ML/MIN; Glucose 116 mg/dL (74-106); Potassium 4.6 mmol/L (3.5-5.1); SGOT/AST 24 U/L (17-59); SGPT/ALT 17 U/L (0-50); SODIUM 142 mmol/L (137-145)
[2021-05-24] MEDS: ROCEPHIN 1 Gm-D5w 50 ml Bag** 1 G/50 ML IVPB IV SCH (10:29)
[2021-05-24 10:30] LABS: BAND 8 % (0.0-2.0); Basophil 1 % (0.0-1.0); Eosinophil 7 % (0.00-3.0); Lymphocytes 13 % (24-44); Monocyte 8 % (0.0-12.0); Neutrophils 63 % (36.-66.); Total Cells Counted 100
[2021-05-24 10:31] LABS: Platelet Estimate NORMAL (NORMAL)
[2021-05-24 10:32] LABS: Absolute Neutrophil Ct (ANC) 6.62 (1.4-6.9)
[2021-05-24] MEDS: Hydromorphone 1 mg/ml Injection IV PRN (10:44)
[2021-05-24] MEDS: TYLENOL 325 MG PO PRN (15:40)
--- NOTE | 2021-05-24 16:05 | XRAY ---
Exam: Modified barium swallow from 05/24/2021. Comparison: AP upright portable chest film from 05/23/2021. Indication: Recent abnormal chest radiograph with bilateral infiltrative densities within the lungs; consider aspiration. Findings: The examination was performed with the patient in the upright lateral sitting position using the C-arm. Both the speech pathologist and the diagnostic radiologist were present for the exam. 1 minute, 23 seconds of fluoroscopy time was utilized. Multiple different liquid and solid consistencies were tested, as outlined in the speech pathologist's report. There was noted to be some premature roll over of the thin barium contrast into the vallecula before the swallow ensued. However, no persistent deep laryngeal penetration or aspiration was seen. Some transient laryngeal penetration was also seen when the patient swallowed thin liquid barium from a cup using a straw, but with the passing swallow, this did not persist. Again, no persistent deep laryngeal penetration or aspiration was seen with any of the tested consistencies. Please see speech pathologist's report for further details. Impression: 1. As above.
[2021-05-24] MEDS: ZOCOR 20MG PO SCH (21:46)
[2021-05-24] MEDS: NORVASC 5 MG PO SCH (21:47)
[2021-05-25] MEDS: Sodium Chloride 0.9% 1000 ML 1,000 ML IV SCH (06:43)
[2021-05-25] MEDS: DUONEB 0.5-3 MG/3 ml Neb IH SCH ×2 (07:01→10:51)
[2021-05-25] MEDS: Lopressor 50 MG PO SCH (09:54)
[2021-05-25] MEDS: Imdur 30 MG PO SCH (09:55)
[2021-05-25] MEDS: Neurontin 400 MG PO SCH (09:55)
[2021-05-25] MEDS: ECOTRIN 81 MG PO SCH (09:55)
[2021-05-25] MEDS: Zestril 20 MG PO SCH (09:55)
[2021-05-25] MEDS: Pepcid 20 MG PO SCH (09:55)
[2021-05-25] MEDS: Lopressor 25MG Tab PO SCH (09:55)
[2021-05-25] MEDS: PROTONIX 40 MG IV IV SCH (09:56)
[2021-05-25] MEDS: hydroDIURIL 25 MG PO SCH (09:56)
[2021-05-25] MEDS: ROCEPHIN 1 Gm-D5w 50 ml Bag** 1 G/50 ML IVPB IV SCH (10:00)
[2021-05-25] MEDS: Zithromax 500 MG/ 250 ML NaCl Premix 500 MG/250 ML IVPB IV SCH (10:11)
--- NOTE | 2021-05-25 10:31 | PCM.NOTE ---
Date and Time: 05/25/21 1030 Subjective Assessment: doing better - Review of Systems Constitutional: No Fever, No Chills Eyes: No Symptoms Ears, Nose, & Throat: No Symptoms Respiratory: No Cough, No Short Of Breath Cardiac: No Chest Pain, No Edema, No Syncope Abdominal/Gastrointestinal: No Abdominal Pain, No Nausea, No Vomiting, No Diarrhea Genitourinary Symptoms: No Dysuria Musculoskeletal: No Back Pain, No Neck Pain Skin: No Rash Neurological: No Dizziness, No Focal Weakness, No Sensory Changes Psychological: No Symptoms Endocrine: No Symptoms Hematologic/Lymphatic: No Symptoms Immunological/Allergic: No Symptoms Objective Exam General Appearance: no apparent distress, alert Neurologic Exam: alert, oriented x 3, cooperative, normal mood/affect, nml cerebellar function, sensation nml, No motor deficits Skin Exam: normal color, warm, dry Eye Exam: PERRL, EOMI, eyes nml inspection Ears, Nose, Throat Exam: normal ENT inspection, pharynx normal, moist mucous membranes Neck Exam: normal inspection, non-tender, supple, full range of motion Respiratory Exam: normal breath sounds, lungs clear, No respiratory distress Cardiovascular Exam: regular rate/rhythm, normal heart sounds Gastrointestinal/Abdomen Exam: soft, No tenderness, No mass Extremity Exam: normal inspection, normal range of motion Back Exam: normal inspection, normal range of motion, No CVA tenderness, No vertebral tenderness Male Genitalia Exam: deferred Rectal Exam: deferred OBJECTIVE DATA Vital Signs: Vital Signs - 24 hr Temp Pulse Resp BP Pulse Ox 05/25/21 08:00 96.9 F 72 18 136/74 95 05/25/21 07:04 76 20 93 L 05/25/21 04:00 100.2 F 69 18 123/87 95 05/25/21 00:00 100.4 F 70 20 112/56 97 05/24/21 19:57 99.0 F 79 18 129/72 95 05/24/21 19:06 79 18 95 05/24/21 15:00 98.2 F 64 16 103/55 95 05/24/21 11:08 64 22 93 L 05/24/21 11:00 99.1 F 64 19 122/71 93 L Pain Assessment - Last Documented Pain Intensity 0 Pain Scale Used 0-10 Pain Scale Intake and Output: Intake & Output 05/22/21 05/23/21 05/24/21 05/25/21 11:59 11:59 11:59 11:59 Intake Total 4140 2352 2615 Output Total 2128 3796 1250 2350 Balance 2014 2617 -1250 265 Weight 89.8 kg Lab Results: Lab Results-Last 24 Hours 05/24/21 Range/Units 09:10 Absolute Granulocytes 6.62 (1.4-6.9) Segmented Neutrophils 63 (36.-66.) % Band Neutrophils 8 H (0.0-2.0) % Lymphocytes (Manual) 13 L (24-44) % Monocytes (Manual) 8 (0.0-12.0) % Eosinophils (Manual) 7 H (0.00-3.0) % Basophils (Manual) 1 (0.0-1.0) % Platelet Estimate NORMAL (NORMAL) RBC Morphology NORMAL Radiology Exams: Radiology Procedures Category Date Time Status ABDOMINAL-LIMITED [US] Urgent Exams 05/23/21 16:45 Completed ECHO W/2D AND DOPPLER [US] Routine Exams 05/23/21 15:24 Taken MODIFIED BARIUM SWALLOW (RAD) [MODIFIED BARIUM SWALLOW Exams 05/24/21 13:00 Completed EXAM] Routine Multi-Disciplinary Progress Notes: Multi-Disciplinary Progress Notes 05/24/21 15:00 (created 05/24/21 17:35) Case Management Note by Kandi Bejarano S/W PATIENT- HE CONTINUES TO DENY ANY NEW NEEDS AT TIME OF DC. HE REPORTS HIS SON CAN HELP HIM AT HOME IF NEEDED WELL HIS NEIGHBOR. HE IS REFUSING HHC AT THIS TIME. PATIENT CURRENTLY NEEDING OXYGEN. PATIENT DOES NOT WEAR OXYGEN AT HOME. [facility] ORDER FORM AND INSTRUCTIONS PLACED ON CHART IF NEEDED OVER THE WEEKEND Initialized on 05/24/21 17:35 - END OF NOTE 05/24/21 14:14 Respiratory Note by Asuncion Barros PT'S O2 SAT ON ROOM AIR WHILE AT REST WAS 85%. PT WAS PLACED ON 2LPM VIA NASAL CANNULA AND O2 SAT INCREASED 90%. NURSE NOTIFIED. Initialized on 05/24/21 14:14 - END OF NOTE Assessment/Plan (1) Pneumonia Current Visit: Yes Status: Acute Qualifiers: Pneumonia type: aspiration pneumonia Laterality: bilateral Lung location: lower lobe of lung Assessment & Plan: Chief Complaint Diagnosis PNEUMONIA, GASTROENTERITIS Allergies Allergy/AdvReac Type Severity Reaction Status Date / Time naproxen Allergy Verified 05/20/21 20:19 Vital Signs (Last 24 hours) Temp Pulse Resp BP Pulse Ox 05/25/21 08:00 96.9 F 72 18 136/74 95 05/25/21 07:04 76 20 93 L 05/25/21 04:00 100.2 F 69 18 123/87 95 05/25/21 00:00 100.4 F 70 20 112/56 97 05/24/21 19:57 99.0 F 79 18 129/72 95 05/24/21 19:06 79 18 95 05/24/21 15:00 98.2 F 64 16 103/55 95 05/24/21 11:08 64 22 93 L 05/24/21 11:00 99.1 F 64 19 122/71 93 L Home Medications Medication Instructions Recorded Confirmed Last Taken Type Isosorbide Mononitrate [Isosorbide 30 mg PO DAILY 05/20/21 05/20/21 05/19/21 09:00 History Mononitrate ER] Current Medications Generic Name Dose Route Start Last Admin Trade Name Gregorio PRN Reason Stop Dose Admin Acetaminophen 650 mg 05/21/21 00:45 05/24/21 15:40 Acetaminophen 325 Mg Tablet PO 06/20/21 00:44 650 mg Q4H PRN PRN Administration PAIN, FEVER, HEADACHE Albuterol/Ipratropium 3 ml 05/24/21 15:00 05/25/21 07:01 Ipratropium/Albuterol Sulfate 3 Ml Ampul.Neb IH 06/23/21 14:59 3 ml QIDRT BRUCE Administration Amlodipine Besylate 10 mg 05/21/21 22:00 05/24/21 21:47 Amlodipine Besylate 5 Mg Tablet PO 06/20/21 21:59 10 mg HS BRUCE Administration Aspirin 81 mg 05/21/21 16:00 05/25/21 09:55 Aspirin 81 Mg Tablet.Ec PO 06/20/21 15:59 81 mg DAILY BRUCE Administration Famotidine 20 mg 05/21/21 22:00 05/25/21 09:55 Famotidine 20 Mg Tablet PO 06/20/21 21:59 20 mg BID BRUCE Administration Gabapentin 400 mg 05/21/21 22:00 05/25/21 09:55 Gabapentin 400 Mg Capsule PO 06/20/21 21:59 400 mg BID BRUCE Administration Hydrochlorothiazide 12.5 mg 05/21/21 16:00 05/25/21 09:56 Hydrochlorothiazide 25 Mg Tablet PO 06/20/21 15:59 12.5 mg DAILY BRUCE Administration Hydromorphone HCl 0.5 mg 05/20/21 17:35 05/24/21 10:44 Hydromorphone 1 Mg/1ml Inj 1 Mg/Ml Syringe IV 05/25/21 17:34 0.5 mg Q4H PRN PRN Administration PAIN Sodium Chloride 1,000 mls @ 25 mls/hr 05/20/21 17:45 05/25/21 06:43 Sodium Chloride 0.9% 1000 Ml IV 06/19/21 17:44 25 mls/hr .Q24H BRUCE Administration Ceftriaxone Sodium/Dextrose 1 g in 50 mls @ 100 mls/hr 05/21/21 13:00 05/25/21 10:00 Rocephin 1 Gm-D5w 50 Ml Bag IV 05/26/21 12:59 100 mls/hr Q24H10 BRUCE Administration Azithromycin 500 mg in 250 mls @ 250 mls/hr 05/23/21 15:00 05/25/21 10:11 Zithromax 500 Mg/ 250 Ml Nacl Premix IV 06/22/21 14:59 250 mls/hr Q24H10 BRUCE Administration Isosorbide Mononitrate 30 mg 05/21/21 16:00 05/25/21 09:55 Isosorbide Mononitrate 30 Mg Tab PO 06/20/21 15:59 30 mg DAILY BRUCE Administration Lisinopril 20 mg 05/21/21 16:00 05/25/21 09:55 Lisinopril 20 Mg Tablet PO 06/20/21 15:59 20 mg DAILY BRUCE Administration Metoprolol Tartrate 50 mg 05/21/21 22:00 05/25/21 09:54 Metoprolol Tartrate 50 Mg Tablet PO 06/20/21 21:59 50 mg BID BRUCE Administration Metoprolol Tartrate 25 mg 05/21/21 22:00 05/25/21 09:55 Metoprolol Tartrate 25 Mg Tab PO 06/20/21 21:59 25 mg BID BRUCE Administration Ondansetron HCl 4 mg 05/20/21 17:35 Ondansetron Hcl 4 Mg/2 Ml Vial IV 06/19/21 17:34 Q6H PRN PRN NAUSEA/VOMITING Pantoprazole Sodium 40 mg 05/21/21 10:00 05/25/21 09:56 Pantoprazole 40 Mg Vial IV 06/20/21 09:59 40 mg Q24H10 BRUCE Administration Simvastatin 20 mg 05/21/21 22:00 05/24/21 21:46 Simvastatin 20 Mg Tablet PO 06/20/21 21:59 20 mg HS BRUCE Administration Discontinued Medications Generic Name Dose Route Start Last Admin Trade Name Frejayy PRN Reason Stop Dose Admin Albuterol/Ipratropium 3 ml 05/23/21 07:00 05/24/21 11:07 Ipratropium/Albuterol Sulfate 3 Ml Ampul.Neb IH 06/22/21 06:59 3 ml Q4HRT BRUCE Administration Amlodipine Besylate 10 mg 05/20/21 23:00 05/21/21 00:56 Amlodipine Besylate 5 Mg Tablet PO 05/20/21 23:01 Not Given ONCE ONE Fentanyl Citrate 25 mcg 05/20/21 13:15 05/20/21 13:21 Fentanyl Citrate 100 Mcg/2 Ml* Vial IV 05/20/21 13:16 25 mcg STAT ONE Administration Fentanyl Citrate Confirm 05/20/21 13:20 Fentanyl Citrate 100 Mcg/2 Ml* Vial Administered 05/20/21 13:21 Dose 100 mcg .ROUTE .STK-MED ONE Furosemide 20 mg 05/23/21 07:12 05/23/21 07:35 Furosemide 20 Mg/Vial IV 05/23/21 07:13 20 mg ONCE ONE Administration Gabapentin 400 mg 05/20/21 23:00 05/20/21 22:58 Gabapentin 400 Mg Capsule PO 05/20/21 23:01 400 mg ONCE ONE Administration Sodium Chloride 1,000 mls @ 999 mls/hr 05/20/21 14:32 05/20/21 15:57 Sodium Chloride 0.9% 1000 Ml IV 05/20/21 15:32 Infused .Q1H1M STA Infusion Sodium Chloride Confirm 05/20/21 14:51 Sodium Chloride 0.9% 1000 Ml Administered 05/20/21 14:52 Dose 1,000 mls @ ud .ROUTE .STK-MED ONE Sodium Chloride 1,000 mls @ 999 mls/hr 05/20/21 18:41 05/20/21 19:00 Sodium Chloride 0.9% 1000 Ml IV 05/20/21 19:41 999 mls/hr .Q1H1M STA Administration Metoprolol Tartrate 75 mg 05/20/21 23:00 05/20/21 22:57 Metoprolol Tartrate 50 Mg Tablet PO 05/20/21 23:01 75 mg ONCE ONE Administration Ondansetron HCl 4 mg 05/20/21 13:15 05/20/21 13:21 Ondansetron Hcl 4 Mg/2 Ml Vial IV 05/20/21 13:16 4 mg STAT ONE Administration Ondansetron HCl Confirm 05/20/21 13:19 Ondansetron Hcl 4 Mg/2 Ml Vial Administered 05/20/21 13:20 Dose 4 mg .ROUTE .STK-MED ONE Simvastatin 20 mg 05/20/21 23:00 05/20/21 22:58 Simvastatin 20 Mg Tablet PO 05/20/21 23:01 20 mg ONCE ONE Administration Intake & Output (Last 24 hours) 05/22/21 05/23/21 05/24/21 05/25/21 11:59 11:59 11:59 11:59 Intake Total 4140 2358 2615 Output Total 2125 4975 1250 2350 Balance 7438 -6774 -8930 265 Weight 89.8 kg Laboratory Results (Last 24 hours) 05/24/21 09:10 Absolute Granulocytes 6.62 Segmented Neutrophils 63 Band Neutrophils 8 H Lymphocytes (Manual) 13 L Monocytes (Manual) 8 Eosinophils (Manual) 7 H Basophils (Manual) 1 Platelet Estimate NORMAL RBC Morphology NORMAL Orders (Last 24 hours) Category Date Time Status House Regular Diet Diet 05/24/21 Dinner Active MODIFIED BARIUM SWALLOW (RAD) [MODIFIED BARIUM SWALLOW Exams 05/24/21 13:00 Completed EXAM] Routine C.Difficile by PCR Urgent Lab 05/25/21 08:57 Ordered O&P+Crypto+Giardia [MR] Urgent Lab 05/25/21 08:57 Ordered Stool Culture [MR] Urgent Lab 05/25/21 08:57 Ordered Albuterol/Ipratropium 3ml Neb* [DUONEB 0.5-3 MG/3 ml Med 05/24/21 15:00 Active Neb] 3 ml IH QIDRT Patient Care Notes (Last 24 hours) 05/24/21 20:38 Nursing Note by Joya Stinson Rounded with Dr. Konrad Marie at 2024, He sates pt is safe for D/C tomorrow from surgical standpoint Initialized on 05/24/21 20:38 - END OF NOTE 05/24/21 15:48 Nursing Note by Kena Pickett per Dr Marie order, patient has taken clear and full liquids and has no c/o nausea, pain, or distention. Will continue to advance diet as tolerated Initialized on 05/24/21 15:48 - END OF NOTE 05/24/21 15:00 (created 05/24/21 17:35) Case Management Note by Kandi Bejarano S/W PATIENT- HE CONTINUES TO DENY ANY NEW NEEDS AT TIME OF DC. HE REPORTS HIS SON CAN HELP HIM AT HOME IF NEEDED WELL HIS NEIGHBOR. HE IS REFUSING HHC AT THIS TIME. PATIENT CURRENTLY NEEDING OXYGEN. PATIENT DOES NOT WEAR OXYGEN AT HOME. [facility] ORDER FORM AND INSTRUCTIONS PLACED ON CHART IF NEEDED OVER THE WEEKEND Initialized on 05/24/21 17:35 - END OF NOTE 05/24/21 14:14 Respiratory Note by Asuncion Barros PT'S O2 SAT ON ROOM AIR WHILE AT REST WAS 85%. PT WAS PLACED ON 2LPM VIA NASAL CANNULA AND O2 SAT INCREASED 90%. NURSE NOTIFIED. Initialized on 05/24/21 14:14 - END OF NOTE Code(s): J18.9 - PNEUMONIA, UNSPECIFIED ORGANISM (2) Abdominal pain Current Visit: Yes Status: Acute Qualifiers: Abdominal location: periumbilical Qualified Code(s): R10.33 - Periumbilical pain Code(s): R10.9 - UNSPECIFIED ABDOMINAL PAIN (3) Gastroenteritis Current Visit: Yes Status: Acute Code(s): K52.9 - NONINFECTIVE GASTROENTERITIS AND COLITIS, UNSPECIFIED (4) Acute renal injury Current Visit: Yes Status: Acute Code(s): N17.9 - ACUTE KIDNEY FAILURE, UNSPECIFIED (5) Hypoxia Current Visit: Yes Status: Acute Code(s): R09.02 - HYPOXEMIA (6) Gall bladder disease Current Visit: Yes Status: Acute Code(s): K82.9 - DISEASE OF GALLBLADDER, UNSPECIFIED
[2021-05-25 11:42] LABS: 027 TOX PROD PRESUMPTIVE NEGATIVE (NEGATIVE); TOXIGENIC C. DIFF ORG NEGATIVE (NEGATIVE)
[2021-05-25 12:11] VITALS: BP 137/79; PULSE 91; O2SAT 94
[2021-05-25] MEDS ORDERED: HUMALOG SQ PRN (12:13)
--- NOTE | 2021-05-26 07:56 | PCM.DS ---
Discharge Summary Date of Admission: 05/23/21 07:22 Admitting Physician: VIN EVANS Consults: Consults on Case 05/23/21 14:30 Consult Surgery ROUTINE Primary Care Provider: VIN EVANS Allergies Allergies naproxen Allergy (Verified 05/20/21 20:19) Hospital Summary - Hospital Course Hospital Course: Chief Complaint Diagnosis PNEUMONIA, GASTROENTERITIS Allergies Allergy/AdvReac Type Severity Reaction Status Date / Time naproxen Allergy Verified 05/20/21 20:19 Vital Signs (Last 24 hours) Temp Pulse Resp BP Pulse Ox 05/25/21 12:00 98.2 F 91 H 18 137/79 94 L 05/25/21 10:53 73 20 93 L 05/25/21 08:00 96.9 F 72 18 136/74 95 Home Medications Medication Instructions Recorded Confirmed Last Taken Type Isosorbide Mononitrate [Isosorbide 30 mg PO DAILY 05/20/21 05/20/21 05/19/21 09:00 History Mononitrate ER] Cephalexin Monohydrate [Keflex] 500 mg PO BID 7 Days #14 05/25/21 Unknown Rx Current Medications Discontinued Medications Generic Name Dose Route Start Last Admin Trade Name Freq PRN Reason Stop Dose Admin Acetaminophen 650 mg 05/21/21 00:45 05/24/21 15:40 Acetaminophen 325 Mg Tablet PO 06/20/21 00:44 650 mg Q4H PRN PRN Administration PAIN, FEVER, HEADACHE Albuterol/Ipratropium 3 ml 05/23/21 07:00 05/24/21 11:07 Ipratropium/Albuterol Sulfate 3 Ml Ampul.[facility] 06/22/21 06:59 3 ml Q4HRT BRUCE Administration Albuterol/Ipratropium 3 ml 05/24/21 15:00 05/25/21 10:51 Ipratropium/Albuterol Sulfate 3 Ml Ampul.[facility] 06/23/21 14:59 3 ml QIDRT BRUCE Administration Amlodipine Besylate 10 mg 05/20/21 23:00 05/21/21 00:56 Amlodipine Besylate 5 Mg Tablet PO 05/20/21 23:01 Not Given ONCE ONE Amlodipine Besylate 10 mg 05/21/21 22:00 05/24/21 21:47 Amlodipine Besylate 5 Mg Tablet PO 06/20/21 21:59 10 mg HS BRUCE Administration Aspirin 81 mg 05/21/21 16:00 05/25/21 09:55 Aspirin 81 Mg Tablet.Ec PO 06/20/21 15:59 81 mg DAILY BRUCE Administration Famotidine 20 mg 05/21/21 22:00 05/25/21 09:55 Famotidine 20 Mg Tablet PO 06/20/21 21:59 20 mg BID BRUCE Administration Fentanyl Citrate 25 mcg 05/20/21 13:15 05/20/21 13:21 Fentanyl Citrate 100 Mcg/2 Ml* Vial IV 05/20/21 13:16 25 mcg STAT ONE Administration Fentanyl Citrate Confirm 05/20/21 13:20 Fentanyl Citrate 100 Mcg/2 Ml* Vial Administered 05/20/21 13:21 Dose 100 mcg .ROUTE .STK-MED ONE Furosemide 20 mg 05/23/21 07:12 05/23/21 07:35 Furosemide 20 Mg/Vial IV 05/23/21 07:13 20 mg ONCE ONE Administration Gabapentin 400 mg 05/20/21 23:00 05/20/21 22:58 Gabapentin 400 Mg Capsule PO 05/20/21 23:01 400 mg ONCE ONE Administration Gabapentin 400 mg 05/21/21 22:00 05/25/21 09:55 Gabapentin 400 Mg Capsule PO 06/20/21 21:59 400 mg BID BRUCE Administration Hydrochlorothiazide 12.5 mg 05/21/21 16:00 05/25/21 09:56 Hydrochlorothiazide 25 Mg Tablet PO 06/20/21 15:59 12.5 mg DAILY BRUCE Administration Hydromorphone HCl 0.5 mg 05/20/21 17:35 05/24/21 10:44 Hydromorphone 1 Mg/1ml Inj 1 Mg/Ml Syringe IV 05/25/21 17:34 0.5 mg Q4H PRN PRN Administration PAIN Sodium Chloride 1,000 mls @ 999 mls/hr 05/20/21 14:32 05/20/21 15:57 Sodium Chloride 0.9% 1000 Ml IV 05/20/21 15:32 Infused .Q1H1M STA Infusion Sodium Chloride Confirm 05/20/21 14:51 Sodium Chloride 0.9% 1000 Ml Administered 05/20/21 14:52 Dose 1,000 mls @ ud .ROUTE .STK-MED ONE Sodium Chloride 1,000 mls @ 25 mls/hr 05/20/21 17:45 05/25/21 06:43 Sodium Chloride 0.9% 1000 Ml IV 06/19/21 17:44 25 mls/hr .Q24H BRUCE Administration Sodium Chloride 1,000 mls @ 999 mls/hr 05/20/21 18:41 05/20/21 19:00 Sodium Chloride 0.9% 1000 Ml IV 05/20/21 19:41 999 mls/hr .Q1H1M STA Administration Ceftriaxone Sodium/Dextrose 1 g in 50 mls @ 100 mls/hr 05/21/21 13:00 10/10 10:00 Rocephin 1 Gm-D5w 50 Ml Bag IV 05/27/21 12:59 100 mls/hr Q24H10 BRUCE Administration Azithromycin 500 mg in 250 mls @ 250 mls/hr 05/23/21 15:00 05/25/21 10:11 Zithromax 500 Mg/ 250 Ml Nacl Premix IV 06/22/21 14:59 250 mls/hr Q24H10 BRUCE Administration Insulin Human Lispro 0 unit 05/25/21 12:13 Insulin Lispro 1 Unit SQ 06/24/21 12:12 UD PRN HYPERGLYCEMIA Isosorbide Mononitrate 30 mg 05/21/21 16:00 05/25/21 09:55 Isosorbide Mononitrate 30 Mg Tab PO 06/20/21 15:59 30 mg DAILY BRUCE Administration Lisinopril 20 mg 05/21/21 16:00 05/25/21 09:55 Lisinopril 20 Mg Tablet PO 06/20/21 15:59 20 mg DAILY BRUCE Administration Metoprolol Tartrate 75 mg 05/20/21 23:00 05/20/21 22:57 Metoprolol Tartrate 50 Mg Tablet PO 05/20/21 23:01 75 mg ONCE ONE Administration Metoprolol Tartrate 50 mg 05/21/21 22:00 05/25/21 09:54 Metoprolol Tartrate 50 Mg Tablet PO 06/20/21 21:59 50 mg BID BRUCE Administration Metoprolol Tartrate 25 mg 05/21/21 22:00 05/25/21 09:55 Metoprolol Tartrate 25 Mg Tab PO 06/20/21 21:59 25 mg BID BRUCE Administration Ondansetron HCl 4 mg 05/20/21 13:15 05/20/21 13:21 Ondansetron Hcl 4 Mg/2 Ml Vial IV 05/20/21 13:16 4 mg STAT ONE Administration Ondansetron HCl Confirm 05/20/21 13:19 Ondansetron Hcl 4 Mg/2 Ml Vial Administered 05/20/21 13:20 Dose 4 mg .ROUTE .STK-MED ONE Ondansetron HCl 4 mg 05/20/21 17:35 Ondansetron Hcl 4 Mg/2 Ml Vial IV 06/19/21 17:34 Q6H PRN PRN NAUSEA/VOMITING Pantoprazole Sodium 40 mg 05/21/21 10:00 05/25/21 09:56 Pantoprazole 40 Mg Vial IV 06/20/21 09:59 40 mg Q24H10 BRUCE Administration Simvastatin 20 mg 05/20/21 23:00 05/20/21 22:58 Simvastatin 20 Mg Tablet PO 05/20/21 23:01 20 mg ONCE ONE Administration Simvastatin 20 mg 05/21/21 22:00 05/24/21 21:46 Simvastatin 20 Mg Tablet PO 06/20/21 21:59 20 mg HS BRUCE Administration Intake & Output (Last 24 hours) 05/23/21 05/24/21 05/25/21 05/26/21 11:59 11:59 11:59 11:59 Intake Total 2358 2615 480 Output Total 4975 1250 2350 Balance -2617 -1250 265 480 Weight 89.8 kg Microbiology Results (Last 24 hours) 05/21/21 09:28 Blood Blood Culture Gram Stain - Final Not Reportable 05/21/21 09:28 Blood Blood Culture - Final NO GROWTH 05/21/21 09:40 Blood Blood Culture Gram Stain - Final Not Reportable 05/21/21 09:40 Blood Blood Culture - Final NO GROWTH 05/23/21 10:00 Stool Salmonella/Shigella Screen - Pending 05/23/21 10:00 Stool Campylobacter Culture - Pending 05/23/21 10:00 Stool Escherichia coli Shiga Toxins EIA - Pending 05/23/21 10:00 Stool Ova and Parasite Concentrate Exam - Pending 05/23/21 10:00 Stool Ova and Parasite Result 1 - Pending 05/23/21 10:00 Stool Ova and Parasite Result 2 - Pending 05/23/21 10:00 Stool Ova and Parasite Result 3 - Pending 05/23/21 10:00 Stool Ova and Parasite Result 4 - Pending 05/23/21 10:00 Stool Antimicrobic Susceptibility - Pending 05/23/21 10:00 Stool Giardia lamblia (PCR) - Pending 05/23/21 10:00 Stool Cryptosporidium Antigen - Pending Laboratory Results (Last 24 hours) 05/25/21 10:00 C. difficile Screen NEGATIVE C.difficile 027-NAP1-B1 PRESUMPTIVE NEGATIVE Orders (Last 24 hours) Category Date Time Status C.Difficile by PCR Urgent Lab 05/25/21 10:00 Completed O&P+Crypto+Giardia [MR] Urgent Lab 05/25/21 08:57 Received Stool Culture [MR] Urgent Lab 05/25/21 08:57 Received Insulin Lispro [Humalog] Med 05/25/21 12:13 Discontinued See Dose Instructions SQ UD PRN Patient Care Notes (Last 24 hours) 05/25/21 15:10 (created 05/25/21 15:22) Respiratory Note by Asuncion Barros I CALLED [facility] BACK SINCE I HADN'T HEARD BACK FROM THE INFANT BABYSITTER. SHE WAS ABLE TO REACH HIM AND STATED HE WAS OUT ON DELIVERIES AND WOULD BE AT THE PATIENTS HOUSE WITHIN THE HOUR. PT VERBALIZED UNDERSTANDING THAT [facility] WOULD BE AT HIS HOUSE SOON TO DELIVER HIS OXYGEN CONCENTRATOR. PT DISCHARGED HOME ON THE PORTABLE [facility] OXYGEN TANK. Initialized on 05/25/21 15:22 - END OF NOTE 05/25/21 14:08 Nursing Note by Sammi Milner Called Patient's Keflex into [facility] at this time. Initialized on 05/25/21 14:08 - END OF NOTE 05/25/21 14:00 (created 05/25/21 14:43) Respiratory Note by Asuncion Barros [facility] PT. ALL PAPERWORK COMPLETED AND FAXED. PT WILL BE SENT HOME WITH [facility] PT WILL BE EDUCATED ON THE PORTABLE OXYGEN PRIOR TO DISCHARGE. AWAITING CALL FROM [employer] INFANT BABYSITTER. Initialized on 05/25/21 14:43 - END OF NOTE 05/25/21 13:15 (created 05/25/21 13:41) Respiratory Note by Asuncion Barros PT'S O2 SAT ON ROOM AIR WHILE AT REST WAS 87%. PT WAS PLACED BACK ON 2LPM VIA NASAL CANNULA AND O2 SAT INCREASED TO 93%. Initialized on 05/25/21 13:41 - END OF NOTE - Vitals & Intake/Output Vital Signs: Vital Signs Temperature 98.2 F 05/25/21 12:00 Pulse Rate 91 H 05/25/21 12:00 Respiratory Rate 18 05/25/21 12:00 Blood Pressure 137/79 05/25/21 12:00 O2 Sat by Pulse Oximetry 94 L 05/25/21 12:00 Intake & Output: Intake & Output 05/23/21 05/24/21 05/25/21 05/26/21 11:59 11:59 11:59 11:59 Intake Total 2358 2615 480 Output Total 4975 1250 2350 Balance -2617 -1250 265 480 Weight 89.8 kg - Lab Result Diagrams: 05/24/21 09:10 05/24/21 09:10 Lab Results-Last 24 Hrs: Lab Results-Last 24 Hours 05/25/21 Range/Units 10:00 C. difficile Screen NEGATIVE (NEGATIVE) C.difficile 027-NAP1-B1 PRESUMPTIVE NEGATIVE (NEGATIVE) Micro Results-Entire Visit: Microbiology 05/21/21 09:28 Blood Culture Gram Stain - Final Blood Not Reportable Blood Culture - Final NO GROWTH 05/21/21 09:40 Blood Culture Gram Stain - Final Blood Not Reportable Blood Culture - Final NO GROWTH 05/21/21 Unknown Urine Culture - Final Clean Catch Midstream NO GROWTH - Radiology Exams Ordered Rad Exams-Entire Visit: Radiology Procedures Category Date Time Status MODIFIED BARIUM SWALLOW (RAD) [MODIFIED BARIUM SWALLOW Exams 05/24/21 13:00 Completed EXAM] Routine - Procedures and Test Procedures and Tests throughout Hospitalization: Therapy Orders & Screens 05/20/21 23:31 Oxygen Nasal Cannula 2 lpm Comment: Diagnosis: gastroenteritis 05/23/21 07:08 Respiratory Therapy Assessment DAILY Comment: Diagnosis: c/o abdominal pain for 1-2 days 05/23/21 16:58 ST Eval & Treat ( Order) .as ordered Comment: Physician Instructions: Reason For Exam: Evaluate: Yes Treat: Yes Reason for Eval: possible aspiration pneumonia Diagnosis: PNEUMONIA, GASTROENTERITIS Discharge Exam General Appearance: no apparent distress, alert Neurologic Exam: alert, oriented x 3, cooperative, normal mood/affect, nml cerebellar function, sensation nml, No motor deficits Eye Exam: PERRL, EOMI, eyes nml inspection Ears, Nose, Throat Exam: normal ENT inspection, pharynx normal, moist mucous membranes Neck Exam: normal inspection, non-tender, supple, full range of motion Respiratory Exam: diminished breath sounds, No respiratory distress Cardiovascular Exam: regular rate/rhythm, normal heart sounds Gastrointestinal/Abdomen Exam: soft, No tenderness, No mass Male Genitalia Exam: deferred Rectal Exam: deferred Back Exam: normal inspection, normal range of motion, No CVA tenderness, No vertebral tenderness Extremity Exam: normal inspection, normal range of motion Skin Exam: normal color, warm, dry Final Diagnosis/Problem List - Final Discharge Diagnosis/Problem (1) Pneumonia Status: Acute Priority: High Assessment & Plan: Chief Complaint Diagnosis PNEUMONIA, GASTROENTERITIS Allergies Allergy/AdvReac Type Severity Reaction Status Date / Time naproxen Allergy Verified 05/20/21 20:19 Vital Signs (Last 24 hours) Temp Pulse Resp BP Pulse Ox 05/25/21 12:00 98.2 F 91 H 18 137/79 94 L 05/25/21 10:53 73 20 93 L 05/25/21 08:00 96.9 F 72 18 136/74 95 Home Medications Medication Instructions Recorded Confirmed Last Taken Type Isosorbide Mononitrate [Isosorbide 30 mg PO DAILY 05/20/21 05/20/21 05/19/21 09:00 History Mononitrate ER] Cephalexin Monohydrate [Keflex] 500 mg PO BID 7 Days #14 05/25/21 Unknown Rx Current Medications Discontinued Medications Generic Name Dose Route Start Last Admin Trade Name Freq PRN Reason Stop Dose Admin Acetaminophen 650 mg 05/21/21 00:45 05/24/21 15:40 Acetaminophen 325 Mg Tablet PO 06/20/21 00:44 650 mg Q4H PRN PRN Administration PAIN, FEVER, HEADACHE Albuterol/Ipratropium 3 ml 05/23/21 07:00 05/24/21 11:07 Ipratropium/Albuterol Sulfate 3 Ml Ampul.[facility] 06/22/21 06:59 3 ml Q4HRT BRUCE Administration Albuterol/Ipratropium 3 ml 05/24/21 15:00 05/25/21 10:51 Ipratropium/Albuterol Sulfate 3 Ml Ampul.[facility] 06/23/21 14:59 3 ml QIDRT BRUCE Administration Amlodipine Besylate 10 mg 05/20/21 23:00 05/21/21 00:56 Amlodipine Besylate 5 Mg Tablet PO 05/20/21 23:01 Not Given ONCE ONE Amlodipine Besylate 10 mg 05/21/21 22:00 05/24/21 21:47 Amlodipine Besylate 5 Mg Tablet PO 06/20/21 21:59 10 mg HS BRUCE Administration Aspirin 81 mg 05/21/21 16:00 05/25/21 09:55 Aspirin 81 Mg Tablet.Ec PO 06/20/21 15:59 81 mg DAILY BRUCE Administration Famotidine 20 mg 05/21/21 22:00 05/25/21 09:55 Famotidine 20 Mg Tablet PO 06/20/21 21:59 20 mg BID BRUCE Administration Fentanyl Citrate 25 mcg 05/20/21 13:15 05/20/21 13:21 Fentanyl Citrate 100 Mcg/2 Ml* Vial IV 05/20/21 13:16 25 mcg STAT ONE Administration Fentanyl Citrate Confirm 05/20/21 13:20 Fentanyl Citrate 100 Mcg/2 Ml* Vial Administered 05/20/21 13:21 Dose 100 mcg .ROUTE .STK-MED ONE Furosemide 20 mg 05/23/21 07:12 05/23/21 07:35 Furosemide 20 Mg/Vial IV 05/23/21 07:13 20 mg ONCE ONE Administration Gabapentin 400 mg 05/20/21 23:00 05/20/21 22:58 Gabapentin 400 Mg Capsule PO 05/20/21 23:01 400 mg ONCE ONE Administration Gabapentin 400 mg 05/21/21 22:00 05/25/21 09:55 Gabapentin 400 Mg Capsule PO 06/20/21 21:59 400 mg BID BRUCE Administration Hydrochlorothiazide 12.5 mg 05/21/21 16:00 05/25/21 09:56 Hydrochlorothiazide 25 Mg Tablet PO 06/20/21 15:59 12.5 mg DAILY BRUCE Administration Hydromorphone HCl 0.5 mg 05/20/21 17:35 05/24/21 10:44 Hydromorphone 1 Mg/1ml Inj 1 Mg/Ml Syringe IV 05/25/21 17:34 0.5 mg Q4H PRN PRN Administration PAIN Sodium Chloride 1,000 mls @ 999 mls/hr 05/20/21 14:32 05/20/21 15:57 Sodium Chloride 0.9% 1000 Ml IV 05/20/21 15:32 Infused .Q1H1M STA Infusion Sodium Chloride Confirm 05/20/21 14:51 Sodium Chloride 0.9% 1000 Ml Administered 05/20/21 14:52 Dose 1,000 mls @ ud .ROUTE .STK-MED ONE Sodium Chloride 1,000 mls @ 25 mls/hr 05/20/21 17:45 05/25/21 06:43 Sodium Chloride 0.9% 1000 Ml IV 06/19/21 17:44 25 mls/hr .Q24H BRUCE Administration Sodium Chloride 1,000 mls @ 999 mls/hr 05/20/21 18:41 05/20/21 19:00 Sodium Chloride 0.9% 1000 Ml IV 05/20/21 19:41 999 mls/hr .Q1H1M STA Administration Ceftriaxone Sodium/Dextrose 1 g in 50 mls @ 100 mls/hr 05/21/21 13:00 05/25/21 10:00 Rocephin 1 Gm-D5w 50 Ml Bag IV 05/27/21 12:59 100 mls/hr Q24H10 BRUCE Administration Azithromycin 500 mg in 250 mls @ 250 mls/hr 05/23/21 15:00 05/25/21 10:11 Zithromax 500 Mg/ 250 Ml Nacl Premix IV 06/22/21 14:59 250 mls/hr Q24H10 BRUCE Administration Insulin Human Lispro 0 unit 05/25/21 12:13 Insulin Lispro 1 Unit SQ 06/24/21 12:12 UD PRN HYPERGLYCEMIA Isosorbide Mononitrate 30 mg 05/21/21 16:00 05/25/21 09:55 Isosorbide Mononitrate 30 Mg Tab PO 06/20/21 15:59 30 mg DAILY BRUCE Administration Lisinopril 20 mg 05/21/21 16:00 05/25/21 09:55 Lisinopril 20 Mg Tablet PO 06/20/21 15:59 20 mg DAILY BRUCE Administration Metoprolol Tartrate 75 mg 05/20/21 23:00 05/20/21 22:57 Metoprolol Tartrate 50 Mg Tablet PO 05/20/21 23:01 75 mg ONCE ONE Administration Metoprolol Tartrate 50 mg 05/21/21 22:00 05/25/21 09:54 Metoprolol Tartrate 50 Mg Tablet PO 06/20/21 21:59 50 mg BID BRUCE Administration Metoprolol Tartrate 25 mg 05/21/21 22:00 05/25/21 09:55 Metoprolol Tartrate 25 Mg Tab PO 06/20/21 21:59 25 mg BID BRUCE Administration Ondansetron HCl 4 mg 05/20/21 13:15 05/20/21 13:21 Ondansetron Hcl 4 Mg/2 Ml Vial IV 05/20/21 13:16 4 mg STAT ONE Administration Ondansetron HCl Confirm 05/20/21 13:19 Ondansetron Hcl 4 Mg/2 Ml Vial Administered 05/20/21 13:20 Dose 4 mg .ROUTE .STK-MED ONE Ondansetron HCl 4 mg 05/20/21 17:35 Ondansetron Hcl 4 Mg/2 Ml Vial IV 06/19/21 17:34 Q6H PRN PRN NAUSEA/VOMITING Pantoprazole Sodium 40 mg 05/21/21 10:00 05/25/21 09:56 Pantoprazole 40 Mg Vial IV 06/20/21 09:59 40 mg Q24H10 BRUCE Administration Simvastatin 20 mg 05/20/21 23:00 05/20/21 22:58 Simvastatin 20 Mg Tablet PO 05/20/21 23:01 20 mg ONCE ONE Administration Simvastatin 20 mg 05/21/21 22:00 05/24/21 21:46 Simvastatin 20 Mg Tablet PO 06/20/21 21:59 20 mg HS BRUCE Administration Intake & Output (Last 24 hours) 05/23/21 05/24/21 05/25/21 05/26/21 11:59 11:59 11:59 11:59 Intake Total 2354 2615 480 Output Total 497 1250 2350 Balance -2617 -1250 265 480 Weight 89.8 kg Microbiology Results (Last 24 hours) 05/21/21 09:28 Blood Blood Culture Gram Stain - Final Not Reportable 05/21/21 09:28 Blood Blood Culture - Final NO GROWTH 05/21/21 09:40 Blood Blood Culture Gram Stain - Final Not Reportable 05/21/21 09:40 Blood Blood Culture - Final NO GROWTH 05/23/21 10:00 Stool Salmonella/Shigella Screen - Pending 05/23/21 10:00 Stool Campylobacter Culture - Pending 05/23/21 10:00 Stool Escherichia coli Shiga Toxins EIA - Pending 05/23/21 10:00 Stool Ova and Parasite Concentrate Exam - Pending 05/23/21 10:00 Stool Ova and Parasite Result 1 - Pending 05/23/21 10:00 Stool Ova and Parasite Result 2 - Pending 05/23/21 10:00 Stool Ova and Parasite Result 3 - Pending 05/23/21 10:00 Stool Ova and Parasite Result 4 - Pending 05/23/21 10:00 Stool Antimicrobic Susceptibility - Pending 05/23/21 10:00 Stool Giardia lamblia (PCR) - Pending 05/23/21 10:00 Stool Cryptosporidium Antigen - Pending Laboratory Results (Last 24 hours) 05/25/21 10:00 C. difficile Screen NEGATIVE C.difficile 027-NAP1-B1 PRESUMPTIVE NEGATIVE Orders (Last 24 hours) Category Date Time Status C.Difficile by PCR Urgent Lab 05/25/21 10:00 Completed O&P+Crypto+Giardia [MR] Urgent Lab 05/25/21 08:57 Received Stool Culture [MR] Urgent Lab 05/25/21 08:57 Received Insulin Lispro [Humalog] Med 05/25/21 12:13 Discontinued See Dose Instructions SQ UD PRN Patient Care Notes (Last 24 hours) 05/25/21 15:10 (created 05/25/21 15:22) Respiratory Note by Asuncion Barros I CALLED [facility] BACK SINCE I HADN'T HEARD BACK FROM THE INFANT BABYSITTER. SHE WAS ABLE TO REACH HIM AND STATED HE WAS OUT ON DELIVERIES AND WOULD BE AT THE PATIENTS HOUSE WITHIN THE HOUR. PT VERBALIZED UNDERSTANDING THAT [facility] WOULD BE AT HIS HOUSE SOON TO DELIVER HIS OXYGEN CONCENTRATOR. [facility] Initialized on 05/25/21 15:22 - END OF NOTE 05/25/21 14:08 Nursing Note by Sammi Milner Called Patient's Keflex into [facility] at this time. Initialized on 05/25/21 14:08 - END OF NOTE 05/25/21 14:00 (created 05/25/21 14:43) Respiratory Note by [place],Asuncion I SPOKE WITH [facility] OUT OF [facility] WARN[facility] TO SET UP HOME OXYGEN FOR PT. ALL PAPERWORK COMPLETED AND FAXED. PT WILL BE SENT HOME WITH [facility] PT WILL BE EDUCATED ON THE PORTABLE OXYGEN PRIOR TO DISCHARGE. AWAITING CALL FROM [facility] INFANT BABYSITTER. Initialized on 05/25/21 14:43 - END OF NOTE 05/25/21 13:15 (created 05/25/21 13:41) Respiratory Note by Asuncion Barros PT'S O2 SAT ON ROOM AIR WHILE AT REST WAS 87%. PT WAS PLACED BACK ON 2LPM VIA NASAL CANNULA AND O2 SAT INCREASED TO 93%. Initialized on 05/25/21 13:41 - END OF NOTE Code(s): J18.9 - PNEUMONIA, UNSPECIFIED ORGANISM (2) Abdominal pain Status: Resolved Code(s): R10.9 - UNSPECIFIED ABDOMINAL PAIN (3) Gastroenteritis Status: Resolved Code(s): K52.9 - NONINFECTIVE GASTROENTERITIS AND COLITIS, UNSPECIFIED (4) Acute renal injury Status: Resolved Code(s): N17.9 - ACUTE KIDNEY FAILURE, UNSPECIFIED (5) Hypoxia Status: Resolved Code(s): R09.02 - HYPOXEMIA (6) Gall bladder disease Status: Chronic Code(s): K82.9 - DISEASE OF GALLBLADDER, UNSPECIFIED - Discharge Disposition: Home, Self-Care Condition: Stable Prescriptions: New Cephalexin Monohydrate [Keflex] 500 mg PO BID 7 Days #14 Continue lisinopriL [Lisinopril] 20 mg PO DAILY Metoprolol Tartrate 50 mg [Lopressor 50 MG] 75 mg PO BID Hydrochlorothiazide 12.5 mg PO DAILY Gabapentin 400 mg PO BID Famotidine 20 mg PO BID Atorvastatin Calcium 20 mg PO HS Aspirin 81 mg PO DAILY Amlodipine Besylate 10 mg PO HS Isosorbide Mononitrate [Isosorbide Mononitrate ER] 30 mg PO DAILY Instructions: Viral Gastroenteritis Additional Instructions: Please call Dr. Evans's office on Thursday to schedule a follow up appointment for 05/31/21. Forms: Discharge Instructions
== END 2021-05-25 15:14 | disposition home or self-care (01) | DRG 194 ==
LOC: ED 12:37 → MED SURG 18:46 → OBSVTOIN 05-23 07:22
PROVIDERS: ADMIT General Practice; ATTEND General Practice
DX: J18.9 Pneumonia, unspecified organism (principal); N17.9 Acute kidney failure, unspecified; R10.9 Unspecified abdominal pain; K52.9 Noninfective gastroenteritis and colitis, unspecified; R09.02 Hypoxemia; K82.9 Disease of gallbladder, unspecified; R79.89 Other specified abnormal findings of blood chemistry; I25.10 Atherosclerotic heart disease of native coronary artery without angina pectoris; R11.2 Nausea with vomiting, unspecified; R06.82 Tachypnea, not elsewhere classified; R53.1 Weakness; R10.33 Periumbilical pain; I10 Essential (primary) hypertension; E78.5 Hyperlipidemia, unspecified; E86.0 Dehydration; Z79.899 Other long term (current) drug therapy; Z20.828 Contact with and (suspected) exposure to other viral communicable diseases
CPT/HCPCS: 0241U; 36000; 36415; 36600; 71045; 74176; 74230; 76705; 80053; 81001; 82150; 82375; 82803; 82947; 83605; 83690; 84484; 85025; 87040; 87045; 87046; 87086; 87328; 87329; 87493; 92611; 93005; 93306; 94640; 94760; 96360; 96374; 96375; 99285; G0378; J0456; J0696; J1170; J1940; J2405; J3010; A9270-GY

== ENCOUNTER 2024-08-11 23:35 | Emergency (ER) | payer MEDICARE, OTHER ==
[2024-08-11 23:47] VITALS: TEMP 99.6
[2024-08-11] MEDS ORDERED: DUONEB 0.5-3 MG/3 ml Neb IH ONE (23:50)
--- NOTE | 2024-08-12 00:10 | ERPHSYRPT ---
- History of Present Illness Time Seen by Provider: 08/11/24 23:43 Source: patient, police Exam Limitations: no limitations Patient Subjective Stated Complaint: c/o shortness of breath Triage Nursing Assessment: patient brought into ED with c/o shortness of breath. patient normally wears 2 liters of oxygen at night as needed. patient states that the detention doesn't have any oxygen. patient has a non-productive cough, lung sounds clear throughout, skin w/n/d, gait steady, patient is 98% on 2L, patient has heart history, denies any pain at this time Physician History: 69 years old male with multiple medical problems including coronary artery disease with CABG, hypertension, hyperlipidemia, prediabetic, congestive heart failure with an EF of 20%, low on LifeVest, valve replacement, COPD needing oxygen 2 L specially at nighttime as needed presented in the ER by PD from detention with increasing shortness of breath since yesterday. Patient also spiked a temperature of 103 earlier. Patient is currently afebrile. Reports coughing up clear to yellow sputum is small in amount with no chest pain or palpitations. Getting short of breath with exertion. No lower extremity swellings. Allergies/Adverse Reactions: naproxen Allergy (Verified 08/11/24 23:47) Home Medications: Amlodipine Besylate 10 mg PO HS 02/06/21 [History] lisinopriL [Lisinopril] 20 mg PO DAILY 02/06/21 [History] Isosorbide Mononitrate [Isosorbide Mononitrate ER] 30 mg PO DAILY 05/20/21 [H istory] Furosemide 20 mg [Lasix 20 mg] 20 mg PO DAILY 08/12/24 [History] HydrALAzine HCL 25 MG TAB [Apresoline 25 MG TABLET] 25 mg PO BID 08/12/24 [History] Metoprolol Tartrate 25 mg [Lopressor 25MG Tab] 25 mg PO BID 08/12/24 [History] Hx Tetanus, Diphtheria Vaccination/Date Given: No Hx Influenza Vaccination/Date Given: No Hx Pneumococcal Vaccination/Date Given: No Travel Risk - International Travel Have you traveled outside of the country in past 3 weeks: No - Emerging Infectious Disease Are you exhibiting symptoms associated with any current EIDs: Yes Symptoms: Shortness of Breath - Review of Systems Constitutional: Fever Ears, Nose, & Throat: No Symptoms Respiratory: Cough, Dyspnea, Dyspnea on Exertion ([place]), Wheezing Cardiac: No Symptoms Abdominal/Gastrointestinal: No Symptoms Genitourinary Symptoms: No Symptoms Musculoskeletal: Arthralgias Skin: No Symptoms Neurological: No Symptoms Endocrine: No Symptoms Hematologic/Lymphatic: No Symptoms - Past Medical History Pertinent Past Medical History: Yes Neurological History: Other ENT History: No Pertinent History Cardiac History: Coronary Artery Disease, Hypertension Respiratory History: No Pertinent History Endocrine Medical History: No Pertinent History Musculoskeletal History: No Pertinent History GI Medical History: GERD History: No Pertinent History Psycho-Social History: No Pertinent History Male Reproductive Disorders: No Pertinent History - Past Surgical History Past Surgical History: Yes Neuro Surgical History: No Pertinent History Cardiac: CABG, Valve Replacement Respiratory: No Pertinent History Gastrointestinal: No Pertinent History Genitourinary: No Pertinent History Musculoskeletal: No Pertinent History Male Surgical History: No Pertinent History Other Surgical History: Triple Bypass and Valve Replacement 2009 Significant Family History: no pertinent family hx - Social History Smoking Status: Former smoker How long have you smoked: 10 years Exposure to second hand smoke: No Drug Use: marijuana - Social Determinants of Health Will the patient participate in the screening: Declined to provide - Nursing Vital Signs Nursing Vital Signs: Initial Vital Signs Temperature 99.6 F 08/11/24 23:37 Pulse Rate 83 08/11/24 23:37 Respiratory Rate 22 08/11/24 23:37 O2 Sat by Pulse Oximetry 94 L 08/11/24 23:37 Pain Scale Pain Intensity 0 - Physical Exam General Appearance: no apparent distress, alert Eye Exam: PERRL/EOMI Ears, Nose, Throat Exam: hearing grossly normal Neck Exam: normal inspection, non-tender, supple, full range of motion Respiratory Exam: diminished breath sounds, rhonchi, wheezing Cardiovascular/Chest Exam: normal heart sounds, regular rate/rhythm Abdominal/Gastrointestinal Exam: soft, normal bowel sounds, No tenderness Extremity Exam: non-tender, normal range of motion, normal inspection Neurologic Exam: alert, oriented x 3, cooperative Skin Exam: normal color SpO2 Interpretation: O2 applied SpO2: 95 O2 Delivery: Nasal Cannula - Course EKG Interpreted by Me: RATE ([id number]), Sinus Rhythm, NORMAL AXIS, Right Bundle Branch Block, Non-specific ST Changes Ordered Tests: Active Orders 24 hr Category Date Time Status PROCALCITONIN Stat Lab 08/12/24 00:00 Completed TROPONIN Q4H Lab 08/12/24 04:03 Completed UA W/RFX UR CULTURE Stat Lab 08/12/24 03:08 Completed Respiratory Therapy Assessment DAILY RT 08/12/24 00:15 Completed Medication Summary Discontinued Medications Generic Name Dose Route Start Last Admin Trade Name Freq PRN Reason Stop Dose Admin Albuterol/Ipratropium 3 ml 08/11/24 23:43 08/12/24 00:13 Ipratropium/Albuterol Sulfate 3 Ml Ampul.Neb IH 08/11/24 23:44 3 ml STAT ONE Administration Albuterol/Ipratropium Confirm 08/11/24 23:50 Ipratropium/Albuterol Sulfate 3 Ml Ampul.Neb Administered 08/11/24 23:51 Dose 3 ml IH .STK-MED ONE Azithromycin 500 mg in 250 mls @ 250 mls/hr 08/12/24 00:36 08/12/24 03:56 Zithromax 500 Mg/ 250 Ml Nacl Premix IV 08/12/24 01:35 Infused STAT STA Infusion Ceftriaxone Sodium 2 gm in 100 mls @ 200 mls/hr 08/12/24 00:36 08/12/24 03:09 Rocephin 2 Gm/100 Ml Nacl IV 08/12/24 01:05 Infused STAT ONE Infusion Ceftriaxone Sodium Confirm 08/12/24 00:43 Rocephin 2 Gm/100 Ml Nacl Administered 08/12/24 00:44 Dose 2 gm in 100 mls @ ud IV .STK-MED ONE Azithromycin Confirm 08/12/24 01:30 Zithromax 500 Mg/ 250 Ml Nacl Premix Administered 08/12/24 01:31 Dose 500 mg in 250 mls @ ud IV .STK-MED ONE Patiromer 8.4 gm 08/12/24 00:37 08/12/24 00:49 Patiromer Calcium Sorbitex 8.4 Gm Powd.Pack PO 08/12/24 00:38 8.4 gm STAT STA Administration Patiromer Confirm 08/12/24 00:43 Patiromer Calcium Sorbitex 8.4 Gm Powd.Pack Administered 08/12/24 00:44 Dose 8.4 gm PO .STK-MED ONE Sodium Bicarbonate 50 meq 08/12/24 00:38 08/12/24 00:50 Sodium Bicarbonate 1 Meq/Ml 50ml Syringe IV 08/12/24 00:39 50 meq STAT ONE Administration Sodium Bicarbonate Confirm 08/12/24 00:43 Sodium Bicarbonate 1 Meq/Ml 50ml Syringe Administered 08/12/24 00:44 Dose 50 meq IV .STK-MED ONE Lab/Rad Data: Laboratory Result Diagrams 08/11/24 00:09 08/11/24 00:09 Laboratory Results 08/12/24 08/12/24 08/12/24 Range/Units 04:03 03:08 00:00 WBC (4.23-9.07) x10^3/uL RBC (4.63-6.08) x10^6/uL Hgb (13.7-17.5) g/dL Hct (40.1-51.0) % MCV (79.0-92.2) fL MCH (25.7-32.2) pg MCHC (32.3-36.5) g/dL RDW (11.6-14.4) % Plt Count (163-337) x10^3/uL MPV (9.4-12.4) fL Gran % (34.0-67.9) % Immature Gran % (Auto) (0.001-0.429) % Nucleat RBC Rel Count (0.00-0.2) % Eos # (Auto) (0.04-0.54) x10^3/uL Immature Gran # (Auto) (0.001-0.031) x10^3u/L Absolute Lymphs (auto) (1.32-3.57) x10^3/uL Absolute Monos (auto) (0.30-0.82) x10^3/uL Absolute Nucleated RBC (0.00-0.012) x10^3u/L Lymphocytes % (21.8-53.1) % Monocytes % (5.3-12.2) % Eosinophils % (0.8-7.0) % Basophils % (0.2-1.2) % Absolute Granulocytes (1.78-5.38) x10^3/uL Basophils # (0.01-0.08) x10^3/uL Sodium (135-145) mmol/L Potassium (3.5-5.1) mmol/L Chloride (98-107) mmol/L Carbon Dioxide (22-30) mmol/L Anion Gap (5-15) MEQ/L BUN (9-20) mg/dL Creatinine (0.66-1.25) mg/dL Estimated GFR ML/MIN Glucose (74-106) mg/dL Lactic Acid (0.4-2.0) Calcium (8.4-10.2) mg/dL Magnesium (1.6-2.3) mg/dL Total Bilirubin (0.2-1.3) mg/dL AST (17-59) U/L ALT (0-50) U/L Alkaline Phosphatase (38-126) U/L Troponin I 0.057 H* (0.000-0.033) ng/mL NT-Pro-B Natriuret Pep (<300) pg/mL Serum Total Protein (6.3-8.2) g/dL Albumin (3.5-5.0) g/dL Procalcitonin 0.101 H (0.030-0.080) ng/mL Urine Color Yellow (Yellow) Urine Appearance Clear (Clear) Urine pH 7.0 (4.6-8.0) Ur Specific [place] 1.020 (1.005-1.030) Urine Protein 30 (Negative) Urine Glucose (UA) Negative (Negative) mg/dL Urine Ketones Negative (Negative) Urine Blood Negative (Negative) Urine Nitrite Negative (Negative) Urine Bilirubin Negative (Negative) Urine Urobilinogen 1.0 A (0.2) mg/dL Ur Leukocyte Esterase Negative (Negative) U Hyaline Cast (Auto) NONE SEEN (0-2) /LPF Urine Microscopic RBC 0-2 (0-5) /HPF Urine Microscopic WBC 0-2 (0-5) /HPF Ur Epithelial Cells None Seen (None Seen) /HPF Urine Bacteria None Seen (None Seen) /HPF Urine Culture Reflexed NO (NO) Influenza Type A Ag (NEGATIVE) Influenza Type B Ag (NEGATIVE) RSV (PCR) (NEGATIVE) SARS-CoV-2 (PCR) (NEGATIVE) 08/11/24 08/11/24 08/11/24 Range/Units 23:43 00:10 00:09 WBC (4.23-9.07) x10^3/uL RBC (4.63-6.08) x10^6/uL Hgb (13.7-17.5) g/dL Hct (40.1-51.0) % MCV (79.0-92.2) fL MCH (25.7-32.2) pg MCHC (32.3-36.5) g/dL RDW (11.6-14.4) % Plt Count (163-337) x10^3/uL MPV (9.4-12.4) fL Gran % (34.0-67.9) % Immature Gran % (Auto) (0.001-0.429) % Nucleat RBC Rel Count (0.00-0.2) % Eos # (Auto) (0.04-0.54) x10^3/uL Immature Gran # (Auto) (0.001-0.031) x10^3u/L Absolute Lymphs (auto) (1.32-3.57) x10^3/uL Absolute Monos (auto) (0.30-0.82) x10^3/uL Absolute Nucleated RBC (0.00-0.012) x10^3u/L Lymphocytes % (21.8-53.1) % Monocytes % (5.3-12.2) % Eosinophils % (0.8-7.0) % Basophils % (0.2-1.2) % Absolute Granulocytes (1.78-5.38) x10^3/uL Basophils # (0.01-0.08) x10^3/uL Sodium (135-145) mmol/L Potassium (3.5-5.1) mmol/L Chloride (98-107) mmol/L Carbon Dioxide (22-30) mmol/L Anion Gap (5-15) MEQ/L BUN (9-20) mg/dL Creatinine (0.66-1.25) mg/dL Estimated GFR ML/MIN Glucose (74-106) mg/dL Lactic Acid 1.4 (0.4-2.0) Calcium (8.4-10.2) mg/dL Magnesium (1.6-2.3) mg/dL Total Bilirubin (0.2-1.3) mg/dL AST (17-59) U/L ALT (0-50) U/L Alkaline Phosphatase (38-126) U/L Troponin I 0.051 H* (0.000-0.033) ng/mL NT-Pro-B Natriuret Pep 5700 (<300) pg/mL Serum Total Protein (6.3-8.2) g/dL Albumin (3.5-5.0) g/dL Procalcitonin (0.030-0.080) ng/mL Urine Color (Yellow) Urine Appearance (Clear) Urine pH (4.6-8.0) Ur Specific [place] (1.005-1.030) Urine Protein (Negative) Urine Glucose (UA) (Negative) mg/dL Urine Ketones (Negative) Urine Blood (Negative) Urine Nitrite (Negative) Urine Bilirubin (Negative) Urine Urobilinogen (0.2) mg/dL Ur Leukocyte Esterase (Negative) U Hyaline Cast (Auto) (0-2) /LPF Urine Microscopic RBC (0-5) /HPF Urine Microscopic WBC (0-5) /HPF Ur Epithelial Cells (None Seen) /HPF Urine Bacteria (None Seen) /HPF Urine Culture Reflexed (NO) Influenza Type A Ag NEGATIVE (NEGATIVE) Influenza Type B Ag NEGATIVE (NEGATIVE) RSV (PCR) POSITIVE A (NEGATIVE) SARS-CoV-2 (PCR) NEGATIVE (NEGATIVE) 08/11/24 08/11/24 Range/Units 00:09 00:09 WBC 9.7 H (4.23-9.07) x10^3/uL RBC 4.93 (4.63-6.08) x10^6/uL Hgb 13.2 L (13.7-17.5) g/dL Hct 42.6 (40.1-51.0) % MCV 86.4 (79.0-92.2) fL MCH 26.8 (25.7-32.2) pg MCHC 31.0 L (32.3-36.5) g/dL RDW 18.6 H (11.6-14.4) % Plt Count 301 (163-337) x10^3/uL MPV 9.3 L (9.4-12.4) fL Gran % 80.4 H (34.0-67.9) % Immature Gran % (Auto) 0.3 (0.001-0.429) % Nucleat RBC Rel Count 0.0 (0.00-0.2) % Eos # (Auto) 0.32 (0.04-0.54) x10^3/uL Immature Gran # (Auto) 0.03 (0.001-0.031) x10^3u/L Absolute Lymphs (auto) 0.77 L (1.32-3.57) x10^3/uL Absolute Monos (auto) 0.71 (0.30-0.82) x10^3/uL Absolute Nucleated RBC 0.00 (0.00-0.012) x10^3u/L Lymphocytes % 7.9 L (21.8-53.1) % Monocytes % 7.3 (5.3-12.2) % Eosinophils % 3.3 (0.8-7.0) % Basophils % 0.8 (0.2-1.2) % Absolute Granulocytes 7.80 H (1.78-5.38) x10^3/uL Basophils # 0.08 (0.01-0.08) x10^3/uL Sodium 140 (135-145) mmol/L Potassium 5.6 H (3.5-5.1) mmol/L Chloride 103 (98-107) mmol/L Carbon Dioxide 25 (22-30) mmol/L Anion Gap 18.1 H (5-15) MEQ/L BUN 31 H (9-20) mg/dL Creatinine 1.59 H (0.66-1.25) mg/dL Estimated GFR 46.4 ML/MIN Glucose 149 H (74-106) mg/dL Lactic Acid (0.4-2.0) Calcium 9.5 (8.4-10.2) mg/dL Magnesium 2.2 (1.6-2.3) mg/dL Total Bilirubin 1.10 (0.2-1.3) mg/dL AST 40 (17-59) U/L ALT 29 (0-50) U/L Alkaline Phosphatase 102 (38-126) U/L Troponin I (0.000-0.033) ng/mL NT-Pro-B Natriuret Pep (<300) pg/mL Serum Total Protein 8.7 H (6.3-8.2) g/dL Albumin 4.8 (3.5-5.0) g/dL Procalcitonin (0.030-0.080) ng/mL Urine Color (Yellow) Urine Appearance (Clear) Urine pH (4.6-8.0) Ur Specific [place] (1.005-1.030) Urine Protein (Negative) Urine Glucose (UA) (Negative) mg/dL Urine Ketones (Negative) Urine Blood (Negative) Urine Nitrite (Negative) Urine Bilirubin (Negative) Urine Urobilinogen (0.2) mg/dL Ur Leukocyte Esterase (Negative) U Hyaline Cast (Auto) (0-2) /LPF Urine Microscopic RBC (0-5) /HPF Urine Microscopic WBC (0-5) /HPF Ur Epithelial Cells (None Seen) /HPF Urine Bacteria (None Seen) /HPF Urine Culture Reflexed (NO) Influenza Type A Ag (NEGATIVE) Influenza Type B Ag (NEGATIVE) RSV (PCR) (NEGATIVE) SARS-CoV-2 (PCR) (NEGATIVE) - Progress Progress: re-examined Air Movement: good Progress Note: 08/12/24 01:20 69 years old with multiple medical problems including CAD with CABG, CHF on LifeVest is evaluated for increasing shortness of breath and cough with fever earlier. Patient is afebrile here. He is tachypneic, given neb treatment and placed on 2 L oxygen with sats in mid 90s. Chest x-ray showed right-sided pneumonia and given a dose of Rocephin and Zithromax. Workup showed white count of 9, chemistries with lactate of 1.4, positive procalcitonin of 0.1. Initial troponin of 0.051 and a BNP of 5700s, potassium of 5.6 with a EKG showing no acute tall T waves. No ST elevations. Given a dose of Veltassa and an ampule of bicarb. Patient also has positive RSV and negative flu and COVID. Discussed with Dr. Gurrola hospitalist, recommended transfer to facility with cardiology services. Discussed with Dr. Chopra ER physician at [facility], reviewed history, workup and agreed with transfer. I have shared the results of workup with patient and plan of transfer which she understands and agrees. Complexity of problems addressed: High acute Amount and complexity of data reviewed and analyzed: Extensive Risk of complications/morbidity/mortality of patient management: High risk Blood Culture(s) Obtained: Yes Antibiotics given: Yes Discussed with : Pita, Other (Dr. Chopra ER physician [facility]) Will see patient in: ED Counseled pt/family regarding: lab results, diagnosis, rad results Medical Desision Making - Discussion of managment Care discussed with:: on-call "doc" (Dr. Nav Jimenez [facility]) Reviewed:: Test results Agreed on:: Treatment plan Will see patient: in ED - Diagnostic Testing Diagnostic test were ordered, analyzed, and reviewed by me: Yes Radiological Interpretation: Interpreted by me, Reviewed by me - Risk of complications The pt has a mod risk of morbidity or mortality based on: Need for prescription drug management The pt has a high risk of morbidity or mortality based on: Decision regarding hospitilization or escalation of hosp level of care - Departure Departure Disposition: Transfer Clinical Impression: Pneumonia, Acute bronchiolitis due to respiratory syncytial virus (RSV), Hyperkalemia Condition: Stable Critical Care Time: No Referrals: EDENILSON ZUNIGA [CONSULTING PHYSICIAN] - Follow up/PCP as directed
[2024-08-12] MEDS: DUONEB 0.5-3 MG/3 ml Neb IH ONE (00:13)
[2024-08-12 00:20] LABS: BASOPHIL % 0.8 % (0.2-1.2); Basophil (Absolute #) 0.08 x10^3/uL (0.01-0.08); Eosinophil % 3.3 % (0.8-7.0); Eosinophil (Absolute #) 0.32 x10^3/uL (0.04-0.54); Hematocrit 42.6 % (40.1-51.0); Hemoglobin 13.2 g/dL (13.7-17.5); IMMATURE GRAN # 0.03 x10^3u/L (0.001-0.031); IMMATURE GRAN % 0.3 % (0.001-0.429); Lymphocyte (Absolute #) 0.77 x10^3/uL (1.32-3.57); Lymphocytes % 7.9 % (21.8-53.1); Mean Cell Volume 86.4 fL (79.0-92.2); Mean Corpuscular Hemoglobin 26.8 pg (25.7-32.2); Mean Platelet Volume 9.3 fL (9.4-12.4); Monocyte (Absolute #) 0.71 x10^3/uL (0.30-0.82); Monocytes % 7.3 % (5.3-12.2); Neutrophil % 80.4 % (34.0-67.9); Platelet Count 301 x10^3/uL (163-337); Red Blood Count 4.93 x10^6/uL (4.63-6.08); Red Cell Distribution Width 18.6 % (11.6-14.4); White Blood Count 9.7 x10^3/uL (4.23-9.07)
[2024-08-12 00:31] LABS: ALBUMIN 4.8 g/dL (3.5-5.0); ANION GAP 18.1 MEQ/L (5-15); BILIRUBIN,TOTAL 1.1 mg/dL (0.2-1.3); Calcium 9.5 mg/dL (8.4-10.2); Creatinine 1 1.59 mg/dL (0.66-1.25); EST GLOMERULAR FILTRATION RATE 46.4 ML/MIN; MAGNESIUM 2.2 mg/dL (1.6-2.3); Potassium 5.6 mmol/L (3.5-5.1); Total Protein 8.7 g/dL (6.3-8.2)
[2024-08-12] MEDS ORDERED: VELTASSA PO ONE (00:43)
[2024-08-12] MEDS ORDERED: ROCEPHIN 2 GM/100 ML NACL 2 GM/100 ML IVPB IV ONE (00:43)
[2024-08-12] MEDS ORDERED: SODIUM BICARBONATE 50 MEQ/50 ML ABBOJECT IV ONE (00:43)
[2024-08-12] MEDS: VELTASSA PO STA (00:49)
[2024-08-12] MEDS: ROCEPHIN 2 GM/100 ML NACL 2 GM/100 ML IVPB IV ONE (00:49)
[2024-08-12 00:50] LABS: INFLUENZA A NEGATIVE (NEGATIVE); INFLUENZA B NEGATIVE (NEGATIVE); SARS-CoV-2 Xpert Express NEGATIVE (NEGATIVE)
[2024-08-12] MEDS: SODIUM BICARBONATE 50 MEQ/50 ML ABBOJECT IV ONE (00:50)
[2024-08-12 00:59] LABS: RESPIRATORY SYNCTIAL VIRUS POSITIVE (NEGATIVE)
[2024-08-12 01:05] LABS: TROPONIN 0.051 ng/mL (0.000-0.033)
[2024-08-12] MEDS ORDERED: Zithromax 500 MG/ 250 ML NaCl Premix 500 MG/250 ML IVPB IV ONE (01:30)
[2024-08-12] MEDS: Zithromax 500 MG/ 250 ML NaCl Premix 500 MG/250 ML IVPB IV STA (01:35)
[2024-08-12 03:55] LABS: Appearance Clear (Clear); Bacteria None Seen /HPF (None Seen); Bilirubin Negative (Negative); Blood Negative (Negative); Epithelial Cells None Seen /HPF (None Seen); Glucose, Urine Negative (Negative); Hyaline Casts NONE SEEN /LPF (0-2); Ketones Negative (Negative); Leukocyte Esterase Negative (Negative); Nitrite Negative (Negative); Protein,Urine Dip 30 (Negative); RBC 0-2 /HPF (0-5); WBC 0-2 /HPF (0-5)
[2024-08-12 04:46] VITALS: PULSE 85
[2024-08-12 06:07] VITALS: BP 146/87; RESP 24
--- NOTE | 2024-08-12 08:44 | XRAY ---
Indication: Short of breath. Comparison: May 23, 2021 Portable chest again hyperinflated with clearing previous bilateral airspace disease. Heart now borderline enlarged again with cardiac valve replacement. Bony thorax intact again with osteopenia and mild degenerative changes. New multiple overlying electronic monitoring devices.
[2024-08-13 00:50] VITALS: O2SAT 95
== END 2024-08-12 06:21 | disposition short-term general hospital (02) ==
LOC: EEVIPCON 23:35 → ED 23:35
DX: J18.9 Pneumonia, unspecified organism (principal); J21.0 Acute bronchiolitis due to respiratory syncytial virus; J44.0 Chronic obstructive pulmonary disease with (acute) lower respiratory infection; E87.5 Hyperkalemia; R77.8 Other specified abnormalities of plasma proteins; R09.02 Hypoxemia; I10 Essential (primary) hypertension; Z79.899 Other long term (current) drug therapy
CPT/HCPCS: 0241U; 36415; 71045; 80053; 81001; 83605; 83735; 83880; 84145; 84484; 85025; 87040; 93005; 93041; 94640; 96365; 96366; 96368; 96375; 99285; 96374; J0456; J0696; A9270-GY